=== PATIENT | male | born 1935 | race Caucasian/White ===

== ENCOUNTER 2017-08-22 17:05 | Observation (INO) ==
--- NOTE | 2017-08-22 17:58 | Emergency Department Note ---
General Adult HPI - General Chief complaint: Cold/Flu Symptoms Stated complaint: cough and rib pain Time Seen by Provider: 08/22/17 17:32 Source: patient Mode of arrival: ambulatory Limitations: no limitations - History of Present Illness HPI Narrative: 82-year-old male presents with cough worsening in the last 24 hours. He states on Saturday he started with some sinus drainage and in the last couple of days he has started to have more of a cough. He has pain in his ribs in the back from a cough. He denies shortness of breath more than normal. He does not have COPD. He states the pain in his ribs is in the back. He has not been coughing up anything. He does have a history of pneumonia. He is on blood thinners due to blood clots in his lungs. He is eating okay and drinking a little bit less. He has not had any nausea vomiting or diarrhea. - Related Data Home Medications Medication Instructions Recorded Confirmed Warfarin [Coumadin] 5 mg PO DAILY 06/14/15 08/22/17 levETIRAcetam [Levetiracetam] 500 mg PO BID 06/14/15 04/22/17 Docusate Sodium [Stool Softener] 250 mg PO DAILY 11/30/16 08/22/17 Carvedilol [Coreg] 3.125 mg PO ONCE 08/22/17 08/22/17 Previous Rx's Medication Instructions Recorded Furosemide [Lasix] 20 mg PO BIDCC #30 tablet 06/17/15 Potassium Chloride [Kdur] 10 meq PO QAMCC #30 tablet 06/17/15 Allergies Allergy/AdvReac Type Severity Reaction Status Date / Time atorvastatin Allergy Mild Joint Pain Verified 04/22/17 11:22 Review of Systems All systems ED: reviewed and negative except as stated. Past Medical History - Past Medical History Medical history: Reports: arthritis, CHF, seizures, other (hearing loss. Blood clot DVT. BiPAP CPAP dependent. Urinary retention. Prostate cancer. Factor V Leiden) Psychiatric history: Reports: no psych history Surgical history ED: Reports: appendectomy, cataract, cholecystectomy, pacemaker /AICD, other (prostatectomy. Surgery of back knee and shoulder.) Family history: Reports: non-contributory - Social History smoking status: Never smoker Alcohol use: Reports: Occasionally (2 plus drinks a day) Drug use: Reports: none Physical Exam Limitations: no limitations General appearance: alert, in no apparent distress Head: atraumatic Eye: Present: normal appearance. Absent: conjunctival injection Neck: Present: normal inspection, full ROM Chest: Present: normal inspection, symmetric chest wall rise, tenderness ( posterior lower ribs) Respiratory: Present: normal lung sounds bilaterally. Absent: wheezes Cardiovascular: Present: regular rate, normal heart sounds Abdominal: Present: soft, normal bowel sounds. Absent: tenderness Extremities: Present: normal inspection, full ROM Neurological: Present: alert, oriented X3 Psychiatric: Present: normal affect, normal mood Skin: Present: warm, dry, intact Course Course Narrative: I talked with the family about having him stay here at least for the night and they thought that that would be a good idea. He did need to have couple liters of oxygen because he had some desaturation in the low 90s. He was stable throughout his stay. Vital Signs Temperature 97.4 F 08/22/17 17:05 Pulse Rate 67 08/22/17 17:05 Respiratory Rate 16 08/22/17 17:05 Blood Pressure 133/83 08/22/17 17:05 Pulse Oximetry (%) 95 08/22/17 17:05 Temperature 97.4 F 08/22/17 17:05 Pulse Rate 67 08/22/17 17:05 Respiratory Rate 16 08/22/17 17:05 Blood Pressure 122/64 08/22/17 18:53 Pulse Oximetry (%) 94 08/22/17 18:53 Medical Decision Making - Lab Data Lab results reviewed: Yes I reviewed the patient's lab results. Result diagrams: 08/22/17 18:42 08/22/17 18:42 Lab Results 08/22/17 08/22/17 Range/Units 18:42 18:42 WBC 3.2 L (4.5-11.0) K/mcL RBC 4.11 L (4.50-5.90) M/mcL Hgb 12.5 L (13.5-16.5) g/dL Hct 36.5 L (41.0-55.0) % MCV 88.9 (80.0-100.0) fL MCH 30.4 (26.0-34.0) pg MCHC 34.2 (31.0-36.0) g/dL RDW 14.0 (11.5-14.5) % Plt Count 145 (140-440) K/mcL MPV 8.4 (7.4-10.4) fL Gran % 48.9 (38.0-78.0) % Lymph % (Auto) 36.9 (15.5-49.0) % [place] % (Auto) 13.5 H (1.0-12.0) % Eos % (Auto) 0.4 (0.0-7.0) % Baso % (Auto) 0.3 (0.0-2.0) % Gran # 1.6 L (1.8-8.0) K/mcL Lymph # (Auto) 1.2 L (1.5-4.8) K/mcL [place] # (Auto) 0.4 (0.1-0.9) K/mcL Eos # (Auto) 0 (0.0-0.7) K/mcL Baso # (Auto) 0 (0.0-0.3) K/mcL Sodium 134 (133-145) mmol/L Potassium 4.3 (3.3-5.1) mmol/L Chloride 97 (96-108) mmol/L Carbon Dioxide 25 (22-30) mmol/L Anion Gap 12.0 (8-16) BUN 8 (8-23) mg/dl Creatinine 0.8 (0.7-1.2) mg/dl GFR Calculation 83 Glucose 103 (70-105) mg/dL Calcium 8.3 L (8.6-10.4) mg/dl Total Bilirubin 0.3 (0.0-1.0) mg/dL AST 21 (0-37) U/l ALT 15 (0-40) U/l Alkaline Phosphatase 112 (39-117) U/L Total Protein 6.6 (5.9-8.4) gm/dL Albumin 4.2 (3.2-5.2) gm/dL Globulin 2.4 (2.2-3.7) gm/dL Albumin/Globulin Ratio 1.8 (1.0-2.3) - Radiology Data Radiology results reviewed: Yes I reviewed the patient's radiology results. 1. Bilateral lower lobe infiltrates consistent with pneumonia. 2. Cardiomegaly, unchanged Disposition Pt seen by AIR CONDITIONING INSTALLER/PA only: Yes Clinical Impression: Pneumonia and influenza Disposition: Xfer As Inpt ([facility]) Condition: Fair Referrals: Baldeck,Milton, [Primary Care Provider] -
--- NOTE | 2017-08-22 18:17 | XRay Report ---
INDICATION: Cough. Chest pain. TECHNIQUE: PA and lateral upright chest x-ray COMPARISON: Chest x-rays dated 11/30/2016, 05/03/2016, 06/16/2015 FINDINGS:No change in left transvenous pacemaker leads. Bilateral lower lobe infiltrates. Findings are consistent with pneumonia. An upper lungs are negative. There is cardiomegaly. This is unchanged. Vascularity is not significantly distended. No pleural fluid. IMPRESSION: 1. Bilateral lower lobe infiltrates consistent with pneumonia. 2. Cardiomegaly, unchanged Interpreted and Authenticated by: Willis Calderón 08/22/17
[2017-08-22] MEDS ORDERED: guaiFENesin/CODEINE 10 ML UDC PO ONE (19:02)
[2017-08-22 19:05] LABS: Basophils # (Auto) 0 K/mcL (0.0-0.3); Basophils % (Auto) 0.3 % (0.0-2.0); Eosinophils # (Auto) 0 K/mcL (0.0-0.7); Eosinophils % (Auto) 0.4 % (0.0-7.0); Granulocytes % (Auto) 48.9 % (38.0-78.0); Lymphocytes # (Auto) 1.2 K/mcL (1.5-4.8); Lymphocytes % (Auto) 36.9 % (15.5-49.0); Mean Cell Volume 88.9 fL (80.0-100.0); Mean Corpuscular HGB Conc 34.2 g/dL (31.0-36.0); Mean Corpuscular Hemoglobin 30.4 pg (26.0-34.0); Monocytes # (Auto) 0.4 K/mcL (0.1-0.9); Monocytes % (Auto) 13.5 % (1.0-12.0); Platelet Count 145 K/mcL (140-440); RBC 4.11 M/mcL (4.50-5.90)
[2017-08-22 19:23] LABS: ALT/SGPT 15 U/l (0-40); Albumin 4.2 gm/dL (3.2-5.2); Albumin/Globulin Ratio 1.8 (1.0-2.3); Alkaline Phosphatase 112 U/L (39-117); Blood Urea Nitrogen 8 mg/dl (8-23)
[2017-08-22] MEDS ORDERED: OSELTAMIVIR PHOSPHATE 75 MG CAPSULE PO ONE (19:27)
[2017-08-22] MEDS ORDERED: levETIRAcetam 500 MG TABLET PO ONE (20:52)
[2017-08-22] MEDS ORDERED: CARVEDILOL 3.125 MG TABLET PO SCH (22:40)
[2017-08-22] MEDS ORDERED: ACETAMINOPHEN 325 MG TABLET PO PRN (22:40)
[2017-08-22] MEDS ORDERED: cefTRIAXone 2 GM in DEXTROSE 5% IN WATER 50 ML IV SCH (22:40)
[2017-08-22] MEDS ORDERED: MAGNESIUM HYDROXIDE 30 ML ORAL.SUSP PO PRN (22:40)
[2017-08-22] MEDS ORDERED: cefTRIAXone 2 GM VIAL ONE (23:28)
--- NOTE | 2017-08-22 23:32 | Emergency Department Note ---
ED Note Addendum Note Addendum: I saw this patient with Yanira Lisa PA-C and agree with her evaluation management documentation. Is notable that he is 82 years old has influenza B bilateral pneumonia on x-ray. We started Tamiflu and contacted hospitalist Dr. Sewell, for admission as we were concerned about his stability especially as his saturations were dropping down into the low 90s. She agreed to accept the patient further inpatient care
--- NOTE | 2017-08-22 23:35 | Internal Med History&Physical ---
Medical - H&P: HPI Patient information: Note initiated : 08/22/17 at 11:35 pm Service Date, if different from initiated Date: [] Patient: Mike Diaz 82 y/o M admitted on 08/22/17 for pneumonia Chief complaint: cough and chest pain History of present illness: Mr. Diaz is a 82 year old M, with hx of recurrent CHF, s/p pacemaker placement , Factor V Leiden deficiency, DVT, seizure disorder, presented to the ED with 2- day-history of coughing and right sided pleuritic pain. Denies fever and chills. - Constitutional Constitutional: Present: as per HPI - Cardiovascular Cardiovascular: Present: leg edema, pedal edema. Absent: chest pain - Respiratory Respiratory: Present: cough, pain with cough - Gastrointestinal Gastrointestinal: Absent: abdominal pain, diarrhea - Genitourinary Genitourinary: Present: difficulty urinating. Absent: dysuria - Psychiatric Psychiatric: Absent: depression Medical - H&P: PMH Medical history: Medical History Pneumonia (Acute) ADHF (acute decompensated heart failure) (Acute) Tooth abscess (Acute) Rib pain on right side (Acute) Bronchitis (Acute) CHF NYHA class III (symptoms with mildly strenuous activities) (Acute) Postoperative bleeding from mouth (Acute) Constipation (Acute) Weakness generalized (Acute) Anticoagulant effect (Acute) Warfarin-induced coagulopathy (Acute) Pneumonia and influenza (Acute) Functional capacity: independent ambulation Smoking status: Never smoker Drug use: none Alcohol use: rarely Medical - H&P: Meds Home Medications Medication Instructions Recorded Confirmed Type Warfarin [Coumadin] 5 mg PO DAILY 06/14/15 08/22/17 History levETIRAcetam [Levetiracetam] 500 mg PO BID 06/14/15 04/22/17 History Furosemide [Lasix] 20 mg PO BIDCC #30 tablet 06/17/15 08/22/17 Rx Potassium Chloride [Kdur] 10 meq PO QAMCC #30 tablet 06/17/15 08/22/17 Rx Docusate Sodium [Stool Softener] 250 mg PO DAILY 11/30/16 08/22/17 History Carvedilol [Coreg] 3.125 mg PO ONCE 08/22/17 08/22/17 History Allergies Allergy/AdvReac Type Severity Reaction Status Date / Time atorvastatin Allergy Mild Joint Pain Verified 04/22/17 11:22 Medical - H&P: Exam - Constitutional Vitals: Temp Pulse Resp BP Pulse Ox 97.4 F 60 20 128/76 96 08/22/17 17:05 08/22/17 20:34 08/22/17 21:40 08/22/17 21:40 08/22/17 21:40 General appearance: mild distress, obese - Head Head exam: Present: normal inspection - Eye Eye exam: Present: EOMI, PERRL - Respiratory Respiratory exam: Present: chest wall tenderness, rhonchi - Cardiovascular Cardiovascular exam: Present: normal rate and rhythm - GI/Abdominal GI/Abdominal exam: Present: normal bowel sounds, soft - Extremities Exam Extremities exam: Present: pedal edema Medical - H&P: Reslt - Labs CBC & Chem 7: 08/22/17 18:42 08/22/17 18:42 Labs: Short CBC 08/22/17 Range/Units 18:42 WBC 3.2 L (4.5-11.0) K/mcL Hgb 12.5 L (13.5-16.5) g/dL Hct 36.5 L (41.0-55.0) % Plt Count 145 (140-440) K/mcL BMP 08/22/17 18:42 Sodium 134 Potassium 4.3 Chloride 97 Carbon Dioxide 25 BUN 8 Creatinine 0.8 Glucose 103 Calcium 8.3 L Liver Function 08/22/17 Range/Units 18:42 Total Bilirubin 0.3 (0.0-1.0) mg/dL AST 21 (0-37) U/l ALT 15 (0-40) U/l Alkaline Phosphatase 112 (39-117) U/L Albumin 4.2 (3.2-5.2) gm/dL - Impressions TECHNIQUE: PA and lateral upright chest x-ray COMPARISON: Chest x-rays dated 11/30/2016, 05/03/2016, 06/16/2015 FINDINGS:No change in left transvenous pacemaker leads. Bilateral lower lobe infiltrates. Findings are consistent with pneumonia. An upper lungs are negative. There is cardiomegaly. This is unchanged. Vascularity is not significantly distended. No pleural fluid. IMPRESSION: 1. Bilateral lower lobe infiltrates consistent with pneumonia. 2. Cardiomegaly, unchanged Medical - H&P: A/P (1) Pneumonia Current visit: No Status: Acute (2) Rib pain on right side Current visit: No Status: Acute - Narrative A/P Narrative: 82-YEAR-OLD MALE PRESENTED 08/22 WITH FOLLOWING PROBLEMS: ACUTE: - BILATERAL PNEUMONIA: VIRAL VS BACTERIAL - INFLUENZA POS CHRONIC MEDICAL PROBLEMS: - RECURRENT CHF - RECURRENT DVT - LEIDEN FACTOR V DEFICIENCY - SEIZURE DISORDER PLAN: Tamifu Rocephin empirically Cough suppressant and pain control continue home meds incl coumadin
[2017-08-22] MEDS: 0.9 % SODIUM CHLORIDE 10 ML SYRINGE IV SCH (23:37)
[2017-08-22] MEDS ORDERED: ACETAMINOPHEN 325 MG TABLET PO ONE (23:43)
[2017-08-22] MEDS: guaiFENesin/CODEINE 10 ML UDC PO PRN (23:58)
[2017-08-23] MEDS: 0.9 % SODIUM CHLORIDE 10 ML SYRINGE IV SCH ×4 (05:37→23:02)
[2017-08-23] MEDS: CARVEDILOL 3.125 MG TABLET PO SCH (07:51)
[2017-08-23] MEDS: FUROSEMIDE 20 MG TABLET PO SCH ×2 (07:52→17:48)
[2017-08-23] MEDS: POTASSIUM CHLORIDE 10 MEQ TABLET PO SCH (07:52)
[2017-08-23] MEDS: DOCUSATE SODIUM 100 MG CAPSULE PO SCH (08:44)
[2017-08-23] MEDS: OSELTAMIVIR PHOSPHATE 75 MG CAPSULE PO SCH ×2 (08:44→19:53)
[2017-08-23] MEDS: levETIRAcetam 500 MG TABLET PO SCH ×2 (10:27→19:53)
[2017-08-23] MEDS: oxyCODONE/APAP 5/325MG TABLET PO PRN ×2 (12:05→21:46)
[2017-08-23] MEDS ORDERED: WARFARIN 5 MG TABLET PO SCH (14:00)
[2017-08-23] MEDS: cefTRIAXone 2 GM VIAL IV SCH (14:41)
--- NOTE | 2017-08-23 21:44 | Internal Med Progress Note ---
Medical - PN: Subj Patient information: Note initiated : 08/23/17 at 9:36 pm Service Date, if different from initiated Date: [] Patient: Mike Diaz 82 y/o M admitted on 08/22/17 for Cough and Rib Pain/ Pneumonia. Mr. Diaz is a 82 year old M, with hx of recurrent CHF, s/p pacemaker placement , Factor V Leiden deficiency, DVT, seizure disorder, presented to the ED with 2- day-history of coughing and right sided pleuritic pain. Denies fever and chills. Interval history: 08/23: Continues to have harsh coughing and pleuritic pain. Feeling too weak and sick to go home. - Constitutional Vitals: Vital Signs Temp Pulse Resp BP Pulse Ox 97 F 60 18 118/62 93 08/23/17 19:57 08/23/17 19:57 08/23/17 19:57 08/23/17 19:57 08/23/17 19:57 Period Temp Pulse Resp BP Sys/Jamison Pulse Ox Last 24 Hr 96.5 F-99.7 F 60-61 16-20 114-132/54-76 91-96 Intake and Output 08/23/17 08/23/17 08/23/17 05:59 13:59 21:59 Intake Total 840 / 840 1400 / 1400 Output Total 200 / 200 975 / 975 400 / 400 Balance -200 / -200 -135 / -135 1000 / 1000 Weight 208 lb Intake & Output: Intake & Output 08/23/17 08/23/17 08/23/17 05:59 13:59 21:59 Intake Total 840 / 840 1400 / 1400 Output Total 200 / 200 975 / 975 400 / 400 Balance -200 / -200 -135 / -135 1000 / 1000 Weight 208 lb Intake: Oral 840 / 840 1400 / 1400 Output: Void Amount 200 / 200 975 / 975 400 / 400 # of times incontinent of urine 0 / 0 0 / 0 Other: Meal Breakfast Lunch Percent of Meal Consumed 75% 100% Feeding Ability Independent Independent # Voids 1 1 # Bowel Movements 1 # of times incontinent of 0 Bowels General appearance: no acute distress, obese - Respiratory Respiratory exam: Present: rhonchi - Cardiovascular Cardiovascular exam: Present: normal rate and rhythm - GI/Abdominal GI/Abdominal exam: Present: normal bowel sounds, soft - Extremities Exam Extremities exam: Present: pedal edema Medical - PN: Obj Da - Labs CBC & Chem 7: 08/22/17 18:42 08/22/17 18:42 Labs: Abnormal Lab Results 08/22/17 08/22/17 08/22/17 20:18 18:42 18:42 WBC 3.2 L RBC 4.11 L Hgb 12.5 L Hct 36.5 L [place] % (Auto) 13.5 H Gran # 1.6 L Lymph # (Auto) 1.2 L PT 23.2 H INR 2.0 H Calcium 8.3 L Meds: Medications Acetaminophen (Tylenol) 650 mg PO Q6HP PRN PRN Reason: PAIN/FEVER > 101 Carvedilol (Coreg) 3.125 mg PO [facility] Last Admin: 08/23/17 07:51 Dose: 3.125 mg Ceftriaxone Sodium (Rocephin) 2 gm IV Q24H [facility] Last Admin: 08/23/17 14:41 Dose: 2 gm Docusate Sodium (Colace) 200 mg PO DAILY [facility] Last Admin: 08/23/17 08:44 Dose: 200 mg [facility] Last Admin: 08/23/17 17:48 Dose: 20 mg Guaifenesin/Codeine Phosphate (Robitussin Ac) 10 ml PO Q4HP PRN PRN Reason: Cough Last Admin: 08/22/17 23:58 Dose: 10 ml Levetiracetam (Keppra) 500 mg PO BID [facility] Last Admin: 08/23/17 19:53 Dose: 500 mg Magnesium Hydroxide (Milk Of Magnesia) 30 ml PO DAILYP PRN PRN Reason: Constipation Last Admin: 08/23/17 14:27 Dose: 30 ml Oseltamivir Phosphate (Tamiflu) 75 mg PO BID [facility] Last Admin: 08/23/17 19:53 Dose: 75 mg Oxycodone/Acetaminophen (Percocet 5-325 Mg) 1 - 2 tab PO Q4HP PRN PRN Reason: PAIN LEVEL 3-6 Last Admin: 08/23/17 12:05 Dose: 1 tab Potassium Chloride (Kdur) 10 meq PO [facility] Last Admin: 08/23/17 07:52 Dose: 10 meq Sodium Chloride (Saline Flush) 10 ml IV Q8 [facility] Last Admin: 08/23/17 19:53 Dose: 10 ml Warfarin Sodium (Coumadin) 5 mg PO DAILY@1400 [facility] Last Admin: 08/23/17 14:19 Dose: 5 mg Medical - PN: A/P - Time Spent With Patient Total time spent is greater than 50% in coordination of care (as documented) at patient's floor/unit and/or counseling patient: (1) Pneumonia Status: Acute Current Visit: No (2) Rib pain on right side Status: Acute Current Visit: No - Narrative A/P Narrative: A/P Narrative: 82-YEAR-OLD MALE PRESENTED 08/22 WITH FOLLOWING PROBLEMS: ACUTE: - BILATERAL PNEUMONIA: VIRAL VS BACTERIAL - INFLUENZA POS CHRONIC MEDICAL PROBLEMS: - RECURRENT CHF - RECURRENT DVT - LEIDEN FACTOR V DEFICIENCY - SEIZURE DISORDER CONTNUE: Tamifu Rocephin empirically Cough suppressant and pain control continue home meds incl coumadin DISPO: tentative discharge home in am Medical - PN: Qual - Stroke Symptom Onset Unknown: No - VTE Deep Vein Thrombosis/Pulmonary Embolism Present on Admission: No
[2017-08-23] MEDS: guaiFENesin/CODEINE 10 ML UDC PO PRN (21:47)
[2017-08-24] MEDS: 0.9 % SODIUM CHLORIDE 10 ML SYRINGE IV SCH (06:00)
[2017-08-24] MEDS: FUROSEMIDE 20 MG TABLET PO SCH (08:22)
[2017-08-24] MEDS: CARVEDILOL 3.125 MG TABLET PO SCH (08:22)
[2017-08-24] MEDS: POTASSIUM CHLORIDE 10 MEQ TABLET PO SCH (08:22)
[2017-08-24] MEDS: cefTRIAXone 2 GM VIAL IV SCH (09:37)
[2017-08-24] MEDS: OSELTAMIVIR PHOSPHATE 75 MG CAPSULE PO SCH (09:38)
[2017-08-24] MEDS: DOCUSATE SODIUM 100 MG CAPSULE PO SCH (09:38)
[2017-08-24] MEDS: levETIRAcetam 500 MG TABLET PO SCH (09:39)
--- NOTE | 2017-08-24 09:53 | Discharge Summary ---
Medical - DS: Prov Patient information: Note initiated : 08/24/17 at 9:51 am Service Date, if different from initiated Date: [] Patient: Mike Diaz 82 y/o M admitted on 08/22/17 for Cough and Rib Pain/ Pneumonia. Chief Complaint: [] Date of admission: 08/22/17 22:25 Discharge date: 08/24/17 Primary care physician: Dallas Hancock Consults: 08/22/17 19:50 Consult to Physician [CONS] Stat Comment: Consulting Provider: Jorge Luis Sewell Reason For Exam: Physician to Consult Medical - DS: Meds - Discharge Medications Prescriptions: guaiFENesin/CODEINE [Robitussin AC] 10 ml PO Q4HP PRN #473 ml PRN Reason: Cough Oseltamivir Phosphate [Tamiflu] 75 mg PO BID #6 cap oxyCODONE/APAP [Percocet 5-325 mg] 1 - 2 tab PO Q6HP PRN #10 tablet PRN Reason: Pain Level 3-6 Active and Home Medications: Home Medications Warfarin [Coumadin] 5 mg PO DAILY 06/14/15 [History Confirmed 08/23/17 Last Taken 08/22/17 09:00] levETIRAcetam [Levetiracetam] 500 mg PO BID 06/14/15 [History Confirmed Last Taken 08/22/17] Furosemide [Lasix] 20 mg PO BIDCC #30 tablet 06/17/15 [Rx Confirmed 08/22/17 Last Taken 08/22/17] Potassium Chloride [Kdur] 10 meq PO QAMCC #30 tablet 06/17/15 [Rx Confirmed 06/29 Last Taken 08/22/17] Docusate Sodium [Stool Softener] 250 mg PO DAILY 11/30/16 [History Confirmed 06/29 Last Taken 08/22/17] Carvedilol [Coreg] 3.125 mg PO QAM 08/22/17 [History Confirmed 08/23/17 Last Taken 08/22/17] Medical - DS: Hosp Hospital course: Mr. Diaz is a 82 year old M A/P Narrative: 82-YEAR-OLD MALE PRESENTED 08/22 WITH FOLLOWING PROBLEMS: ACUTE: - BILATERAL PNEUMONIA: VIRAL VS BACTERIAL - INFLUENZA POS CHRONIC MEDICAL PROBLEMS: - RECURRENT CHF - RECURRENT DVT - LEIDEN FACTOR V DEFICIENCY - SEIZURE DISORDER Hospital Course: Patient was started on Tamiflu and Rocephin IV for influenza and bilateral pneumonia. Pain control was achieved with [place] 5/325. He has remained afebrile and hemodynamically stable. He was discharged in stable condition and ambulating well without assistance. Discharge diagnosis: Pneumonia, Influeza Secondary discharge diagnosis: Seizure disorder Reason for admission: Pneumonia Pertinent studies/significant findings: CXR: IMPRESSION: 1. Bilateral lower lobe infiltrates consistent with pneumonia. 2. Cardiomegaly, unchanged - Time Spent with Patient Total time spent providing and/or coordinating discharge services: Less than 30 minutes Medical - DS: Exam - Constitutional Vitals: Vital Signs Temp Pulse Resp BP Pulse Ox 08/24/17 08:00 96.4 F L 16 116/74 96 08/24/17 04:19 96.6 F L 60 18 106/60 94 08/24/17 00:00 98.7 F 60 18 114/56 93 08/23/17 19:57 97 F 60 18 118/62 93 08/23/17 16:00 96.5 F L 16 124/70 92 08/23/17 11:54 97.7 F 20 132/70 95 Intake and Output 08/23/17 08/24/17 08/24/17 21:59 05:59 13:59 Intake Total 1400 / 1400 600 / 600 300 / 300 Output Total 400 / 400 900 / 900 400 / 400 Balance 1000 / 1000 -300 / -300 -100 / -100 Intake: Oral 1400 / 1400 600 / 600 300 / 300 Output: Void Amount 400 / 400 900 / 900 400 / 400 # of times incontinent of urine 0 / 0 Other: Meal Lunch Breakfast Percent of Meal Consumed 100% 100% Feeding Ability Independent # Voids 1 # Bowel Movements 1 0 # of times incontinent of 0 Bowels Weight 209 lb Medical - DS: Data Labs on day of discharge: Labs from last 24 hours 08/24/17 08:04 PT 23.4 H INR 2.0 H Medical - DS: A/P - Patient/Caregiver Discharge Instructions Activity: increase activity as tolerated Diet: Cardiac - Problem Maintenance (1) Pneumonia Status: Acute Qualifiers: Pneumonia type: due to influenza A virus Laterality: bilateral Lung location: lower lobe of lung Qualified Code(s): J11.00 - Influenza due to unidentified influenza virus with unspecified type of pneumonia (2) Rib pain on right side Status: Acute - Follow up Plan Follow up with: Dallas Hancock DO [Primary Care Provider] - Disposition: Home, Self-Care Prognosis: Good Rehab Potential: Good Overall status at discharge: patient is progressing back to baseline Medical - DS: Qual - VTE Deep Vein Thrombosis/Pulmonary Embolism Present on Admission: No
== END 2017-08-24 13:00 | disposition home or self-care (01) ==
LOC: ED 17:05 → MEDSUR 17:05
PROVIDERS: ADMIT Specialist; ATTEND Specialist

== ENCOUNTER 2018-09-22 15:50 | Inpatient (IN) ==
--- NOTE | 2018-09-22 16:07 | Emergency Department Note ---
General Adult HPI - General Chief complaint: Cold/Flu Symptoms Stated complaint: cold/flu Time Seen by Provider: 09/22/18 16:06 Source: patient, family Mode of arrival: ambulatory Limitations: no limitations - History of Present Illness HPI Narrative: 83-year-old male presents with generally feeling poor. Has had a cold for at least a week and then the last 48 hours he became much worse. He has had a cough, runny nose, sneezing, and some intermittent diarrhea for the last week. states in the last 24-48 hours he is just gone drastically downhill. Is much more short of breath and generally weak. He is also complaining of left ear pain. Positive chills, unknown fever. No nausea or vomiting. Does have a productive cough with greenish sputum. No shortness of breath or difficulty breathing or chest pain. No abdominal pain. No rash Associated symptoms: Reports: cough, fever/chills, loss of appetite, malaise, weakness. Denies: chest pain, diaphoresis, headaches, nausea/vomiting, rash, shortness of breath, syncope - Related Data Home Medications Medication Instructions Recorded Confirmed Warfarin [Coumadin] 5 mg PO DAILY 06/14/15 01/13/18 levETIRAcetam [Levetiracetam] 500 mg PO BID 06/14/15 01/13/18 Docusate Sodium [Stool Softener] 250 mg PO DAILY 11/30/16 01/13/18 Carvedilol [Coreg] 3.125 mg PO QAM 08/22/17 01/13/18 Previous Rx's Medication Instructions Recorded Furosemide [Lasix] 20 mg PO BIDCC #30 tablet 06/17/15 Potassium Chloride [Kdur] 10 meq PO QAMCC #30 tablet 06/17/15 Oseltamivir Phosphate [Tamiflu] 75 mg PO BID #6 cap 08/24/17 guaiFENesin/CODEINE [Robitussin AC] 10 ml PO Q4HP PRN #473 ml 08/24/17 levETIRAcetam [Keppra] 500 mg PO BID tablet 08/24/17 oxyCODONE/APAP [Percocet 5-325 mg] 1 - 2 tab PO Q6HP PRN #10 tab 08/24/17 Amoxicillin/Potassium Clav 875 mg PO Q12H #20 tab 01/12/18 [Augmentin] Clindamycin HCl [Cleocin] 300 mg PO TID #30 cap 06/12/18 HYDROcodone/APAP 5/325MG [[place] 1 tab PO Q4HP PRN #20 tab 06/12/18 5-325Mg] Allergies Allergy/AdvReac Type Severity Reaction Status Date / Time atorvastatin AdvReac Intermediate Joint Pain Verified 09/22/18 15:54 Review of Systems All systems ED: reviewed and negative except as stated. Past Medical History - Past Medical History [facility] Narrative: Medical History (Last Reviewed 08/23/17 @ 01:22 by Jorge Luis Sewell MD) Pneumonia (Acute) ADHF (acute decompensated heart failure) (Acute) Tooth abscess (Acute) Rib pain on right side (Acute) Bronchitis (Acute) CHF NYHA class III (symptoms with mildly strenuous activities) (Acute) Medical history: Reports: arthritis, cancer (prostate - on androgen deprivation therapy (Lupron).), CHF, seizures, other (Hearing loss. DVT X 3. BiPAP CPAP dependent. Urinary retention. Factor V Leiden. DDD. Pacemaker. ). Denies: coronary artery disease, CVA, DM, myocardial infarction, thyroid disease, TIA Psychiatric history: Denies: anxiety, depression Surgical history ED: Reports: appendectomy, cataract, cholecystectomy, orthopedic, other (left shoulder repair. Knee. Shoulder. ), pacemaker/AICD, other (prostatectomy.) - Social History smoking status: Never smoker Alcohol use: Reports: Daily (4 oz wine daily.) Drug use: Reports: none Physical Exam Limitations: no limitations General appearance: alert, in no apparent distress Head: atraumatic, normocephalic, normal inspection Eye: Present: normal appearance. Absent: conjunctival injection ENT: normal oropharynx, mucous membranes moist, normal external ear exam, nasal congestion, other (Left TM with canal with mild injection and TM is red, dull and bulging. Right TM pearly sanchez with positive light reflex and canals clear) Neck: Present: normal inspection, trachea midline. Absent: tenderness, lymphadenopathy Chest: Present: symmetric chest wall rise Respiratory: Present: normal lung sounds bilaterally, other (Lung sounds diminished in the bases bilaterally otherwise clear throughout). Absent: respiratory distress, rales/crackles, accessory muscle use Cardiovascular: Present: regular rate, normal heart sounds Abdominal: Present: soft, normal bowel sounds. Absent: distention, tenderness, guarding, mass Extremities: Present: pedal edema (2+ bilat) Neurological: Present: alert, oriented X3 Psychiatric: Present: normal affect, normal mood Skin: Present: warm, dry, intact, normal color. Absent: rash, cyanosis, di aphoresis, erythema Course Course Narrative: 1800 I spoke with hospitalist, Dr. Landa who agrees to accept this patient. Vital Signs Temperature 98.6 F 09/22/18 15:51 Pulse Rate 66 09/22/18 15:51 Respiratory Rate 25 H 09/22/18 15:51 Blood Pressure 119/67 09/22/18 15:51 Pulse Oximetry (%) 94 09/22/18 15:51 Temperature 98.6 F 09/22/18 15:51 Pulse Rate 59 L 09/22/18 17:22 Respiratory Rate 25 H 09/22/18 15:51 Blood Pressure 115/93 09/22/18 17:31 Pulse Oximetry (%) 95 09/22/18 17:22 Medical Decision Making - Lab Data Lab results reviewed: Yes I reviewed the patient's lab results. Result diagrams: 09/22/18 16:41 09/22/18 16:41 Lab Results 09/22/18 09/22/18 Range/Units 16:41 16:41 WBC 4.8 (4.5-11.0) K/mcL RBC 3.40 L (4.50-5.90) M/mcL Hgb 10.7 L (13.5-16.5) g/dL Hct 30.9 L (41.0-55.0) % MCV 90.8 (80.0-100.0) fL MCH 31.4 (26.0-34.0) pg MCHC 34.5 (31.0-36.0) g/dL RDW 13.0 (11.5-14.5) % Plt Count 171 (140-440) K/mcL MPV 8.0 (7.4-10.4) fL Gran % 62.8 (38.0-78.0) % Lymph % (Auto) 21.4 (15.5-49.0) % [place] % (Auto) 14.6 H (1.0-12.0) % Eos % (Auto) 0.8 (0.0-7.0) % Baso % (Auto) 0.4 (0.0-2.0) % Gran # 3.0 (1.8-8.0) K/mcL Lymph # (Auto) 1.0 L (1.5-4.8) K/mcL [place] # (Auto) 0.7 (0.1-0.9) K/mcL Eos # (Auto) 0 (0.0-0.7) K/mcL Baso # (Auto) 0 (0.0-0.3) K/mcL Sodium 121 L (133-145) mmol/L Potassium 4.3 (3.3-5.1) mmol/L Chloride 86 L (96-108) mmol/L Carbon Dioxide 25 (22-30) mmol/L Anion Gap 10.0 (8-16) BUN 9 (8-23) mg/dl Creatinine 0.7 (0.7-1.2) mg/dl GFR Calculation 87 Glucose 111 H (70-105) mg/dL Calcium 8.3 L (8.6-10.4) mg/dl Total Bilirubin 1.0 (0.0-1.0) mg/dL AST 16 (0-37) U/l ALT 14 (0-40) U/l Alkaline Phosphatase 102 (39-117) U/L NT-Pro-B Natriuret Pep 1459.0 H (0-450) pg/ml Total Protein 6.1 (5.9-8.4) gm/dL Albumin 3.6 (3.2-5.2) gm/dL Globulin 2.5 (2.2-3.7) gm/dL Albumin/Globulin Ratio 1.4 (1.0-2.3) - Radiology Data Radiology results reviewed: Yes I reviewed the patient's radiology results. Disposition Pt seen by NANOTECHNOLOGIST/PA only: Yes Clinical Impression: Left otitis media, Generalized weakness, CHF (congestive heart failure) Disposition: Xfer As Inpt ([facility]) Condition: Fair Referrals: Dallas Hancock DO [Primary Care Provider] - Time of Disposition: 18:00
--- NOTE | 2018-09-22 16:23 | XRay Report ---
INDICATION: Dyspnea TECHNIQUE: AP chest x-ray,portable semiupright COMPARISON: Previous chest x-rays dated 07/15/2018 and 01/13/2018 FINDINGS:Left transvenous pacemaker leads are unchanged. There is cardiomegaly. Pulmonary vascularity is prominent consistent with pulmonary congestion. No focal parenchymal infiltrate. No definite pulmonary edema. No focal abnormality. Pulmonary vascularity is more prominent than on previous examination consistent with interval cardiac decompensation Superior subluxation of the right humeral head and Hill-Sachs deformity. Findings are chronic. There are 2 screws within the left glenoid. IMPRESSION: 1. Cardiomegaly and pulmonary congestion 2. Findings are worse than on previous examination 3. No focal pulmonary 4. 1 infiltrate Interpreted and Authenticated by: Willis Calderón 09/22/18
[2018-09-22 17:12] LABS: Basophils # (Auto) 0 K/mcL (0.0-0.3); Basophils % (Auto) 0.4 % (0.0-2.0); Eosinophils # (Auto) 0 K/mcL (0.0-0.7); Eosinophils % (Auto) 0.8 % (0.0-7.0); Granulocytes % (Auto) 62.8 % (38.0-78.0); Lymphocytes % (Auto) 21.4 % (15.5-49.0); Mean Cell Volume 90.8 fL (80.0-100.0); Mean Corpuscular HGB Conc 34.5 g/dL (31.0-36.0); Monocytes # (Auto) 0.7 K/mcL (0.1-0.9); Monocytes % (Auto) 14.6 % (1.0-12.0); Platelet Count 171 K/mcL (140-440)
[2018-09-22 17:31] LABS: ALT/SGPT 14 U/l (0-40); Albumin 3.6 gm/dL (3.2-5.2); Albumin/Globulin Ratio 1.4 (1.0-2.3); Alkaline Phosphatase 102 U/L (39-117); Blood Urea Nitrogen 9 mg/dl (8-23)
[2018-09-22] MEDS ORDERED: 0.9 % SODIUM CHLORIDE 1,000 ML IV ONE (17:34)
[2018-09-22] MEDS ORDERED: FUROSEMIDE 20 MG/2 ML VIAL IV ONE (17:57)
[2018-09-22] MEDS ORDERED: FUROSEMIDE 100 MG/10 ML VIAL IV ONE (17:58)
--- NOTE | 2018-09-22 18:08 | Internal Med History&Physical ---
Medical - H&P: [facility] Patient information: Note initiated : 09/22/18 at 6:06 pm Service Date, if different from initiated Date: [] Patient: Mike Diaz 83 y/o M admitted on for cold/flu. Chief Complaint: [] Chief complaint: SOB History of present illness: Mr. Diaz is a 83 year old with hx of recurrent CHF, s/p pacemaker placement, Factor V Leiden deficiency on Coumadin, DVT, seizure disorder, presented to the ED with worsening shortness of breath along with productive cough that has progressed over the last 48 hours. Patient has not been able to function and has been laying in bed. Patient symptom started roughly a week prior to presentation with onset of upper respiratory symptoms including sore throat runny nose red eyes and right ear pain. Patient endorses sick contact. He has not had his flu or pneumonia vaccine. Patient has not been able to sleep in the last couple of days. Substantial loss of appetite and increasing weight gain prompted patient and his to come to the ER. Initial workup was significant for profound hypoxia along with congestive heart failure on imaging. Sodium 121. Subsequently hospitalist service was consulted At the time of evaluation patient is lethargic but able to answer most of the questions. History is obtained from review of medical records/ER physicians and patient's . Patient is currently on BiPAP. He endorses some difficulty urination in light of history of prostate cancer. He also endorses over 6 pound weight gain in last 24 hours.. Denies NSAID intake Review of systems A 10 point review of system was performed and is negative except for one discussed above Medical - H&P: PMH Medical history: Medical History Pneumonia (Acute) ADHF (acute decompensated heart failure) (Acute) Tooth abscess (Acute) Rib pain on right side (Acute) Bronchitis (Acute) CHF NYHA class III (symptoms with mildly strenuous activities) (Acute) Postoperative bleeding from mouth (Acute) Constipation (Acute) Weakness generalized (Acute) Anticoagulant effect (Acute) Warfarin-induced coagulopathy (Acute) Pneumonia and influenza (Acute) Medical - H&P: Meds Home Medications Medication Instructions Recorded Confirmed Type Warfarin [Coumadin] 5 mg PO DAILY 06/14/15 01/13/18 History levETIRAcetam [Levetiracetam] 500 mg PO BID 06/14/15 01/13/18 History Furosemide [Lasix] 20 mg PO BIDCC #30 tablet 06/17/15 01/13/18 Rx Potassium Chloride [Kdur] 10 meq PO QAMCC #30 tablet 06/17/15 01/13/18 Rx Docusate Sodium [Stool Softener] 250 mg PO DAILY 11/30/16 01/13/18 History Carvedilol [Coreg] 3.125 mg PO QAM 08/22/17 01/13/18 History Oseltamivir Phosphate [Tamiflu] 75 mg PO BID #6 cap 08/24/17 01/13/18 Rx guaiFENesin/CODEINE [Robitussin AC] 10 ml PO Q4HP PRN #473 ml 08/24/17 01/13/18 Rx levETIRAcetam [Keppra] 500 mg PO BID tablet 08/24/17 01/13/18 Rx oxyCODONE/APAP [Percocet 5-325 mg] 1 - 2 tab PO Q6HP PRN #10 tab 08/24/17 01/13/18 Rx Amoxicillin/Potassium Clav 875 mg PO Q12H #20 tab 01/12/18 01/13/18 Rx [Augmentin] Clindamycin HCl [Cleocin] 300 mg PO TID #30 cap 06/12/18 Rx HYDROcodone/APAP 5/325MG [[place] 1 tab PO Q4HP PRN #20 tab 06/12/18 Rx 5-325Mg] Allergies Allergy/AdvReac Type Severity Reaction Status Date / Time atorvastatin AdvReac Intermediate Joint Pain Verified 09/22/18 15:54 Medical - H&P: Exam - Constitutional Vitals: Temp Pulse Resp BP Pulse Ox 98.6 F 59 L 25 H 115/93 95 09/22/18 15:51 09/22/18 17:22 09/22/18 15:51 09/22/18 17:31 09/22/18 17:22 General appearance: moderate distress (Shortness of breath) Exam: Head normocephalic Eye movement symmetric Oral cavity dry Slight conjunctival erythema No ear or nose discharge Throat minimal erythema S1-S2 regular rhythm, paced, pacemaker left anterior chest Diminished breath sounds bases related to bradycardia crackles bilateral lower and posterior chest Abdomen soft nontender Lower extremity significant lymphedema Skin otherwise no suspicious lesion Psych fatigue lethargic neuro nonfocal Medical - H&P: Reslt - Labs CBC & Chem 7: 02/11/19 16:41 09/22/18 16:41 Labs: Short CBC 09/22/18 Range/Units 16:41 WBC 4.8 (4.5-11.0) K/mcL Hgb 10.7 L (13.5-16.5) g/dL Hct 30.9 L (41.0-55.0) % Plt Count 171 (140-440) K/mcL BMP 09/22/18 16:41 Sodium 121 L Potassium 4.3 Chloride 86 L Carbon Dioxide 25 BUN 9 Creatinine 0.7 Glucose 111 H Calcium 8.3 L Liver Function 09/22/18 Range/Units 16:41 Total Bilirubin 1.0 (0.0-1.0) mg/dL AST 16 (0-37) U/l ALT 14 (0-40) U/l Alkaline Phosphatase 102 (39-117) U/L Albumin 3.6 (3.2-5.2) gm/dL Medical - H&P: A/P (1) ADHF (acute decompensated heart failure) Current visit: No Status: Acute * Acute decompensated heart failure -echocardiogram/diuresis/optimize treatment based on echo finding. Prior echo 11/2016 EF 45%. Rule out acute coronary event * acute hypoxic respiratory failure-secondary to pulmonary edema. Start noninvasive ventilation/supplemental oxygen. Aggressive diuresis to improve lung compliance * Symptomatic hypervolemic hyponatremia-secondary to underlying CHF. Every 4 sodium check. Aggressive diuresis. * History of DVT/factor V Leiden-continue anti-coagulation on Coumadin * Generalized weakness aggressive PT OT * Full code * Prophylaxis Coumadin Plan * Aggressive diuresis/CHF management per protocol * Repeat echocardiogram * Noninvasive ventilation in light of hypoxia history failure * Q. 4 hourly sodium checks * Anticoagulation on Coumadin * Prior medical condition management and home meds * Admit to ICU * Overall high risk mortality based on Mobile score over 15. Admit to ICU Critical care time spent over 35 minutes in management of hypoxic respiratory failure/acute heart failure/hyponatremia
[2018-09-22 18:42] LABS: Creatine Kinase 87 IU/L (24-195); Myoglobin 69 ng/ml (28-72)
[2018-09-22] MEDS ORDERED: POTASSIUM CHLORIDE 20 MEQ PACKET PO PRN (20:08)
[2018-09-22] MEDS ORDERED: ONDANSETRON 4 MG/2 ML VIAL IV PRN (20:08)
[2018-09-22] MEDS ORDERED: NITROGLYCERIN 0.4 MG TAB.SUBL SL PRN (20:08)
[2018-09-22] MEDS ORDERED: MAGNESIUM SULFATE 2 GM/50 ML BAG IV PRN (20:08)
[2018-09-22] MEDS ORDERED: LEVOFLOXACIN 750 MG/150 ML BAG IV SCH (20:08)
[2018-09-22] MEDS ORDERED: ACETAMINOPHEN 325 MG TABLET PO PRN (20:08)
[2018-09-22] MEDS ORDERED: ACETAMINOPHEN 1,000 MG/100 ML BOTTLE IV PRN (20:08)
[2018-09-22] MEDS: BUDESONIDE 0.5 MG/2 ML AMPUL.NEB NEB SCH (21:55)
[2018-09-22] MEDS: IPRATROPIUM/ALBUTEROL 3 ML AMPUL.NEB NEB PRN (21:55)
[2018-09-22] MEDS: levETIRAcetam 500 MG TABLET PO SCH (23:13)
[2018-09-22] MEDS: 0.9 % SODIUM CHLORIDE 10 ML SYRINGE IV SCH (23:13)
[2018-09-23] MEDS: FUROSEMIDE 40 MG/4 ML VIAL IV SCH ×4 (00:21→22:14)
[2018-09-23] MEDS: SENNOSIDES/DOCUSATE SODIUM 1 TAB TABLET PO SCH ×2 (00:23→20:49)
[2018-09-23] MEDS: DOCUSATE SODIUM 100 MG CAPSULE PO SCH ×3 (00:23→20:49)
[2018-09-23] MEDS: HEPARIN 5,000 UNIT/ML VIAL SQ SCH ×2 (00:23→23:08)
[2018-09-23 03:35] LABS: Appearance,Urine CLEAR; Bacteria,Urine 0 /hpf (0); Bilirubin,Urine NEG (NEG); Color,Urine COLORLESS; Glucose,Urine (UA) NEGATIVE (NEG); Leukocyte Esterase,Urine NEG /uL (NEG); Mucus,Urine FEW /hpf (0); Protein,Urine NEG (NEG); Specific Gravity,Urine 1.004 (1.000-1.035); Urine Blood 0.03 mg/dL (<0.03); Urine RBC < 1 /hpf (0-1); Urine Squamous Epithelial Cell 0 /hpf (0-4); Urine WBC 1 /hpf (0-4); Urobilinogen,Urine NEG (NEG)
[2018-09-23 06:20] LABS: Mean Cell Volume 91.6 fL (80.0-100.0); Mean Corpuscular HGB Conc 33.9 g/dL (31.0-36.0); Platelet Count 185 K/mcL (140-440); Red Cell Distribution Width 13.1 % (11.5-14.5)
[2018-09-23] MEDS: 0.9 % SODIUM CHLORIDE 10 ML SYRINGE IV SCH ×3 (06:49→22:14)
[2018-09-23 06:51] LABS: ALT/SGPT 14 U/l (0-40); Albumin 3.7 gm/dL (3.2-5.2); Albumin/Globulin Ratio 1.3 (1.0-2.3); Alkaline Phosphatase 109 U/L (39-117); Bilirubin,Direct < 0.2 mg/dL (0.0-0.3); Blood Urea Nitrogen 9 mg/dl (8-23); Gamma Glutamyl Transpeptidase 54 U/L (8-61); Uric Acid 4.7 mg/dL (2.5-8.0)
[2018-09-23 08:08] LABS: Basophils % (Manual) 1 % (0-2); Lymphocytes % 25 % (15-49); Monocytes % (Manual) 13 % (1-12); Platelet Estimate NORMAL (NORMAL); RBC Morphology NORMAL (NORMAL); Segmented Neutrophils % 61 % (38-78)
[2018-09-23] MEDS: levETIRAcetam 500 MG TABLET PO SCH ×2 (09:14→20:49)
[2018-09-23] MEDS: BUDESONIDE 0.5 MG/2 ML AMPUL.NEB NEB SCH ×2 (09:33→21:16)
[2018-09-23] MEDS: IPRATROPIUM/ALBUTEROL 3 ML AMPUL.NEB NEB PRN ×2 (09:33→21:16)
--- NOTE | 2018-09-23 11:17 | Internal Med Progress Note ---
Medical - PN: Subj Patient information: Note initiated : 09/23/18 at 11:12 am Service Date, if different from initiated Date: [] Patient: Mike Diaz 83 y/o M admitted on 09/22/18 for cold/flu. Chief Complaint: [] Interval history: Mr. 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 Patient has not been able to function and has been laying in bed. Patient symptom started roughly a week prior to presentation with onset of upper respiratory symptoms including sore throat runny nose red eyes and right ear pain. Patient endorses sick contact. He has not had his flu or pneumonia vaccine. Patient has not been able to sleep in the last couple of days. Substantial loss of appetite and increasing weight gain prompted patient and his to come to the ER. Initial workup was significant for profound hypoxia along with congestive heart failure on imaging. Sodium 121. Subsequently hospitalist service was consulted At the time of evaluation patient is lethargic but able to answer most of the questions. History is obtained from review of medical records/ER physicians and patient's . Patient is currently on BiPAP. He endorses some difficulty urination in light of history of prostate cancer. He also endorses over 6 pound weight gain in last 24 hours.. Denies NSAID intake 09/23-patient doing better since last night. Diuresing well. Malone was placed after post void schedule over 460 indicative of urinary outlet obstruction. Off BiPAP. On 1 L oxygen. Lymphedema improving. Persistent cough. No overnight fever or chills. No other concerns per staff. No telemetry events. Echocardiogram pending. T-max 101.7. Respiratory panel negative. DC antibiotic coverage. Restarted on home dose antihypertensives/antiseizure medications - Constitutional Vitals: Vital Signs Temp Pulse Resp BP Pulse Ox 98.4 F 60 17 91/44 94 09/23/18 06:01 09/23/18 09:43 09/23/18 09:43 09/23/18 08:01 09/23/18 09:34 Period Temp Pulse Resp BP Sys/Jamison Pulse Ox Last 24 Hr 98.4 F-101 F 58-99 14-25 90-130/44-93 87-100 Intake and Output 09/22/18 09/23/18 09/23/18 21:59 05:59 13:59 Intake Total 530 450 Output Total 651 3115 915 Balance -651 -2585 -465 Weight 199 lb 8 oz Intake & Output: Intake & Output 09/22/18 09/23/18 09/23/18 21:59 05:59 13:59 Intake Total 530 450 Output Total 651 3115 915 Balance -651 -2585 -465 Weight 199 lb 8 oz Intake: IV 150 Oral 380 450 Output: Urine Catheter Amount 720 840 Void Amount 650 2395 # of times incontinent of urine 1 Stool 75 Other: Meal Breakfast Percent of Meal Consumed 100% Urine Appearance Clear Uretheral (Malone) Clear Clear Urine Color Pale Uretheral (Malone) Light Carlita Pale Urine Odor Normal Uretheral (Malone) Normal Stool Color Brown Stool Consistency Liquid General appearance: cooperative, no acute distress Exam: Alert oriented Minimally labored breathing Malone is draining clear urine No anxiety Medical - PN: Obj Da - Labs CBC & Chem 7: 09/23/18 03:28 09/23/18 08:04 Labs: Abnormal Lab Results 09/23/18 09/23/18 09/23/18 08:04 03:28 03:28 WBC 4.1 L RBC 3.60 L Hgb 11.2 L Hct 33.0 L [place] % (Auto) Lymph # (Auto) Monocytes % (Manual) 13 H PT INR Sodium 130 L 130 L Chloride 90 L Glucose Calcium NT-Pro-B Natriuret Pep Urine Occult Blood 09/23/18 09/23/18 09/22/18 02:50 00:12 20:04 WBC RBC Hgb Hct [place] % (Auto) Lymph # (Auto) Monocytes % (Manual) PT 24.9 H INR 2.3 H Sodium 127 L Chloride Glucose Calcium NT-Pro-B Natriuret Pep Urine Occult Blood 0.03 A 09/22/18 09/22/18 16:41 16:41 WBC RBC 3.40 L Hgb 10.7 L Hct 30.9 L [place] % (Auto) 14.6 H Lymph # (Auto) 1.0 L Monocytes % (Manual) PT INR Sodium 121 L Chloride 86 L Glucose 111 H Calcium 8.3 L NT-Pro-B Natriuret Pep 1459.0 H Urine Occult Blood Meds: Medications Acetaminophen (Tylenol) 650 mg PO Q4-6HP PRN PRN Reason: PAIN/FEVER > 101 Albuterol/Ipratropium (Duoneb) 3 ml NEB Q4HP PRN PRN Reason: Shortness Of Breath Last Admin: 09/23/18 09:33 Dose: 3 ml Documented by: Budesonide (Pulmicort) 0.5 mg NEB Q12 [facility] Last Admin: 09/23/18 09:33 Dose: 0.5 mg Documented by: Carvedilol (Coreg) 3.125 mg PO QAM [facility] Docusate Sodium (Colace) 100 mg PO BID [facility] Last Admin: 09/23/18 09:14 Dose: Not Given Documented by: Furosemide (Lasix) 40 mg IV Q8 [facility] Last Admin: 09/23/18 06:03 Dose: 40 mg Documented by: Levofloxacin (Levaquin) 750 mg in 150 mls @ 100 mls/hr IV Q24H [facility] Last Infusion: 09/22/18 23:05 Dose: Infused Documented by: Magnesium Sulfate (Magnesium Sulfate) 2 gm in 50 mls @ 50 mls/hr IV UD PRN PRN Reason: MG = or < 1.7 Acetaminophen (Ofirmev) 1,000 mg in 100 mls @ 200 mls/hr IV Q6HP PRN PRN Reason: PAIN/FEVER > 101 Levetiracetam (Keppra) 500 mg PO BID [facility] Last Admin: 09/23/18 09:14 Dose: 500 mg Documented by: Levetiracetam (Keppra) 500 mg PO BID [facility] Nitroglycerin (Nitrostat) 0.4 mg SL Q5M PRN PRN Reason: Chest Pain Non-Formulary Medication (Mag-Oxide Magnesium) 400 mg PO DAILY [facility] Non-Formulary Medication (Magnesium Oxide [Mag-Oxide Magnesium]) 400 mg PO QDAY [facility] Ondansetron HCl (Zofran) 4 mg IV Q4-6HP PRN PRN Reason: Nausea And Vomiting Potassium Chloride (Klor-Con) 40 meq PO DAILYP PRN PRN Reason: K+ < 3.5 Potassium Chloride (Kdur) [facility] Senna/Docusate Sodium (Senna Plus Tablet) [address] [facility] Last Admin: 09/23/18 00:23 Dose: Not Given Documented by: Sodium Chloride (Saline Flush) 10 ml IV Q8 [facility] Last Admin: 09/23/18 06:49 Dose: 10 ml Documented by: Spironolactone (Aldactone) 25 mg PO QAM [facility] Warfarin Sodium (Coumadin Per Pharmacy) 1 order PO UD [facility] Warfarin Sodium (Coumadin) 7 mg PO Q3D [facility] Warfarin Sodium (Coumadin) 5 mg PO DAILY [facility] Medical - PN: A/P - Time Spent With Patient Total time spent is greater than 50% in coordination of care (as documented) at patient's floor/unit and/or counseling patient: 25 - 35 minutes (1) ADHF (acute decompensated heart failure) Status: Acute Assessment and plan: * Acute decompensated heart failure -clinically improving with aggressive diuresis. Echocardiogram pending/optimize treatment based on echo finding. Prior echo 11/2016 EF 45%. Rule out acute coronary event * acute hypoxic respiratory failure-secondary to pulmonary edema. Clinically improving. Now on 1 L oxygen. Off noninvasive ventilation, continue supplemental oxygen. * Symptomatic hypervolemic hyponatremia-clinically improving with aggressive diuresis. Sodium up to 130. Secondary to underlying CHF. * History of DVT/factor V Leiden-continue anti-coagulation on Coumadin. INR 2.3 * History of seizure disorder continue Keppra * Generalized weakness aggressive PT OT * Full code * Prophylaxis Coumadin Plan * Continue diuresis * Await echocardiogram * DC BiPAP * Monitor sodium * Stable condition management home meds * Aggressive PT OT * Coumadin dosing based on INR Current Visit: No Medical - PN: Qual - VTE Deep Vein Thrombosis/Pulmonary Embolism Present on Admission: No
[2018-09-23] MEDS ORDERED: CARVEDILOL 3.125 MG TABLET PO ONE (11:42)
[2018-09-23] MEDS ORDERED: POTASSIUM CHLORIDE 10 MEQ TABLET PO ONE (11:43)
[2018-09-23] MEDS ORDERED: SPIRONOLACTONE 25 MG TABLET PO ONE (11:44)
[2018-09-23] MEDS ORDERED: WARFARIN 5 MG TABLET PO ONE (14:00)
[2018-09-23] MEDS ORDERED: LEVOFLOXACIN 750 MG/150 ML BAG IV ONE (14:18)
--- NOTE | 2018-09-23 15:42 | XRay Report ---
CLINICAL INFORMATION: Left ankle pain TECHNIQUE: AP and crosstable lateral left ankle COMPARISON: None FINDINGS: Findings consistent with osteopenia or osteoporosis. No focal cortical destruction. No periosteal new bone formation. No plain film evidence for osteomyelitis. There is no left ankle fracture. Lateral view does not demonstrate significant tibiotalar joint effusion. No soft tissue gas or radiopaque foreign body. There is generalized periarticular soft tissue swelling IMPRESSION: 1. Soft tissue swelling 2. Findings consistent with osteopenia or acute process. No focal bone destruction. No evidence for osteomyelitis 3. No soft tissue gas or radiopaque foreign body Interpreted and Authenticated by: Willis Calderón 09/23/18
[2018-09-23] MEDS: HYDROcodone/APAP 5/325MG TABLET PO PRN ×2 (16:52→23:12)
[2018-09-23] MEDS ORDERED: levETIRAcetam 500 MG TABLET PO SCH (21:00)
[2018-09-24] MEDS: FUROSEMIDE 40 MG/4 ML VIAL IV SCH ×2 (05:44→20:38)
[2018-09-24] MEDS: 0.9 % SODIUM CHLORIDE 10 ML SYRINGE IV SCH ×3 (05:45→20:39)
[2018-09-24 06:37] LABS: Mean Cell Volume 91.7 fL (80.0-100.0); Mean Corpuscular HGB Conc 33.5 g/dL (31.0-36.0); Platelet Count 186 K/mcL (140-440); Red Cell Distribution Width 13.2 % (11.5-14.5)
[2018-09-24 07:12] LABS: ALT/SGPT 12 U/l (0-40); Albumin 3.5 gm/dL (3.2-5.2); Albumin/Globulin Ratio 1.3 (1.0-2.3); Alkaline Phosphatase 100 U/L (39-117); Bilirubin,Direct < 0.2 mg/dL (0.0-0.3); Blood Urea Nitrogen 12 mg/dl (8-23); Gamma Glutamyl Transpeptidase 51 U/L (8-61); Uric Acid 5.5 mg/dL (2.5-8.0)
[2018-09-24 07:45] LABS: Lymphocytes % 23 % (15-49); Monocytes % (Manual) 12 % (1-12); Platelet Estimate NORMAL (NORMAL); RBC Morphology NORMAL (NORMAL); Segmented Neutrophils % 65 % (38-78)
--- NOTE | 2018-09-24 07:56 | XRay Report ---
INDICATION: History of pulmonary congestion. Dyspnea. TECHNIQUE: AP chest x-ray,portable upright COMPARISON: Previous chest x-rays dated 09/22/2018, 07/15/2018, 01/13/2018, 08/22/2017 FINDINGS:No change in left transvenous pacemaker leads. Persistent cardiomegaly. Pulmonary vascularity remains prominent consistent with pulmonary congestion. No pulmonary parenchymal consolidation. There are persistent linear densities bilaterally as with atelectasis or scarring. No new abnormality. No significant interval change IMPRESSION: No significant interval change since 09/22/2018 Interpreted and Authenticated by: Willis Calderón 09/24/18
[2018-09-24] MEDS ORDERED: POTASSIUM CHLORIDE 10 MEQ TABLET PO SCH (08:00)
[2018-09-24] MEDS ORDERED: CARVEDILOL 3.125 MG TABLET PO SCH (08:00)
[2018-09-24] MEDS: DOCUSATE SODIUM 100 MG CAPSULE PO SCH ×2 (08:36→20:39)
[2018-09-24] MEDS: levETIRAcetam 500 MG TABLET PO SCH ×2 (08:37→20:39)
[2018-09-24] MEDS ORDERED: WARFARIN 5 MG TABLET PO SCH (09:00)
[2018-09-24] MEDS ORDERED: MAGNESIUM OXIDE 400 MG PO SCH (09:00)
[2018-09-24] MEDS ORDERED: MAGNESIUM OXIDE 400 MG TABLET PO SCH (09:00)
[2018-09-24] MEDS ORDERED: SPIRONOLACTONE 25 MG TABLET PO SCH (09:00)
[2018-09-24] MEDS: BUDESONIDE 0.5 MG/2 ML AMPUL.NEB NEB SCH (10:50)
--- NOTE | 2018-09-24 11:04 | Ultrasound Report ---
CLINICAL INFORMATION: Left leg pain and swelling TECHNIQUE: Grayscale and color flow Doppler spectral imaging COMPARISON: Previous examination dated 06/14/2015 FINDINGS: Left common femoral vein, proximal superficial femoral vein, mid superficial femoral vein, and popliteal vein are abnormal. These vessels are noncompressible. There is, however, antegrade flow. Appearance is consistent with chronic deep venous thrombosis and recanalization. Sonographic appearance is essentially unchanged since 06/14/2015. Calf veins are negative. Greater saphenous vein is negative. IMPRESSION: 1. Findings consistent with recanalized chronic deep venous thrombosis from the left common femoral vein to the popliteal vein 2. No evidence for acute deep venous thrombosis 3. No interval change since 2014 Interpreted and Authenticated by: Willis Calderón 09/24/18
--- NOTE | 2018-09-24 12:01 | Internal Med Progress Note ---
Medical - PN: Subj Patient information: Note initiated : 09/24/18 at 11:59 am Service Date, if different from initiated Date: [] Patient: Mike Diaz 83 y/o M admitted on 09/22/18 for cold/flu. Chief Complaint: [] Interval history: Mr. 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 Patient has not been able to function and has been laying in bed. Patient symptom started roughly a week prior to presentation with onset of upper respiratory symptoms including sore throat runny nose red eyes and right ear pain. Patient endorses sick contact. He has not had his flu or pneumonia vaccine. Patient has not been able to sleep in the last couple of days. Substantial loss of appetite and increasing weight gain prompted patient and his to come to the ER. Initial workup was significant for profound hypoxia along with congestive heart failure on imaging. Sodium 121. Subsequently hospitalist service was consulted At the time of evaluation patient is lethargic but able to answer most of the questions. History is obtained from review of medical records/ER physicians and patient's . Patient is currently on BiPAP. He endorses some difficulty urination in light of history of prostate cancer. He also endorses over 6 pound weight gain in last 24 hours.. Denies NSAID intake 09/23-patient doing better since last night. Diuresing well. Malone was placed after post void schedule over 460 indicative of urinary outlet obstruction. Off BiPAP. On 1 L oxygen. Lymphedema improving. Persistent cough. No overnight fever or chills. No other concerns per staff. No telemetry events. Echocardiogram pending. T-max 101.7. Respiratory panel negative. DC antibiotic coverage. Restarted on home dose antihypertensives/antiseizure medications 09/24-patient doing well. No overnight events. No concerns per staff. Diuresing well. DC Malone's catheter today. ~4600 cc net negative fluid balance. Off oxygen and now on room air. at bedside. Left ankle pain persistent. Negative ankle x-ray. Doppler ultrasound to rule out DVT today. However INR therapeutic at 2.6. Sodium at 128. Creatinine 1. - Constitutional Vitals: Vital Signs Temp Pulse Resp BP Pulse Ox 98.3 F 59 L 17 113/60 94 09/24/18 11:00 09/24/18 10:01 09/24/18 11:00 09/24/18 11:00 09/24/18 10:01 Period Temp Pulse Resp BP Sys/Jamison Pulse Ox Last 24 Hr 97.6 F-100.3 F 55-63 13-25 89-118/43-71 88-97 Intake and Output 09/23/18 09/24/18 09/24/18 21:59 05:59 13:59 Intake Total 480 340 300 Output Total 805 650 740 Balance -325 -310 -440 Weight 195 lb 4.8 oz Intake & Output: Intake & Output 09/23/18 09/24/18 09/24/18 21:59 05:59 13:59 Intake Total 480 340 300 Output Total 805 650 740 Balance -325 -310 -440 Weight 195 lb 4.8 oz Intake: Oral 480 340 300 Output: Urine Catheter Amount 805 550 740 Stool 100 Other: Meal Dinner Breakfast Percent of Meal Consumed 50% 75% Feeding Ability Independent Assist with Tray Set Up Urine Appearance Clear Clear Uretheral (Malone) Clear Clear Clear Urine Color Pale Dark Carlita Uretheral (Malone) Light Carlita Light Carlita Pale Urine Odor Normal Strong Stool Size Small Stool Consistency Watery General appearance: no acute distress Exam: Alert and oriented sitting on chair nonlabored breathing Malone draining clear urine No anxiety Lymphedema much improved left lower extremity Left ankle swollen and warm Medical - PN: Obj Da - Labs CBC & Chem 7: 09/24/18 03:38 09/24/18 03:38 Labs: Abnormal Lab Results 09/24/18 09/24/18 09/24/18 03:38 03:38 03:38 WBC RBC 3.60 L Hgb 11.1 L Hct 33.0 L [place] % (Auto) Lymph # (Auto) Monocytes % (Manual) PT 27.8 H INR 2.6 H Sodium 128 L Chloride 89 L Glucose 127 H Calcium NT-Pro-B Natriuret Pep Urine Occult Blood 09/23/18 09/23/18 09/23/18 20:00 17:35 14:00 WBC RBC Hgb Hct [place] % (Auto) Lymph # (Auto) Monocytes % (Manual) PT INR Sodium 129 L 128 L 128 L Chloride Glucose Calcium NT-Pro-B Natriuret Pep Urine Occult Blood 09/23/18 09/23/18 09/23/18 12:00 08:04 03:28 WBC RBC Hgb Hct [place] % (Auto) Lymph # (Auto) Monocytes % (Manual) PT 24.7 H INR 2.3 H Sodium 130 L 130 L Chloride 90 L Glucose Calcium NT-Pro-B Natriuret Pep Urine Occult Blood 09/23/18 09/23/18 09/23/18 03:28 02:50 00:12 WBC 4.1 L RBC 3.60 L Hgb 11.2 L Hct 33.0 L [place] % (Auto) Lymph # (Auto) Monocytes % (Manual) 13 H PT INR Sodium 127 L Chloride Glucose Calcium NT-Pro-B Natriuret Pep Urine Occult Blood 0.03 A 09/22/18 09/22/18 09/22/18 20:04 16:41 16:41 WBC RBC 3.40 L Hgb 10.7 L Hct 30.9 L [place] % (Auto) 14.6 H Lymph # (Auto) 1.0 L Monocytes % (Manual) PT 24.9 H INR 2.3 H Sodium 121 L Chloride 86 L Glucose 111 H Calcium 8.3 L NT-Pro-B Natriuret Pep 1459.0 H Urine Occult Blood Meds: Medications Acetaminophen (Tylenol) 650 mg PO Q4-6HP PRN PRN Reason: PAIN/FEVER > 101 Last Admin: 09/23/18 15:11 Dose: 650 mg Documented by: Hydrocodone Bitart/Acetaminophen ([place] 5/325mg) 1 tab PO Q6HP PRN PRN Reason: PAIN LEVEL 3-6 Last Admin: 09/23/18 23:12 Dose: 1 tab Documented by: Albuterol/Ipratropium (Duoneb) 3 ml NEB Q4HP PRN PRN Reason: Shortness Of Breath Last Admin: 09/23/18 21:16 Dose: 3 ml Documented by: Budesonide (Pulmicort) 0.5 mg NEB Q12 [facility] Last Admin: 09/24/18 10:50 Dose: Not Given Documented by: Carvedilol (Coreg) 3.125 mg PO [facility] Last Admin: 09/24/18 08:37 Dose: 3.125 mg Documented by: Docusate Sodium (Colace) 100 mg PO BID [facility] Last Admin: 09/24/18 08:36 Dose: 100 mg Documented by: Furosemide (Lasix) 40 mg IV Q8 [facility] Last Admin: 09/24/18 05:44 Dose: 40 mg Documented by: Magnesium Sulfate (Magnesium Sulfate) 2 gm in 50 mls @ 50 mls/hr IV UD PRN PRN Reason: MG = or < 1.7 Acetaminophen (Ofirmev) 1,000 mg in 100 mls @ 200 mls/hr IV Q6HP PRN PRN Reason: PAIN/FEVER > 101 Levetiracetam (Keppra) 500 mg PO BID [facility] Last Admin: 09/24/18 08:37 Dose: 500 mg Documented by: Magnesium Oxide (Magnesium Oxide) 400 mg PO DAILY [facility] Last Admin: 09/24/18 08:36 Dose: 400 mg Documented by: Nitroglycerin (Nitrostat) 0.4 mg SL Q5M PRN PRN Reason: Chest Pain Ondansetron HCl (Zofran) 4 mg IV Q4-6HP PRN PRN Reason: Nausea And Vomiting Potassium Chloride (Klor-Con) 40 meq PO DAILYP PRN PRN Reason: K+ < 3.5 Potassium [facility] ([facility]ur) [facility] Last Admin: 09/24/18 08:36 Dose: 10 meq Documented by: Senna/Docusate Sodium (Senna Plus Tablet) 1 tab PO HS [facility] Last Admin: 09/23/18 20:49 Dose: 1 tab Documented by: Sodium Chloride (Saline Flush) 10 ml IV Q8 [facility] Last Admin: 09/24/18 05:45 Dose: 10 ml Documented by: Spironolactone (Aldactone) 25 mg PO QAM [facility] Last Admin: 09/24/18 08:36 Dose: 25 mg Documented by: Warfarin Sodium (Coumadin Per Pharmacy) [address] [facility] [place] Sodium (Coumadin) 2.5 mg PO ONCE@1400 ONE Stop: 09/24/18 14:01 Medical - PN: A/P - Time Spent With Patient Total time spent is greater than 50% in coordination of care (as documented) at patient's floor/unit and/or counseling patient: 25 - 35 minutes (1) ADHF (acute decompensated heart failure) Status: Acute Assessment and plan: * Acute decompensated heart failure -clinically improving with aggressive diuresis. Echocardiogram reveals EF 55% with moderate pulmonary hypertension 50-70 pulmonary artery pressure. Prior echo 11/2016 EF 45%. No evidence of ACS. Continue Coreg/spironolactone/nitroglycerin/diuretic * acute hypoxic respiratory failure-secondary to pulmonary edema. Clinically improving. Now on 1 L oxygen. Off noninvasive ventilation, continue supplemental oxygen. * Left ankle swelling-rule out DVT. Negative ankle x-ray. Suspect acute gout flare given her prior history of gout. * Symptomatic hypervolemic hyponatremia-clinically improving with aggressive diuresis. Sodium up to 130. Secondary to underlying CHF. * History of DVT/factor V Leiden-continue anti-coagulation on Coumadin. INR 2.3 * History of seizure disorder continue Keppra * Generalized weakness clinically improving with aggressive PT OT * Full code * Prophylaxis Coumadin Plan * Lower diuretics * Start oral steroid for gout * Doppler US left lower extremity * DC BiPAP * Aggressive PT OT/nutrition support * Coumadin dosing based on INR Current Visit: No Medical - PN: Qual - VTE Deep Vein Thrombosis/Pulmonary Embolism Present on Admission: No
[2018-09-24] MEDS ORDERED: predniSONE 20 MG TABLET PO ONE (12:05)
[2018-09-24] MEDS ORDERED: COLCHICINE 0.6 MG TABLET PO ONE (12:08)
[2018-09-24] MEDS ORDERED: WARFARIN 2.5 MG TABLET PO ONE (14:00)
[2018-09-24] MEDS ORDERED: POTASSIUM CHLORIDE 20 MEQ PACKET PO PRN (15:19)
[2018-09-24] MEDS ORDERED: ACETAMINOPHEN 325 MG TABLET PO PRN (15:19)
[2018-09-24] MEDS ORDERED: MAGNESIUM SULFATE 2 GM/50 ML BAG IV PRN (15:19)
[2018-09-24] MEDS ORDERED: ACETAMINOPHEN 1,000 MG/100 ML BOTTLE IV PRN (15:19)
[2018-09-24] MEDS ORDERED: NITROGLYCERIN 0.4 MG TAB.SUBL SL PRN (15:19)
[2018-09-24] MEDS ORDERED: IPRATROPIUM/ALBUTEROL 3 ML AMPUL.NEB NEB PRN (15:19)
[2018-09-24] MEDS ORDERED: HYDROcodone/APAP 5/325MG TABLET PO PRN (15:19)
[2018-09-24] MEDS ORDERED: ONDANSETRON 4 MG/2 ML VIAL IV PRN (15:19)
[2018-09-24] MEDS: SENNOSIDES/DOCUSATE SODIUM 1 TAB TABLET PO SCH (20:39)
[2018-09-24] MEDS ORDERED: FUROSEMIDE 40 MG/4 ML VIAL IV SCH (21:00)
[2018-09-25 05:39] LABS: Mean Cell Volume 91.6 fL (80.0-100.0); Mean Corpuscular HGB Conc 34.3 g/dL (31.0-36.0); Platelet Count 232 K/mcL (140-440); RBC 3.64 M/mcL (4.50-5.90); Red Cell Distribution Width 13.4 % (11.5-14.5)
[2018-09-25] MEDS: 0.9 % SODIUM CHLORIDE 10 ML SYRINGE IV SCH ×3 (06:00→21:32)
[2018-09-25 06:31] LABS: ALT/SGPT 13 U/l (0-40); Albumin 3.4 gm/dL (3.2-5.2); Albumin/Globulin Ratio 1.1 (1.0-2.3); Alkaline Phosphatase 104 U/L (39-117); Bilirubin,Direct < 0.2 mg/dL (0.0-0.3); Blood Urea Nitrogen 16 mg/dl (8-23); Gamma Glutamyl Transpeptidase 57 U/L (8-61); Uric Acid 6.1 mg/dL (2.5-8.0)
[2018-09-25 06:52] LABS: Lymphocytes % 22 % (15-49); Monocytes % (Manual) 14 % (1-12); Platelet Estimate NORMAL (NORMAL); RBC Morphology NORMAL (NORMAL); Segmented Neutrophils % 64 % (38-78)
[2018-09-25] MEDS ORDERED: predniSONE 20 MG TABLET PO SCH (08:00)
[2018-09-25] MEDS: FUROSEMIDE 40 MG/4 ML VIAL IV SCH ×2 (08:40→21:31)
[2018-09-25] MEDS: DOCUSATE SODIUM 100 MG CAPSULE PO SCH ×2 (08:41→21:31)
[2018-09-25] MEDS: MAGNESIUM OXIDE 400 MG TABLET PO SCH (08:41)
[2018-09-25] MEDS: levETIRAcetam 500 MG TABLET PO SCH ×2 (08:41→21:31)
[2018-09-25] MEDS: POTASSIUM CHLORIDE 10 MEQ TABLET PO SCH (08:42)
[2018-09-25] MEDS: CARVEDILOL 3.125 MG TABLET PO SCH (08:42)
[2018-09-25] MEDS: SPIRONOLACTONE 25 MG TABLET PO SCH (08:42)
--- NOTE | 2018-09-25 10:10 | Internal Med Progress Note ---
Medical - PN: Subj Patient information: Note initiated : 09/25/18 at 10:07 am Service Date, if different from initiated Date: [] Patient: Mike Diaz 83 y/o M admitted on 09/22/18 for cold/flu. Chief Complaint: [] Interval history: Mr. 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 Patient has not been able to function and has been laying in bed. Patient symptom started roughly a week prior to presentation with onset of upper respiratory symptoms including sore throat runny nose red eyes and right ear pain. Patient endorses sick contact. He has not had his flu or pneumonia vaccine. Patient has not been able to sleep in the last couple of days. Substantial loss of appetite and increasing weight gain prompted patient and his to come to the ER. Initial workup was significant for profound hypoxia along with congestive heart failure on imaging. Sodium 121. Subsequently hospitalist service was consulted At the time of evaluation patient is lethargic but able to answer most of the questions. History is obtained from review of medical records/ER physicians and patient's . Patient is currently on BiPAP. He endorses some difficulty urination in light of history of prostate cancer. He also endorses over 6 pound weight gain in last 24 hours.. Denies NSAID intake 09/23-patient doing better since last night. Diuresing well. Malone was placed after post void schedule over 460 indicative of urinary outlet obstruction. Off BiPAP. On 1 L oxygen. Lymphedema improving. Persistent cough. No overnight fever or chills. No other concerns per staff. No telemetry events. Echocardiogram pending. T-max 101.7. Respiratory panel negative. DC antibiotic coverage. Restarted on home dose antihypertensives/antiseizure medications 09/24-patient doing well. No overnight events. No concerns per staff. Diuresing well. DC Malone's catheter today. ~4600 cc net negative fluid balance. Off oxygen and now on room air. at bedside. Left ankle pain persistent. Negative ankle x-ray. Doppler ultrasound to rule out DVT today. However INR therapeutic at 2.6. Sodium at 128. Creatinine 1. 09/25-patient doing well. Better than previous day. On room air oxygen. Diuresing well. Ultrasound shows chronic left lower extremity DVTs. Redness and swelling improving. On colchicine for suspected gout. No overnight fever chills nausea vomiting. No concerns per nursing staff.Currently on room air - Constitutional Vitals: Vital Signs Temp Pulse Resp BP Pulse Ox 97.1 F 60 16 123/72 92 09/25/18 06:47 09/25/18 06:47 09/25/18 06:47 09/25/18 06:47 09/25/18 06:47 Period Temp Pulse Resp BP Sys/Jamison Pulse Ox Last 24 Hr 97.1 F-99.1 F 59-62 14-20 103-123/48-72 90-94 Intake and Output 09/24/18 09/25/18 09/25/18 21:59 05:59 13:59 Intake Total 360 240 Output Total 361 276 200 Balance -1 -36 -200 Weight 193 lb Intake & Output: Intake & Output 09/24/18 09/25/18 09/25/18 21:59 05:59 13:59 Intake Total 360 240 Output Total 361 276 200 Balance -1 -36 -200 Weight 193 lb Intake: Oral 360 240 Output: Urine Catheter Amount 210 Void Amount 150 275 200 # of times incontinent of urine 1 1 Other: Meal Dinner Percent of Meal Consumed 100% Feeding Ability Independent Urine Appearance Clear Clear Urine Color Dark Yellow Bright Yellow # Voids 1 1 General appearance: no acute distress Exam: Alert oriented nonlabored breathing Minimal anxiety nondistended abdomen Medical - PN: Obj Da - Labs CBC & Chem 7: 09/25/18 04:13 09/25/18 04:13 Labs: Abnormal Lab Results 09/25/18 09/25/18 09/25/18 04:13 04:13 04:13 WBC RBC 3.64 L Hgb 11.4 L Hct 33.3 L [place] % (Auto) Lymph # (Auto) Monocytes % (Manual) 14 H PT 24.5 H INR 2.2 H Sodium 129 L Chloride 88 L Glucose 157 H Calcium NT-Pro-B Natriuret Pep Urine Occult Blood 09/24/18 09/24/18 09/24/18 03:38 03:38 03:38 WBC RBC 3.60 L Hgb 11.1 L Hct 33.0 L [place] % (Auto) Lymph # (Auto) Monocytes % (Manual) PT 27.8 H INR 2.6 H Sodium 128 L Chloride 89 L Glucose 127 H Calcium NT-Pro-B Natriuret Pep Urine Occult Blood 09/23/18 09/23/18 09/23/18 20:00 17:35 14:00 WBC RBC Hgb Hct [place] % (Auto) Lymph # (Auto) Monocytes % (Manual) PT INR Sodium 129 L 128 L 128 L Chloride Glucose Calcium NT-Pro-B Natriuret Pep Urine Occult Blood 09/23/18 09/23/18 09/23/18 12:00 08:04 03:28 WBC RBC Hgb Hct [place] % (Auto) Lymph # (Auto) Monocytes % (Manual) PT 24.7 H INR 2.3 H Sodium 130 L 130 L Chloride 90 L Glucose Calcium NT-Pro-B Natriuret Pep Urine Occult Blood 09/23/18 09/23/18 09/23/18 03:28 02:50 00:12 WBC 4.1 L RBC 3.60 L Hgb 11.2 L Hct 33.0 L [place] % (Auto) Lymph # (Auto) Monocytes % (Manual) 13 H PT INR Sodium 127 L Chloride Glucose Calcium NT-Pro-B Natriuret Pep Urine Occult Blood 0.03 A 09/22/18 09/22/18 09/22/18 20:04 16:41 16:41 WBC RBC 3.40 L Hgb 10.7 L Hct 30.9 L [place] % (Auto) 14.6 H Lymph # (Auto) 1.0 L Monocytes % (Manual) PT 24.9 H INR 2.3 H Sodium 121 L Chloride 86 L Glucose 111 H Calcium 8.3 L NT-Pro-B Natriuret Pep 1459.0 H Urine Occult Blood Meds: Medications Acetaminophen (Tylenol) 650 mg PO Q4-6HP PRN PRN Reason: PAIN/FEVER > 101 Hydrocodone Bitart/Acetaminophen ([place] 5/325mg) 1 tab PO Q6HP PRN PRN Reason: PAIN LEVEL 3-6 Albuterol/Ipratropium (Duoneb) 3 ml NEB Q4HP PRN PRN Reason: Shortness Of Breath Budesonide (Pulmicort) 0.5 mg NEB Q12 [facility] Car[facility] ([facility]g) [facility] Last Admin: 09/25/18 08:42 Dose: 3.125 mg Documented by: Colchicine (Colcrys) 0.3 mg PO Q48H [facility] Docusate Sodium (Colace) 100 mg PO BID [facility] Last Admin: 09/25/18 08:41 Dose: 100 mg Documented by: Furosemide (Lasix) 40 mg IV BID [facility] Last Admin: 09/25/18 08:40 Dose: 40 mg Documented by: Magnesium Sulfate (Magnesium Sulfate) 2 gm in 50 mls @ 50 mls/hr IV UD PRN PRN Reason: MG = or < 1.7 Acetaminophen (Ofirmev) 1,000 mg in 100 mls @ 200 mls/hr IV Q6HP PRN PRN Reason: PAIN/FEVER > 101 Levetiracetam (Keppra) 500 mg PO BID [facility] Last Admin: 09/25/18 08:41 Dose: 500 mg Documented by: Magnesium Oxide (Magnesium Oxide) 400 mg PO DAILY [facility] Last Admin: 09/25/18 08:41 Dose: 400 mg Documented by: Nitroglycerin (Nitrostat) 0.4 mg SL Q5M PRN PRN Reason: Chest Pain Ondansetron HCl (Zofran) 4 mg IV Q4-6HP PRN PRN Reason: Nausea And Vomiting Potassium Chloride (Klor-Con) 40 meq PO DAILYP PRN PRN Reason: K+ < 3.5 Potassium Chloride (Kdur) 10 meq PO [facility] Last Admin: 09/25/18 08:42 Dose: 10 meq Documented by: Senna/Docusate Sodium (Senna Plus Tablet) 1 tab PO HS [facility] Last Admin: 09/24/18 20:39 Dose: 1 tab Documented by: Sodium Chloride (Saline Flush) 10 ml IV Q8 [facility] Last Admin: 09/24/18 20:39 Dose: 10 ml Documented by: Spironolactone (Aldactone) 25 mg PO M [facility] Last Admin: 09/25/18 08:42 Dose: 25 mg Documented by: Warfarin S[place] (Coumadin Per Pharmacy) 1 [place] [facility] [place] - PN: A/P - Time Spent With Patient Total time spent is greater than 50% in coordination of care (as documented) at patient's floor/unit and/or counseling patient: 25 - 35 minutes (1) ADHF (acute decompensated heart failure) Status: Acute Assessment and plan: * Acute decompensated heart failure -clinically improving with aggressive diuresis. Echocardiogram reveals EF 55% with moderate pulmonary hypertension 50-70 pulmonary artery pressure. Prior echo 11/2016 EF 45%. No evidence of ACS. Continue Coreg/spironolactone/nitroglycerin/diuretic * acute hypoxic respiratory failure-secondary to pulmonary edema. Clinically resolved. Off noninvasive ventilation. Now on room air * Acute gout flare left ankle - Negative ankle x-ray. Clinically improved on colchicine. * Symptomatic hypervolemic hyponatremia-clinically improving with aggressive diuresis. Sodium up to 130. Secondary to underlying CHF. * History of left lower extremity DVT/factor V Leiden-repeat Doppler ultrasound reveals persistent chronic DVT. On anticoagulation, INR therapeutic * History of seizure disorder continue Keppra * Generalized weakness clinically improving with aggressive PT OT * Full code * Prophylaxis Coumadin Plan * Continue diuretics * Continue colchicine * Aggressive PT OT/nutrition support * Coumadin dosing based on INR * Discharge planning for case management likely to SNF Current Visit: No Medical - PN: Qual - VTE Deep Vein Thrombosis/Pulmonary Embolism Present on Admission: No
[2018-09-25] MEDS: BUDESONIDE 0.5 MG/2 ML AMPUL.NEB NEB SCH ×3 (13:51→21:32)
[2018-09-25] MEDS ORDERED: WARFARIN 5 MG TABLET PO ONE (14:00)
[2018-09-25] MEDS ORDERED: BISACODYL 10 MG SUPP.RECT PR ONE ×2 (14:29→14:31)
[2018-09-25] MEDS: SENNOSIDES/DOCUSATE SODIUM 1 TAB TABLET PO SCH (21:32)
[2018-09-26 07:00] LABS: Mean Cell Volume 92.7 fL (80.0-100.0); Mean Corpuscular HGB Conc 33.6 g/dL (31.0-36.0); Platelet Count 242 K/mcL (140-440); Red Cell Distribution Width 13.3 % (11.5-14.5)
[2018-09-26 07:14] LABS: ALT/SGPT 16 U/l (0-40); Albumin 3.4 gm/dL (3.2-5.2); Albumin/Globulin Ratio 1.3 (1.0-2.3); Alkaline Phosphatase 100 U/L (39-117); Bilirubin,Direct < 0.2 mg/dL (0.0-0.3); Blood Urea Nitrogen 18 mg/dl (8-23); Gamma Glutamyl Transpeptidase 53 U/L (8-61); Uric Acid 6.8 mg/dL (2.5-8.0)
[2018-09-26 08:04] LABS: Band Neutrophils % 1 % (0-10); Eosinophils % (Manual) 5 % (0-7); Lymphocytes % 41 % (15-49); Monocytes % (Manual) 8 % (1-12); Platelet Estimate NORMAL (NORMAL); RBC Morphology NORMAL (NORMAL); Segmented Neutrophils % 45 % (38-78)
[2018-09-26] MEDS: DOCUSATE SODIUM 100 MG CAPSULE PO SCH (08:21)
[2018-09-26] MEDS: FUROSEMIDE 40 MG/4 ML VIAL IV SCH (08:21)
[2018-09-26] MEDS: MAGNESIUM OXIDE 400 MG TABLET PO SCH (08:21)
[2018-09-26] MEDS: CARVEDILOL 3.125 MG TABLET PO SCH (08:21)
[2018-09-26] MEDS: levETIRAcetam 500 MG TABLET PO SCH (08:21)
[2018-09-26] MEDS: SPIRONOLACTONE 25 MG TABLET PO SCH (08:21)
[2018-09-26] MEDS: POTASSIUM CHLORIDE 10 MEQ TABLET PO SCH (08:21)
[2018-09-26] MEDS: 0.9 % SODIUM CHLORIDE 10 ML SYRINGE IV SCH (08:23)
[2018-09-26] MEDS ORDERED: COLCHICINE 0.6 MG TABLET PO SCH ×2 (09:00)
--- NOTE | 2018-09-26 09:56 | Discharge Summary ---
Medical - DS: Prov Patient information: Note initiated : 09/26/18 at 9:52 am Service Date, if different from initiated Date: [] Patient: Mike Diaz 83 y/o M admitted on 09/22/18 for cold/flu. Chief Complaint: [] Date of admission: 09/22/18 19:45 Discharge date: 09/26/18 Primary care physician: Dallas Hancock Consults: 09/22/18 Consult to Physician [CONS] Stat Comment: Consulting Provider: Rafael Pittman Reason For Exam: Physician to Consult Medical - DS: Meds - Discharge Medications Prescriptions: Bisacodyl [Dulcolax] 10 mg NE DAILYP PRN #14 supp.rect PRN Reason: Constipation Colchicine [Colcrys] 0.3 mg PO Q48H #10 tablet Docusate Sodium [Colace] 100 mg PO BID #30 capsule Furosemide [Lasix] 40 mg PO BID #60 tablet Sennosides/Docusate Sodium [Senna Plus Tablet] 1 tab PO HS #30 tablet Active and Home Medications: Home Medications Warfarin [Coumadin] 5 mg PO DAILY 06/14/15 [History Confirmed 09/23/18 Last Taken 09/21/18 09:00] Potassium Chloride [Kdur] 10 meq PO QAMCC #30 tablet 06/17/15 [Rx Confirmed 09/22/18 Last Taken 09/22/18 09:00] Carvedilol [Coreg] 3.125 mg PO QAM 08/22/17 [History Confirmed 09/22/18 Last Taken 09/22/18 09:00] levETIRAcetam [Keppra] 500 mg PO BID tablet 08/24/17 [Rx Confirmed 09/22/18 Last Taken 09/22/18 09:00] Magnesium Oxide [Mag-Oxide Magnesium] 400 mg PO QDAY 09/22/18 [History Confirmed 09/22/18 Last Taken 09/22/18 09:00] Spironolactone [Aldactone] 12.5 mg PO QAM 09/22/18 [History Confirmed 09/24/18 Last Taken 09/22/18 09:00] Warfarin [Coumadin] 2 mg PO Q3D 09/23/18 [History Confirmed 09/24/18 Last Taken 09/22/18 09:00] Bisacodyl [Dulcolax] 10 mg NE DAILYP PRN #14 supp.rect 09/26/18 [Rx Last Taken Unknown] Colchicine [Colcrys] 0.3 mg PO Q48H #10 tablet 09/26/18 [Rx Last Taken Unknown] Docusate Sodium [Colace] 100 mg PO BID #30 capsule 09/26/18 [Rx Last Taken Unknown] Furosemide [Lasix] 40 mg PO BID #60 tablet 09/26/18 [Rx Last Taken Unknown] Sennosides/Docusate Sodium [Senna Plus Tablet] 1 tab PO HS #30 tablet 09/26/18 [Rx Last Taken Unknown] Medical - DS: Hosp Hospital course: Discharge diagnosis * Acute decompensated heart failure -clinically improving with aggressive diuresis. Echocardiogram reveals EF 55% with moderate pulmonary hypertension 50-70 pulmonary artery pressure. Prior echo 11/2016 EF 45%. No evidence of ACS. Continue Coreg/spironolactone/nitroglycerin/diuretic as outpatient. Clinically much better. [facility] continued post hospitalization rehab * acute hypoxic respiratory failure-secondary to pulmonary edema. Clinically resolved. Off noninvasive ventilation. Now on room air * Acute gout flare left ankle - Negative ankle x-ray. Clinically improved on colchicine. Continue for additional 3 days followed by as needed colchicine * Symptomatic hypervolemic hyponatremia-clinically improving with aggressive diuresis. Sodium up to 130. Secondary to underlying CHF. * History of left lower extremity DVT/factor V Leiden-repeat Doppler ultrasound reveals persistent chronic DVT. On anticoagulation, INR therapeutic * History of seizure disorder continue Keppra * Generalized weakness clinically improving with aggressive PT OT at [facility] Brief hospital course Mr. Diaz is a 83 year old with hx of recurrent CHF, s/p pacemaker placement, Factor V Leiden deficiency on Coumadin, DVT, seizure disorder, presented to the ED with worsening shortness of breath along with productive cough that has progressed over the last 48 hours. Patient has not been able to function and has been laying in bed. Patient symptom started roughly a week prior to presentation with onset of upper respiratory symptoms including sore throat runny nose red eyes and right ear pain. Patient endorses sick contact. He has not had his flu or pneumonia vaccine. Patient has not been able to sleep in the last couple of days. Substantial loss of appetite and increasing weight gain prompted patient and his to come to the ER. Initial workup was significant for profound hypoxia along with congestive heart failure on imaging. Sodium 121. Subsequently hospitalist service was consulted At the time of evaluation patient is lethargic but able to answer most of the questions. History is obtained from review of medical records/ER physicians and patient's . Patient is currently on BiPAP. He endorses some difficulty urination in light of history of prostate cancer. He also endorses over 6 pound weight gain in last 24 hours.. Denies NSAID intake 09/23-patient doing better since last night. Diuresing well. Malone was placed after post void schedule over 460 indicative of urinary outlet obstruction. Off BiPAP. On 1 L oxygen. Lymphedema improving. Persistent cough. No overnight fever or chills. No other concerns per staff. No telemetry events. Echocardiogram pending. T-max 101.7. Respiratory panel negative. DC antibiotic coverage. Restarted on home dose antihypertensives/antiseizure medications 09/24-patient doing well. No overnight events. No concerns per staff. Diuresing well. DC Malone's catheter today. ~4600 cc net negative fluid balance . Off oxygen and now on room air. at bedside. Left ankle pain persistent. Negative ankle x-ray. Doppler ultrasound to rule out DVT today. However INR therapeutic at 2.6. Sodium at 128. Creatinine 1. 09/25-patient doing well. Better than previous day. On room air oxygen. Diuresing well. Ultrasound shows chronic left lower extremity DVTs. Redness and swelling improving. On colchicine for suspected gout. No overnight fever chills nausea vomiting. No concerns per nursing staff.Currently on room air 09/26-patient doing well. Left ankle swelling and pain resolved. Now on room air. Ambulating. Complains of constipation but improved after suppository. Continue Lasix twice a day along with aggressive rehab. Daily weights. Detailed discharge instructions below Discharge diagnosis: . - Time Spent with Patient Total time spent providing and/or coordinating discharge services: Greater than 30 minutes Medical - DS: Exam - Constitutional Vitals: Vital Signs Temp Pulse Resp BP BP Pulse Ox 09/26/18 06:30 97.7 F 20 104/58 92 09/26/18 04:02 16 130/65 95 09/26/18 00:59 98.3 F 18 120/78 92 09/25/18 21:34 98.1 F 18 121/60 93 09/25/18 15:57 97.4 F 64 18 112/67 92 09/25/18 12:12 97.4 F 60 18 107/63 Intake and Output 09/25/18 09/26/18 09/26/18 21:59 05:59 13:59 Intake Total 1120 700 Output Total 100 825 Balance 1020 -125 Intake: Oral 1120 GI Tube Flush 700 Output: Void Amount 100 825 Other: Meal Dinner Egg salad sandwich Percent of Meal Consumed 100% 50% Feeding Ability Independent Urine Appearance Clear Clear Urine Color Pale Urine Odor Normal Stool Size Large Small Stool Color Brown Yellow Yellow Stool Consistency Soft Formed # Voids 1 1 1 # Bowel Movements 1 1 Weight 192 lb 12.8 oz Medical - DS: Data Labs on day of discharge: Labs from last 24 hours 09/26/18 09/26/18 09/26/18 04:53 04:53 04:53 WBC 4.3 L RBC 3.60 L Hgb 11.2 L Hct 33.4 L MCV 92.7 MCH 31.2 MCHC 33.6 RDW 13.3 Plt Count 242 MPV 7.6 Total Counted 100 Seg Neutrophils % 45 Band Neutrophils % 1 Lymphocytes % 41 Monocytes % (Manual) 8 Eosinophils % (Manual) 5 Platelet Estimate Normal RBC Morphology Normal PT 24.6 H INR 2.2 H Sodium 133 Potassium 3.6 Chloride 92 L Carbon Dioxide 30 Anion Gap 11.0 BUN 18 Creatinine 0.9 GFR Calculation 79 Glucose 98 Uric Acid 6.8 Calcium 8.7 Phosphorus 3.8 Magnesium 1.9 Total Bilirubin 0.3 Direct Bilirubin < 0.2 GGT 53 AST 17 ALT 16 Alkaline Phosphatase 100 Lactate Dehydrogenase 150 Total Protein 6.0 Albumin 3.4 Globulin 2.6 Albumin/Globulin Ratio 1.3 Triglycerides 52 Preliminary micro results at discharge 09/22/18 17:15 Blood Culture - Preliminary Blood 09/22/18 17:04 Blood Culture - Preliminary Blood Medical - DS: A/P - Patient/Caregiver Discharge Instructions Activity: as per physical therapy Diet: Low Sodium (2gm) Additional Instructions: Follow-up PCP in 5 days Continue Coumadin dosing based on INR Continue colchicine for additional 3 days followed by as needed for acute gout flares Increase Lasix to 40 twice daily Continue aggressive bowel regimen to prevent constipation Continue fall precautions daily weights measurements and take additional 40 mg Lasix for 3 days if weight gain over 4 pounds over baseline or worsening shortness of breath and call primary care physician if inadequate response to Lasix Continue aggressive PT OT evaluation and treatment at SNF. ST eval and treatment if indicated All meals on chair sitting upright at 90 degrees to prevent aspiration Return to ER if worsening fever chills shortness of breath, diarrhea, bleeding Continue diet and activity as advised Discussed importance of medication adherence Please review medication list with patient prior to discharge Please schedule follow-up with PCP/Providers prior to discharge and provide printouts Prescriptions: Bisacodyl [Dulcolax] 10 mg NE DAILYP PRN #14 supp.rect PRN Reason: Constipation Colchicine [Colcrys] 0.3 mg PO Q48H #10 tablet Docusate Sodium [Colace] 100 mg PO BID #30 capsule Furosemide [Lasix] 40 mg PO BID #60 tablet Sennosides/Docusate Sodium [Senna Plus Tablet] 1 tab PO HS #30 tablet - Follow up Plan Follow up with: Dallas Hancock DO [Primary Care Provider] - Disposition: Home, Self-Care Prognosis: Fair Rehab Potential: Fair I certify that the patient requires SNF services: Yes Overall status at discharge: patient is progressing back to baseline Medical - DS: Qual - VTE Deep Vein Thrombosis/Pulmonary Embolism Present on Admission: No
[2018-09-26] MEDS ORDERED: WARFARIN 7.5 MG TABLET PO ONE (10:00)
[2018-09-26] MEDS ORDERED: WARFARIN 2 MG TABLET PO SCH (10:00)
== END 2018-09-26 11:05 | disposition home or self-care (01) | DRG 291 ==
LOC: ED 15:50 → ICU 19:45 → MEDSUR 09-24 19:58
PROVIDERS: ADMIT Internal Medicine; ATTEND Internal Medicine

== ENCOUNTER 2022-02-04 14:08 | Inpatient (IN) ==
[2022-02-04] MEDS ORDERED: IOPAMIDOL 100 ML BOTTLE IV ONE (14:09)
--- NOTE | 2022-02-04 14:27 | Emergency Department Note ---
HPI General Chief complaint: Trauma Stated complaint: right hip pain, fall, on blood thinners Time Seen by Provider: 02/04/22 14:14 Source: patient and EMS Mode of arrival: EMS Limitations: altered mental status (not oriented to year.) History of Present Illness HPI Narrative: Narrative: 86 yo M w/ h/o CHF, Factor V Leiden on coumadin, epilepsy, CHF, p/w R hip pain s/p fall. Pt reports that he slipped on something and fell onto his R hip. He does not think that he hit his head or neck, and reports that his only pain is over the R hip. It is nonradiating, worse w/ movement. He denies any numbness, tingling, weakness. Related Data Home Medications Medication Instructions Recorded Confirmed warfarin 5 mg tablet (Coumadin) 5 mg PO DAILY 06/14/15 08/01/20 carvedilol 3.125 mg tablet (Coreg) 3.125 mg PO QAC 08/22/17 08/01/20 magnesium oxide 400 mg PO QDAY 09/22/18 08/01/20 spironolactone 25 mg tablet 12.5 mg PO QAM 09/22/18 08/01/20 warfarin 2 mg tablet 2 mg PO Q3D 09/23/18 08/01/20 Previous Rx's Medication Instructions Recorded potassium chloride 10 [facility]Eq 10 [facility] [place] [place] 06/17/15 tablet,extended release levetiracetam 500 mg tablet 500 mg PO BID tab 08/24/17 bisacodyl 10 mg rectal suppository 10 mg WV DAILYP PRN #14 supp.rect 09/26/18 colchicine 0.6 mg capsule 0.3 mg PO Q48H #10 tab 09/26/18 docusate sodium 100 mg capsule 100 mg PO BID #30 cap 09/26/18 furosemide 40 mg tablet 40 mg PO BID #60 tab 09/26/18 sennosides 8.6 mg-docusate sodium 1 tab PO HS #30 tab 09/26/18 50 mg tablet hydrocodone 7.5 mg-acetaminophen 1 tab PO Q4H PRN #30 tab 07/28/20 325 mg tablet Allergies Allergy/AdvReac Type Severity Reaction Status Date / Time atorvastatin AdvReac Intermediate Joint Pain Verified 02/04/22 14:17 Review of Systems ROS ROS Narrative: Narrative: All systems ED: reviewed and negative except as stated. PFS Narrative Patient History Narrative: Narrative: Medical/Surgical/Family History All Active Problems CHF (congestive heart failure) (Acute) Closed fracture of right hip (Acute) Anemia (Acute) Low back pain (Acute) History of seizures (Chronic) History of pulmonary embolus (PE) (Chronic) Factor V Leiden (Chronic) Prostate cancer (Chronic) Chest wall pain (Acute) Back pain (Acute) Compression fracture (Acute) CHF NYHA class III (symptoms with mildly strenuous activities) (Chronic) History of DVT (deep vein thrombosis) (Chronic) Chronic anticoagulation (Chronic) Pneumonia (Acute) ADHF (acute decompensated heart failure) (Acute) Weakness generalized (Acute) Androgen deprivation therapy (Chronic) History of prostate cancer (Chronic) Left bundle branch block (LBBB) (Chronic) Artificial pacemaker (Acute) Congestive heart failure (CHF) (Chronic) Left otitis media (Acute) Medical History ADHF (acute decompensated heart failure) Androgen deprivation therapy Artificial pacemaker CHF NYHA class III (symptoms with mildly strenuous activities) Chronic anticoagulation Congestive heart failure (CHF) Factor V Leiden History of DVT (deep vein thrombosis) History of prostate cancer History of pulmonary embolus (PE) History of seizures Left bundle branch block (LBBB) Low back pain Pneumonia Pneumonia and influenza Prostate cancer Tooth abscess Weakness generalized Surgical History History of appendectomy History of cholecystectomy History of shoulder surgery Family History Mother Heart disease Father Heart disease Social History Smoking Status: Never smoker Alcohol Intake Frequency: holiday/special occasion only Exam Narrative Narrative: Narrative: General Limitations: altered mental status (not oriented to year.) General appearance: Present alert and in no apparent distress Head Head: Present atraumatic and normocephalic Eye Eye: Present normal appearance, PERRL and EOMI ENT ENT: Present normal oropharynx and mucous membranes moist Neck Neck: Present normal inspection; Absent tenderness Chest Chest: Present normal inspection and symmetric chest wall rise Respiratory Respiratory: Present normal lung sounds bilaterally; Absent respiratory distress Cardiovascular Cardiovascular: Present regular rate, normal rhythm, +S1, +S2 and other (2+ B/L radial and DP pulses); Absent systolic murmur or diastolic murmur Adbominal Abdominal: Present soft and normal bowel sounds; Absent distention or tenderness Extremities Extremities: Present other (R hip TTP, pain w/ passive flexion but not w/ external rotation, questionable shortening RLE. LLE unremarkable. R elbow w/ 4x3cm skin tear but intact ROM. Extremities o/w unremarkable.) Neurological Neurological: Present alert and other (oriented to person, place, month but not year (2019 instead of 2021).) Psychiatric Psychiatric: Present normal affect Skin Skin: Present warm (WNL) and dry Course Vital Signs Vital signs: Vital Signs Temperature 97.3 F 02/04/22 14:14 Pulse Rate 64 02/04/22 14:14 Respiratory Rate 18 02/04/22 14:14 Blood Pressure 110/63 02/04/22 14:14 Pulse Oximetry (%) 93 02/04/22 14:14 Temperature 97.3 F 02/04/22 14:14 Pulse Rate 57 L 02/04/22 19:16 Respiratory Rate 21 02/04/22 19:16 Blood Pressure 114/52 02/04/22 19:16 Pulse Oximetry (%) 96 02/04/22 19:16 MDM MDM Narrative Medical decision making narrative: Narrative: 86 yo M w/ h/o CHF, Factor V Leiden on coumadin, epilepsy, CHF, p/w R hip pain s/p fall. DDX - closed head injury, spinal injury, injury to the trunk, extremity injury Pt presented clinically stable, in NAD. Given that he was not clear on the year and was anticoagulated I checked CT head and C spine, both of which were negative. His spine was o/w clinically cleared. He had evidence of a R hip Fx, which was confirmed w/ XR. There was no evidence of thoracic or intra-abd injury or other extremity injury. His labs showed a significant anemia, w/ Hgb 6.7, down from his baseline of 10-11. In speaking w/ his family I learned that during prostate surgery he apparently required 2U PRBC indicating a significant bl eeding propensity. Given that he had a soft BP (but negative shock index), a hip Fx and anemia, I proceeded to order 2U PRBC w/ familys consent. INR was 3.1, thus I ordered PCC and vitamin K. I d/w Dr Ruano w/ ortho who plans to take pt to the OR tomorrow and w/ Dr Hoover. He accepted the pt for admission if we get a CT abd/pelvis w/ contrast to r/o other sources of bleeding. This is pending and will be signed out to the overnight physician. Lab Data Lab results reviewed: Yes I reviewed the patient's lab results. Result diagrams: 02/04/22 15:05 02/04/22 15:05 Labs: Lab Results 02/04/22 02/04/22 02/04/22 Range/Units 15:05 15:05 16:48 WBC 3.2 L (4.5-11.0) K/mcL RBC 2.95 L (4.63-6.08) M/mcL Hgb 6.7 L* (13.7-17.5) g/dL Hct 22.9 L (40.1-51.0) % MCV 77.6 L (80.0-100.0) fL MCH 22.7 L (26.0-34.0) pg MCHC 29.3 L (31.0-36.0) g/dL RDW 15.7 H (11.5-14.5) % Plt Count 266 (140-440) K/mcL MPV 9.3 (7.4-10.4) fL Neut % (Auto) 60.9 (38.0-78.0) % Lymph % (Auto) 25.9 (15.5-49.0) % Hickman % (Auto) 12.3 H (1.0-12.0) % Eos % (Auto) 0.3 (0.0-7.0) % Baso % (Auto) 0.6 (0.0-2.0) % Lymph # (Auto) 0.84 L (1.50-4.80) K/mcL Hickman # (Auto) 0.40 (0.10-0.90) K/mcL Eos # (Auto) 0.01 (0.00-0.70) K/mcL Baso # (Auto) 0.02 (0.00-0.30) K/mcL Absolute Neutrophils 1.97 (1.80-8.00) K/mcL POC PT 35.2 H (11.9-14.5) POC INR 3.1 H (0.8-1.2) Sodium 134 (133-145) mmol/L Potassium 4.3 (3.3-5.1) mmol/L Chloride 98 (96-108) mmol/L Carbon Dioxide 27 (22-30) mmol/L Anion Gap 9.0 (8.0-16.0) BUN 14 (8-23) mg/dL Creatinine 1.0 (0.7-1.2) mg/dL GFR Calculation 67 Glucose 126 H (70-105) mg/dL Calcium 8.6 (8.6-10.4) mg/dL Total Bilirubin 0.5 (0.1-1.0) mg/dL AST 15 (<40) U/L ALT 12 (<40) U/L Alkaline Phosphatase 89 (39-117) U/L Total Protein 5.9 (5.9-8.4) gm/dL Albumin 3.8 (3.2-5.2) gm/dL Globulin 2.1 L (2.2-3.7) gm/dL Albumin/Globulin Ratio 1.8 (1.0-2.3) ED POC Tests ED POC Tests: KALIA - SARS Antigen Negative EKG Data EKG #1: EKG attestation: Yes I reviewed and interpreted this EKG. and Yes There are no EKG findings of acute coronary syndrome EKG results narrative: Paced rate of 60 WV 485, QRS 161, QT 484, QTc 484 No STEMI, negative Sgarbossa Similar to previous EKG Discharge Plan Patient/Caregiver Discharge Instructions Pt seen by TANK WELDER/PA only: No Clinical Impression: Closed fracture of right hip, Congestive heart failure (CHF), Factor V Leiden, Chronic anticoagulation, Anemia Patient Disposition: Xfer As Inpt ([facility]) Condition: Fair Follow up with: Dallas Hancock DO [Primary Care Provider] - Prescriptions: No Action hydrocodone-acetaminophen 7.5-325 mg tablet 1 tab PO Q4H PRN (Reason: pain) Qty: 30 0RF warfarin [Coumadin] 5 MG tablet 5 mg PO DAILY 0RF Label Comments: potassium chloride 10 MEQ tablet 10 meq [facility] [place] Qty: 30 0RF Rx Instructions: to be taken only with Lasix carvedilol [Coreg] 3.125 MG tablet 3.125 mg PO QAMCC 0RF levetiracetam 500 MG tablet 500 mg PO BID 0RF spironolactone 25 MG tablet 12.5 mg PO QAM 0RF magnesium oxide 200 MG tablet 400 mg PO QDAY 0RF warfarin 2 MG tablet 2 mg PO Q3D 0RF Rx Instructions: for a total of 7 mg Q 3 days colchicine 0.6 MG tablet 0.3 mg PO Q48H Qty: 10 0RF Rx Instructions: use fopr 3 days followed by PRN furosemide 40 MG tablet 40 mg PO BID Qty: 60 0RF sennosides-docusate sodium 1 TAB tablet 1 tab PO HS Qty: 30 0RF docusate sodium 100 MG capsule 100 mg PO BID Qty: 30 0RF bisacodyl 10 MG suppository 10 mg WV DAILYP PRN (Reason: Constipation) Qty: 14 0RF Plan of Treatment: On exam patient is seated in bed in no acute distress lungs are equal and clear bilat, heart is normal rate and rhythm. pupils are PEDRO PABLO, mucous membranes are moist. Head, Neck, chest, and left side pelvis are nontender to palpation. At the right upper extremity there is a large skin slip with mild bleeding, both upper extremities are warm, well perfused and neuro intact. Abdomen is protuberant and mildly tender to palpation. At the right side pelvis and hip area there is tenderness to palpation and with any ROM. Both lower extremities are moderately edematous, family in the room endorse that he developed lower extremity edema after blood clots which developed s/p prostatectomy surgery in 2020. He has palpable, bounding dorsalis pedis pulses bilaterally. There is obvious deformity and shortening of the right lower extremity with external rotation. Options were presented to the patient and family (consisting of his and daughter) also in the room, including non-surgical and surgical options. non- surgical consisting of bracing and pain control, carries risks of non-union, increased pain and loss of mobility. Surgical option consisting of right hip open reduction internal fixation via right hip hemiarthroplasty. At this time, ignacio small and his family are interested in surgery pending hospitalist clearance. Plan is for right hip hemiarthroplasty to take place semi-emergently to be performed by Dr. Ruano orthopedic surgeon and Abhi FINE. Surgical risks were explained to the patient and family including but not limi kerry to: pain, bleeding, infection, injury to adjacent structures, need for further surgery, implant failure, stroke risk, cardiac complications, pulmonary complications, DVT, anesthesia reactions and . Patient and his family understand these risks and wish to proceed with surgery.
--- NOTE | 2022-02-04 14:54 | Cat Scan Report ---
CLINICAL INFORMATION: Fall-on Coumadin COMPARISON: 07/28/2014 TECHNIQUE: 2.5 mm helical slices were obtained in the skull base to vertex. Following reconstruction, axial reformatted images were reviewed at bone and parenchymal windows. The exam was performed using radiation dose optimization techniques including, but not limited to, automated exposure control, adjustment of the mA and/or kV according to patient size and use of iterative reconstruction technique. FINDINGS: The ventricles, sulci, fissures, and cisterns are symmetrically enlarged compatible with mild age-related atrophy. No extra-axial fluid collections are identified. Mild patchy chronic ischemic changes, in the deep cerebral white matter, are expected for age. There is no hemorrhage, mass effect, or edema. Bone windows show no osseous abnormality. IMPRESSION: Mild atrophy and chronic ischemic changes in the deep cerebral white matter-expected for age. No acute findings Subtotal opacification left maxillary sinus compatible with severe sinusitis appreciated. Other paranasal sinuses are clear. Interpreted and Authenticated by: Willis Rayo 02/04/22
--- NOTE | 2022-02-04 15:00 | Cat Scan Report ---
CLINICAL INFORMATION: Trauma-fall on Coumadin COMPARISON: 04/03/[address] chest CT 02/08/2021 TECHNIQUE: 0.625 mm helical slices were obtained from the skull base through the superior T2 end plate, and following reconstruction, 2.5 mm sagittal, coronal and axial reformations were then processed. The exam was reviewed at bone and soft tissue windows. The exam was performed using radiation dose optimization techniques including, but not limited to, automated exposure control, adjustment of the mA and/or kV according to patient size and use of iterative reconstruction technique. FINDINGS: The sagittal coronal reformatted images show the cervical spine is anatomically aligned. Minimal T1 mild T2 and moderate T3 compression fractures are unchanged from the prior chest CT. No acute fracture resulting from recent trauma appreciated. Cervical cord is normal in contour and caliber without hemorrhage or other abnormality. No soft tissue abnormality. The C2-3 disc level is normal. At C3-4, moderate broad left-sided disc spur complex and facet arthropathy result in mild central canal and severe left IV foraminal narrowing. At C4-5, moderate broad disc spur complex left-sided asymmetry facet arthropathy results in moderate central canal and severe left IV foraminal narrowing C5-6, a large right paracentral calcified disc protrusion mildly impinges the right cervical cord and there is a smaller left calcified disc protrusion which also mildly impinges the cervical cord. At C6-7, large right-sided calcified disc spur complex results in severe right IV foraminal narrowing and moderate central canal narrowing. C7-T1 disc level shows moderate broad protrusion resulting in moderate central canal and mild IV foraminal narrowing. IMPRESSION: No acute fracture. Mild T1, mild T2 moderate T3 chronic compression fractures.. Significant multilevel degeneration as described. Please correlate with chronic or intermittent upper extremity radiculopathy. Interpreted and Authenticated by: Willis Rayo 02/04/22
[2022-02-04] MEDS ORDERED: KETOROLAC 30 MG/ML VIAL IV ONE (15:20)
[2022-02-04 15:56] LABS: Basophils # (Auto) 0.02 K/mcL (0.00-0.30); Basophils % (Auto) 0.6 % (0.0-2.0); Eosinophils # (Auto) 0.01 K/mcL (0.00-0.70); Eosinophils % (Auto) 0.3 % (0.0-7.0); Hematocrit 22.9 % (40.1-51.0); Hemoglobin 6.7 g/dL (13.7-17.5); Lymphocytes # (Auto) 0.84 K/mcL (1.50-4.80); Lymphocytes % (Auto) 25.9 % (15.5-49.0); Mean Cell Volume 77.6 fL (80.0-100.0); Mean Corpuscular HGB Conc 29.3 g/dL (31.0-36.0); Mean Platelet Volume 9.3 fL (7.4-10.4); Monocytes % (Auto) 12.3 % (1.0-12.0); Neutrophils % (Auto) 60.9 % (38.0-78.0); Platelet Count 266 K/mcL (140-440); RBC 2.95 M/mcL (4.63-6.08); Red Cell Distribution Width 15.7 % (11.5-14.5); WBC 3.2 K/mcL (4.5-11.0)
[2022-02-04 16:07] LABS: ALT/SGPT 12 U/L (<40); AST/SGOT 15 U/L (<40); Albumin 3.8 gm/dL (3.2-5.2); Albumin/Globulin Ratio 1.8 (1.0-2.3); Alkaline Phosphatase 89 U/L (39-117); Bilirubin,Total 0.5 mg/dL (0.1-1.0); Blood Urea Nitrogen 14 mg/dL (8-23); Calcium 8.6 mg/dL (8.6-10.4); Carbon Dioxide 27 mmol/L (22-30); Chloride 98 mmol/L (96-108); Globulin 2.1 gm/dL (2.2-3.7); Glomerular Filtration Rate 67; Glucose 126 mg/dL (70-105)
[2022-02-04] MEDS ORDERED: fentaNYL 100 MCG/2 ML VIAL IV ONE (16:50)
[2022-02-04] MEDS ORDERED: ONDANSETRON 4 MG/2 ML VIAL IV ONE (16:51)
[2022-02-04 16:52] LABS: POC INR 3.1 (0.8-1.2); POC Pro Time 35.2 (11.9-14.5)
[2022-02-04] MEDS ORDERED: PHYTONADIONE 10 MG in 0.9 % SODIUM CHLORIDE 50 ML IV ONE (16:56)
[2022-02-04] MEDS ORDERED: HUM PROTHROMBIN CPLX IV ONE (16:59)
[2022-02-04] MEDS ORDERED: [UNRECOGNIZED DRUG - OTHER] IV ONE (16:59)
[2022-02-04] MEDS ORDERED: 0.9 % SODIUM CHLORIDE 250 ML IV SCH ×2 (17:00→20:15)
[2022-02-04] MEDS ORDERED: PHYTONADIONE 10 MG/ML AMPUL ONE (17:31)
--- NOTE | 2022-02-04 18:30 | Cat Scan Report ---
CLINICAL INFORMATION: Abdomen right hip pain history of fall on anticoagulation COMPARISON: Abdomen and pelvic CT three years prior: 02/27/2019 TECHNIQUE: Following enteric contrast, 80 cc of [id number]-[id number] were injected intravenously, and 60 seconds later, 0.625 mm helical slices were obtained from the mid heart through the subtrochanteric regions. Following reconstruction, 2.5 mm sagittal, coronal and axial reformatted images were processed and reviewed at bone, lung and soft tissue windows. Five minutes later, 0.625 mm helical slices were obtained from the mid heart through the kidneys and viewed at soft tissue windows.The exam was performed using radiation dose optimization techniques including, but not limited to, automated exposure control, adjustment of the mA and/or kV according to patient size and use of iterative reconstruction technique. FINDINGS: The heart is markedly enlarged with asymmetric enlargement of the right ventricle and atrium. Pacemaker and leads in stable satisfactory position. Heart has increased in size in the previous exam. Moderate subsegmental atelectasis seen in both posterior lower lobes. No effusion. Abdominal images show mild fatty change within the liver, but no focal hepatic lesions. There is marked congestion of the intrahepatic IVC and hepatic veins which are also increased in caliber. The gallbladder is surgically absent. Common bile duct is mildly dilated-8 mm compatible post cholecystectomy state. Pancreas shows mild atrophy-particularly in the distal body and tail. 2.4 cm cystic lesion in the pancreatic tail has increased from 1.6 cm on the previous study. There is a 10 mm cyst in the distal pancreatic body which is unchanged. The spleen, both adrenal glands, kidneys and aorta are normal in size configuration and attenuation without focal lesion. There is no free air, free fluid or adenopathy Pelvic images show prostatectomy changes. Urinary bladder is moderately distended. Stomach, small and large bowel show symmetric dilatation compatible with mild ileus. Region of the appendix is normal. Bone windows show an acute transcervical fracture of the right femoral neck with moderate coxa vara angulation and minimal displacement. There is also healing fracture of the right inferior pubic ramus. Moderate degeneration of both SI and hip joints noted. Mild T11, moderate T12 moderate L1 compression fracture new from the CT three years prior. Mild L2-L3 moderate L4 and mild L5 compression fractures are old. IMPRESSION: 1. Acute transcervical fracture of the right femoral neck with mild coxa valga angulation and minimal displacement. 2. Healing fracture right inferior pubic ramus. 3. Marked cardiomegaly with asymmetric enlargement of the right atrium and ventricle typically typically indicative of pulmonary hypertension. This has increased from the previous study. Elevated right heart pressures and resulted in marked enlargement of the intrahepatic IVC and hepatic veins. 4. 2.4 cm cystic lesion in the pancreatic tail increasing from 1.[address] two years prior. 10 mm cystic lesion in the distal pancreatic body is unchanged. These are almost certainly benign cysts. Low-grade IPMN is possible but unlikely given the very slow increase in size over three years. Mild pancreatic atrophy noted 5. Moderate ileus 6. Prostatectomy changes 7. Multiple osteoporotic compression fractures of the lumbar spine as described Interpreted and Authenticated by: Willis Rayo 02/04/22
--- NOTE | 2022-02-04 18:32 | XRay Report ---
CLINICAL INFORMATION: Trauma COMPARISON: 02/20/2013 FINDINGS: Transcervical fracture of the right femoral neck with coxa vera angulation and mild displacement appreciated. Moderate left and mild right hip degeneration and mild bilateral SI degeneration seen as before. Multiple surgical clips present within the pelvis from prostatectomy. Nondisplaced healing fracture right inferior pubic ramus noted. Soft tissues are normal. IMPRESSION: Transcervical fracture right hip with mild coxa vera angulation and minimal displacement Nondisplaced healing fracture right inferior pubic ramus Interpreted and Authenticated by: Willis Rayo 02/04/22
--- NOTE | 2022-02-04 18:35 | Orthopedic Consult Note ---
HPI Data of Consult Consult date: 02/04/22 Primary Care Provider: Dallas Hancock Consult Narrative Patient Information: Note initiated : 02/04/22 at 6:34 pm Service Date, if different from initiated Date: [] Patient: Mike Diaz 86 y/o M admitted on for right hip pain, fall, on blood thinners. Chief Complaint: right hip pain s/p fall [] Chief complaint: right hip pain s/p fall Reason for consult: right hip pain s/p fall cc:: CC: Review of Systems All systems: reviewed and no additional remarkable complaints except as stated PFSH PFSH All Active Problems CHF (congestive heart failure) (Acute) Closed fracture of right hip (Acute) Anemia (Acute) Low back pain (Acute) History of seizures (Chronic) History of pulmonary embolus (PE) (Chronic) Factor V Leiden (Chronic) Prostate cancer (Chronic) Chest wall pain (Acute) Back pain (Acute) Compression fracture (Acute) CHF NYHA class III (symptoms with mildly strenuous activities) (Chronic) History of DVT (deep vein thrombosis) (Chronic) Chronic anticoagulation (Chronic) Pneumonia (Acute) ADHF (acute decompensated heart failure) (Acute) Weakness generalized (Acute) Androgen deprivation therapy (Chronic) History of prostate cancer (Chronic) Left bundle branch block (LBBB) (Chronic) Artificial pacemaker (Acute) Congestive heart failure (CHF) (Chronic) Left otitis media (Acute) Medical History ADHF (acute decompensated heart failure) Androgen deprivation therapy Artificial pacemaker CHF NYHA class III (symptoms with mildly strenuous activities) Chronic anticoagulation Congestive heart failure (CHF) Factor V Leiden History of DVT (deep vein thrombosis) History of prostate cancer History of pulmonary embolus (PE) History of seizures Left bundle branch block (LBBB) Low back pain Pneumonia Pneumonia and influenza Prostate cancer Tooth abscess Weakness generalized Surgical History History of appendectomy History of cholecystectomy History of shoulder surgery Family History Mother Heart disease Father Heart disease Social History marital status: education level: college alcohol intake frequency: holiday/special occasion only MEDS/ALLERGIES Home Medications and Allergies Home Medications Medication Instructions Recorded Confirmed Type warfarin 5 mg tablet (Coumadin) 5 mg PO DAILY 06/14/15 08/01/20 History potassium chloride 10 mEq 10 meq PO [facility] #30 tab 06/17/15 08/01/20 Rx tablet,extended release carvedilol 3.125 mg tablet (Coreg) 3.125 mg PO [facility] 08/22/17 08/01/20 History levetiracetam 500 mg tablet 500 mg PO BID tab 08/24/17 08/01/20 Rx magnesium oxide 400 mg PO QDAY 09/22/18 08/01/20 History spironolactone 25 mg tablet 12.5 mg PO QAM 09/22/18 08/01/20 History warfarin 2 mg tablet 2 mg PO Q3D 09/23/18 08/01/20 History bisacodyl 10 mg rectal suppository 10 mg UT DAILYP PRN #14 supp.rect 09/26/18 08/01/20 Rx colchicine 0.6 mg capsule 0.3 mg PO Q48H #10 tab 09/26/18 08/01/20 Rx docusate sodium 100 mg capsule 100 mg PO BID #30 cap 09/26/18 08/01/20 Rx furosemide 40 mg tablet 40 mg PO BID #60 tab 09/26/18 08/01/20 Rx sennosides 8.6 mg-docusate sodium 1 tab PO HS #30 tab 09/26/18 08/01/20 Rx 50 mg tablet hydrocodone 7.5 mg-acetaminophen 1 tab PO Q4H PRN #30 tab 07/28/20 08/01/20 Rx 325 mg tablet Allergies Allergy/AdvReac Type Severity Reaction Status Date / Time atorvastatin AdvReac Intermediate Joint Pain Verified 02/04/22 14:17 Physical Examination Narrative Narrative: Narrative: A/P Narrative A/P Narrative: Patient is a 86 yo M w/ h/o CHF, Factor V Leiden on coumadin, epilepsy, CHF, p/w R hip pain s/p fall. Pt and family report that he slipped on something and fell onto his R hip. He does not think that he hit his head or neck, and reports that his only pain is over the R hip. It is nonradiating, worse w/ movement. He denies any numbness, tingling, weakness. Imaging obtained at the ED revealed a femoral neck fracture of the right hip. Lab work also revealed severe anemia. Patient was subsequently admitted to hospitalist service for medical treatment and surgical clearance. Dr. Ruano orthopedic surgeon was consulted for treatment options. Plan of Treatment: On exam patient is seated in bed in no acute distress lungs are equal and clear bilat, heart is normal rate and rhythm. pupils are PEDRO PABLO, mucous membranes are moist. Head, Neck, chest, and left side pelvis are nontender to palpation. At the right upper extremity there is a large skin slip with mild bleeding, both upper extremities are warm, well perfused and neuro intact. Abdomen is protuberant and mildly tender to palpation. At the right side pelvis and hip area there is tenderness to palpation and with any ROM. Both lower extremities are moderately edematous, family in the room endorse that he developed lower extremity edema after blood clots which developed s/p prostatectomy surgery in 2020. He has palpable, bounding dorsalis pedis pulses bilaterally. There is obvious deformity and shortening of the right lower extremity with external rotation. Options were presented to the patient and family (consisting of his and daughter) also in the room, including non-surgical and surgical options. non- surgical consisting of bracing and pain control, carries risks of non-union, increased pain and loss of mobility. Surgical option consisting of right hip open reduction internal fixation via right hip hemiarthroplasty. At this time, patient and his family are interested in surgery pending hospitalist clearance. Plan is for right hip hemiarthroplasty to take place semi-emergently to be performed by Dr. Ruano orthopedic surgeon and [facility]. Surgical risks were explained to the patient and family including but not limited to: pain, bleeding, infection, injury to adjacent structures, need for further surgery, implant failure, stroke risk, cardiac complications, pulmonary complications, DVT, anesthesia reactions and . Patient and his family understand these risks and wish to proceed with surgery. Time Spent With Patient Time: Total time spent is greater than 50% in coordination of care (as documented) at patient's floor/unit and/or counseling patient:
--- NOTE | 2022-02-04 18:39 | XRay Report ---
CLINICAL INFORMATION: Trauma COMPARISON: None FINDINGS: Transcervical fracture of the right hip results in coxa angulation and minimal displacement. There is a probable curvilinear fracture over the lateral tibial plateau. This is not well-visualized. Diffuse osteoporosis noted. Moderate patellofemoral and tibiofemoral degeneration noted. Right hip degeneration noted. Diffuse soft tissue swelling noted. IMPRESSION: Transcervical fracture right hip with mild coxa valga angulation and displacement Probable curvilinear fracture of the lateral tibial plateau. If there is point tenderness in this region, consider CT for more specific evaluation. Diffuse osteoporosis Moderate patellofemoral and tibiofemoral degeneration. Mild right hip degeneration Interpreted and Authenticated by: Willis Rayo 02/04/22
--- NOTE | 2022-02-04 18:47 | XRay Report ---
CLINICAL INFORMATION: Trauma COMPARISON: 09/20/2021 TECHNIQUE: Portable FINDINGS: Moderate cardiomegaly is unchanged. Pacemaker and leads are in stable satisfactory position. Mediastinum is normal. Pulmonary vessels are mildly distended, but unchanged. There is no edema. Mild scattered scarring in both mid and lower lungs similar previous study. No infiltrates and no effusions. IMPRESSION: Mild CHF Interpreted and Authenticated by: Willis Rayo 02/04/22
--- NOTE | 2022-02-04 19:44 | Emergency Department Note ---
ED Note Addendum Note Addendum: Updated admitting physician CT results available, will proceed with admission as previously planned
[2022-02-04] MEDS ORDERED: DILTIAZEM 25 MG/5 ML VIAL IV PRN (20:04)
[2022-02-04] MEDS ORDERED: MELATONIN 3 MG TABLET PO PRN (20:04)
[2022-02-04] MEDS ORDERED: hydrALAZINE 20 MG/ML VIAL IV PRN (20:04)
[2022-02-04] MEDS ORDERED: ONDANSETRON 4 MG/2 ML VIAL IV PRN ×2 (20:04)
[2022-02-04] MEDS ORDERED: ALBUTEROL SULFATE 2.5 MG/3 ML NEBULIZER NEB PRN (20:04)
[2022-02-04] MEDS ORDERED: PROMETHAZINE 25 MG/ML VIAL IV PRN (20:04)
[2022-02-04] MEDS ORDERED: QUEtiapine 25 MG TABLET PO PRN (20:04)
[2022-02-04] MEDS ORDERED: BISACODYL 10 MG SUPP.RECT PR PRN (20:04)
[2022-02-04] MEDS ORDERED: traMADol 50 MG TABLET PO PRN (20:04)
[2022-02-04] MEDS ORDERED: SENNOSIDES 1 TABLET PO SCH (21:00)
[2022-02-04 21:48] LABS: Basophils # (Auto) 0.01 K/mcL (0.00-0.30); Basophils % (Auto) 0.2 % (0.0-2.0); Eosinophils # (Auto) 0 K/mcL (0.00-0.70); Eosinophils % (Auto) 0 % (0.0-7.0); Hematocrit 26.2 % (40.1-51.0); Hemoglobin 7.8 g/dL (13.7-17.5); Lymphocytes # (Auto) 0.52 K/mcL (1.50-4.80); Mean Cell Volume 80.6 fL (80.0-100.0); Mean Corpuscular HGB Conc 29.8 g/dL (31.0-36.0); Mean Platelet Volume 9.3 fL (7.4-10.4); Monocytes # (Auto) 0.81 K/mcL (0.10-0.90); Neutrophils % (Auto) 76.8 % (38.0-78.0); Platelet Count 228 K/mcL (140-440); RBC 3.25 M/mcL (4.63-6.08); Red Cell Distribution Width 16.5 % (11.5-14.5); WBC 5.8 K/mcL (4.5-11.0)
[2022-02-04] MEDS ORDERED: CYCLOBENZAPRINE 10 MG TABLET PO PRN (22:52)
--- NOTE | 2022-02-04 22:52 | Internal Med History&Physical ---
HPI History of Present Illness Patient information: Note initiated : 02/04/22 at 10:50 pm Service Date, if different from initiated Date: [] Patient: Mike Diaz 86 y/o M admitted on 02/04/22 for right hip pain, fall, on blood thinners. Chief Complaint: [] History of present illness: Mr. Diaz is a 86 year old M 80-year-old gentleman with a history of CHF, factor V Leyden mutation on Coumadin, epilepsy, gout was brought to the ER following a fall and hit on his right hip. According to the patient has been very tired for the last 5 to 6 days and he slipped and fell onto his right hip this afternoon. Patient and denied hitting the head or hitting the spine area. Patient has externally rotated right leg with significant pain and cramping. He denied any numbness or tingling. Patient was evaluated and found to have a right femur fracture communicated with the orthopedic surgeon and planning for surgery. 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 Updated orthopedic surgeon and planning to proceed with the surgery. He also found to have a hemoglobin of 6.7 from 11 earlier this year. denied any melena or hematochezia. No previous history of GI bleed. Patient underwent CT scan of the abdomen and pelvis with contrast to look for any retroperitoneal bleed or intra-abdominal bleed which was negative. Review of systems Patient was slow to respond unable to give us a detailed review of system Generally he denied any chest pain abdominal pain but reported abdominal distention Slow to respond as per family Complaining of leg cramps and pain Physical exam Head: No bruises, normal-appearing nontraumatic Eyes: normal appearance, no scleral icterus. Neck: full ROM Respiratory: Crackles more on the right side occasional wheezing Cardiovascular systolic [id number] heard GI/Abdominal: Abdomen distended nontender possible ventral hernia Extremities: full range of motion, nontender. Neurological: Oriented x2 slow to respond intermittent pleasant confusion Psychiatric: No hallucinations or delusion Skin: warm, multiple bruises in bilateral upper extremities and lower extremity PFSH PFSH All Active Problems CHF (congestive heart failure) (Acute) Closed fracture of right hip (Acute) Anemia (Acute) Low back pain (Acute) History of seizures (Chronic) History of pulmonary embolus (PE) (Chronic) Factor V Leiden (Chronic) Prostate cancer (Chronic) Chest wall pain (Acute) Back pain (Acute) Compression fracture (Acute) CHF NYHA class III (symptoms with mildly strenuous activities) (Chronic) History of DVT (deep vein thrombosis) (Chronic) Chronic anticoagulation (Chronic) Pneumonia (Acute) ADHF (acute decompensated heart failure) (Acute) Weakness generalized (Acute) Androgen deprivation therapy (Chronic) History of prostate cancer (Chronic) Left bundle branch block (LBBB) (Chronic) Artificial pacemaker (Acute) Congestive heart failure (CHF) (Chronic) Left otitis media (Acute) Medical History ADHF (acute decompensated heart failure) Androgen deprivation therapy Artificial pacemaker CHF NYHA class III (symptoms with mildly strenuous activities) Chronic anticoagulation Congestive heart failure (CHF) Factor V Leiden History of DVT (deep vein thrombosis) History of prostate cancer History of pulmonary embolus (PE) History of seizures Left bundle branch block (LBBB) Low back pain Pneumonia Pneumonia and influenza Prostate cancer Tooth abscess Weakness generalized Surgical History History of appendectomy History of cholecystectomy History of shoulder surgery Family History Mother Heart disease Father Heart disease Social History marital status: education level: college alcohol intake frequency: holiday/special occasion only MEDS/ALLERGIES Home Medications and Allergies Home Medications Medication Instructions Recorded Confirmed Type potassium chloride 10 mEq 10 meq PO [facility] #30 tab 06/17/15 02/04/22 Rx tablet,extended release carvedilol 3.125 mg tablet (Coreg) 3.125 mg PO [facility] 08/22/17 02/04/22 History levetiracetam 500 mg tablet 500 mg PO BID tab 08/24/17 02/04/22 Rx magnesium oxide 400 mg PO QDAY 09/22/18 02/04/22 History docusate sodium 100 mg capsule 240 mg PO DAILY 02/04/22 02/04/22 History spironolactone 25 mg tablet 0.5 tab PO QDAY 02/04/22 02/04/22 History warfarin 5 mg tablet 5 tab PO DAILY 02/04/22 02/04/22 History Allergies Allergy/AdvReac Type Severity Reaction Status Date / Time atorvastatin AdvReac Intermediate Joint Pain Verified 02/04/22 14:17 EXAM Constitutional Vitals: Temp Pulse Resp BP Pulse Ox 97.3 F 64 17 133/63 97 02/04/22 14:14 02/04/22 20:01 02/04/22 20:53 02/04/22 20:46 02/04/22 20:53 DATA Data Completed and Pending Labs: Labs from last 24 hours 02/04/22 02/04/22 02/04/22 21:07 21:06 20:18 WBC 5.8 RBC 3.25 L Hgb 7.8 L Hct 26.2 L MCV 80.6 MCH 24.0 L MCHC 29.8 L RDW 16.5 H Plt Count 228 MPV 9.3 Neut % (Auto) 76.8 Lymph % (Auto) 9.0 L [place] % (Auto) 14.0 H Eos % (Auto) 0 Baso % (Auto) 0.2 Lymph # (Auto) 0.52 L [place] # (Auto) 0.81 Eos # (Auto) 0 Baso # (Auto) 0.01 Absolute Neutrophils 4.46 POC PT POC INR APTT 39.1 H Sodium Potassium Chloride Carbon Dioxide Anion Gap BUN Creatinine GFR Calculation Glucose Calcium Total Bilirubin AST ALT Alkaline Phosphatase Troponin T 0.02 Total Protein Albumin Globulin Albumin/Globulin Ratio 02/04/22 02/04/22 02/04/22 16:48 15:05 15:05 WBC 3.2 L RBC 2.95 L Hgb 6.7 L* Hct 22.9 L MCV 77.6 L MCH 22.7 L MCHC 29.3 L RDW 15.7 H Plt Count 266 MPV 9.3 Neut % (Auto) 60.9 Lymph % (Auto) 25.9 [place] % (Auto) 12.3 H Eos % (Auto) 0.3 Baso % (Auto) 0.6 Lymph # (Auto) 0.84 L [place] # (Auto) 0.40 Eos # (Auto) 0.01 Baso # (Auto) 0.02 Absolute Neutrophils 1.97 POC PT 35.2 H POC INR 3.1 H APTT Sodium 134 Potassium 4.3 Chloride 98 Carbon Dioxide 27 Anion Gap 9.0 BUN 14 Creatinine 1.0 GFR Calculation 67 Glucose 126 H Calcium 8.6 Total Bilirubin 0.5 AST 15 ALT 12 Alkaline Phosphatase 89 Troponin T Total Protein 5.9 Albumin 3.8 Globulin 2.1 L Albumin/Globulin Ratio 1.8 A/P Narrative Plan of Treatment: Right femur fracture Pain control-with IV Dilaudid 0.25 every 2 hours as needed We will use Flexeril for muscle spasm Will avoid fentanyl due to delirium Dr. Combs orthopedic surgeon aware and planning for right hip arthroplasty Patient is a high risk person for moderate risk surgery Patient's INR was 3.1 in the ER and given PCC and vitamin K and will recheck INR in the morning Patient is a very high risk person needs to have his hemoglobin more than 9 and INR less than 1.4 for the surgery Surgical risk assessment -high risk person for moderate risk surgery Risk factors-factor V Leyden mutation, possible active bleeding, history of seizure, history of CHF, underlying dementia, anticoagulated, Patient has a 15 to 20% chance of perioperative cardiac event based on revised cardiac risk index He is also high risk for bleeding and thromboembolic phenomenon based on previous history of bleeding and clotting Plan Needs 3 units of blood transfusion hemoglobin needs to be more than 9 before proceeding with surgery INR needs to be less than 1.4 before surgery He has 50% chance of postoperative delirium-avoid insomnia, pain control, avoid urinary retention risk for aspiration-aspiration precautions Probable blood loss anemia Patient presented with a hemoglobin of 6.7 and in September 2021 his hemoglobin was around 11 Patient is anticoagulated for factor V Leyden mutation and history of thromboembolism His INR was 3.1 and given PCC and vitamin K in the ER No history of melena no history suggestive of GI bleed CT abdomen pelvis did not show any retroperitoneal bleed Stool guaiac test ordered We will hold anticoagulation because of active GI bleed needs to consider bridging heparin postoperatively if his bleeding stable Anticoagulated Factor V Leyden mutation Patient is a high risk person for thromboembolic phenomenon postoperatively and intraoperatively Orthopedic surgeon aware and discussed with the ED physician We need to consider bridging therapy postoperatively once his hemoglobin is stable Possible aspiration Family reported witnessed episode of aspiration No obvious evidence of pneumonia We will monitor and consider starting antibiotics Acute delirium Probably due to narcotics Patient was confused and slow to respond during my encounter According to the family this is new Patient received IV fentanyl in the ER Plan About insomnia Avoid renal retention Avoid constipation Will minimize the use of narcotics Chronic CHF Recent echocardiogram showing ejection fraction of 55% moderate pulmonary hypertension Will resume his home medications History of seizure Resume his Keppra History of gout next DVT prophylaxis-SCDs and holding anticoagulation due to active bleeding and potentially surgery tomorrow CODE STATUS-DNR/DNI verified with the patient, daughter and Time Spent With Patient Time: Total time spent is greater than 50% in coordination of care (as documented) at patient's floor/unit and/or counseling patient: Total time spent with greater than 50% in coordination of care (as documented) at patient's floor/unit and/or counseling patient:: Greater than 70 minutes Critical Care Time: No
[2022-02-04] MEDS ORDERED: HYDROcodone/APAP 5/325MG TABLET PO PRN (22:53)
[2022-02-04] MEDS: levETIRAcetam 500 MG TABLET PO SCH (23:43)
[2022-02-04] MEDS: DOCUSATE SODIUM 100 MG CAPSULE PO SCH (23:44)
[2022-02-04] MEDS: HYDROmorphone 0.5 MG/0.5 ML SYRINGE IV PRN (23:48)
[2022-02-04] MEDS: 0.9 % SODIUM CHLORIDE 10 ML SYRINGE IV SCH ×2 (23:48)
[2022-02-04] MEDS ORDERED: HYDROmorphone 0.5 MG/0.5 ML SYRINGE ONE (23:50)
[2022-02-04] MEDS: FAMOTIDINE/PF 20 MG/2 ML VIAL IV SCH (23:53)
[2022-02-05] MEDS: ACETAMINOPHEN 325 MG TABLET PO PRN ×2 (01:07→07:07)
[2022-02-05] MEDS: HYDROmorphone 0.5 MG/0.5 ML SYRINGE IV PRN ×3 (03:30→16:45)
[2022-02-05] MEDS ORDERED: HYDROmorphone 0.5 MG/0.5 ML SYRINGE ONE (03:38)
[2022-02-05] MEDS: 0.9 % SODIUM CHLORIDE 10 ML SYRINGE IV SCH ×6 (05:45→21:37)
[2022-02-05 06:39] LABS: Basophils # (Auto) 0.03 K/mcL (0.00-0.30); Basophils % (Auto) 0.6 % (0.0-2.0); Eosinophils # (Auto) 0.03 K/mcL (0.00-0.70); Eosinophils % (Auto) 0.6 % (0.0-7.0); Hematocrit 31.7 % (40.1-51.0); Hemoglobin 9.8 g/dL (13.7-17.5); Lymphocytes % (Auto) 11.4 % (15.5-49.0); Mean Cell Volume 80.1 fL (80.0-100.0); Mean Corpuscular HGB Conc 30.9 g/dL (31.0-36.0); Mean Platelet Volume 9.3 fL (7.4-10.4); Monocytes # (Auto) 0.92 K/mcL (0.10-0.90); Monocytes % (Auto) 17.4 % (1.0-12.0); Platelet Count 201 K/mcL (140-440); RBC 3.96 M/mcL (4.63-6.08); Red Cell Distribution Width 15.9 % (11.5-14.5); WBC 5.3 K/mcL (4.5-11.0)
[2022-02-05 06:52] LABS: INR 1.2 (0.9-1.1); Prothrombin Time 15.7 sec (11.9-14.5)
[2022-02-05 07:04] LABS: ALT/SGPT 13 U/L (<40); AST/SGOT 17 U/L (<40); Albumin 3.5 gm/dL (3.2-5.2); Albumin/Globulin Ratio 1.6 (1.0-2.3); Alkaline Phosphatase 87 U/L (39-117); Bilirubin,Total 1.5 mg/dL (0.1-1.0); Blood Urea Nitrogen 18 mg/dL (8-23); Calcium 8.6 mg/dL (8.6-10.4); Carbon Dioxide 25 mmol/L (22-30); Chloride 98 mmol/L (96-108); Globulin 2.2 gm/dL (2.2-3.7); Glomerular Filtration Rate 67; Glucose 126 mg/dL (70-105)
[2022-02-05] MEDS: CARVEDILOL 3.125 MG TABLET PO SCH (07:07)
[2022-02-05] MEDS: DOCUSATE SODIUM 100 MG CAPSULE PO SCH ×2 (07:07→21:33)
[2022-02-05] MEDS: FAMOTIDINE/PF 20 MG/2 ML VIAL IV SCH ×2 (07:07→21:27)
[2022-02-05] MEDS: levETIRAcetam 500 MG TABLET PO SCH ×2 (07:11→21:32)
--- NOTE | 2022-02-05 10:39 | Internal Med Progress Note ---
SUBJECTIVE Subjective Patient information: Note initiated : 02/05/22 at 10:37 am Service Date, if different from initiated Date: [] Patient: Mike Diaz 86 y/o M admitted on 02/04/22 for right hip pain, fall, on blood thinners. 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 According to the patient has been very tired for the last 5 to 6 days and he slipped and fell onto his right hip this afternoon. Patient and denied hitting the head or hitting the spine area. Patient has externally rotated right leg with significant pain and cramping. He denied any numbness or tingling. Patient was evaluated and found to have a right femur fracture communicated with the orthopedic surgeon and planning for surgery. 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 Updated orthopedic surgeon and planning to proceed with the surgery. He also found to have a hemoglobin of 6.7 from 11 earlier this year. denied any melena or hematochezia. No previous history of GI bleed. Patient underwent CT scan of the abdomen and pelvis with contrast to look for any retroperitoneal bleed or intra-abdominal bleed which was negative. 02/05 Patient is slightly drowsy this morning His blood pressure is around 100 Hemoglobin 9.6 No hypoxia His crackles improved His INR is 1.2 Orthopedic team planning for surgery and eval pending We will continue monitoring his Review of systems Patient is more drowsy than yesterday No respiratory distress Abdomen distended soft Physical exam Head: No bruises, normal-appearing nontraumatic Eyes: normal appearance, no scleral icterus. Neck: full ROM Respiratory: Crackles improved occasional wheezing Ahlgwxh-H2-Q0 systolic murmur GI/Abdominal: Abdomen distended nontender possible ventral hernia Extremities: full range of motion, nontender. Neurological: Oriented x2 slow to respond intermittent pleasant confusion Psychiatric: No hallucinations or delusion Skin: warm, multiple bruises in bilateral upper extremities and lower extremity Constitutional Vitals: Vital Signs Temp Pulse Resp BP Pulse Ox 99.3 F H 59 L 18 100/59 95 02/05/22 10:24 02/05/22 10:24 02/05/22 10:24 02/05/22 10:01 02/05/22 10:24 Period Temp Pulse Resp BP Sys/Jamison Pulse Ox Last 24 Hr 97.3 F-100.1 F 43-113 13-26 96-133/45-71 89-100 Intake and Output 02/04/22 02/05/22 02/05/22 21:59 05:59 13:59 Intake Total 670 1325 Output Total 451 175 Balance 670 874 -175 Weight 80.286 kg Intake & Output: Intake & Output 02/04/22 02/05/22 02/05/22 21:59 05:59 13:59 Intake Total 670 1325 Output Total 451 175 Balance 670 874 -175 Weight 80.286 kg Intake: IV 95 250 Sodium Chloride 0.9% 250 ml @ 44 250 20 mls/hr IV .[id number] [facility] Rx#: [id number] Aquamephy[place] 10 mg In Sodium 51 Chloride 0.9% 50 ml @ 50 mls/hr IV ONCE ONE Rx#:[id number] Oral 500 Blood Product 575 575 Output: Urine Catheter Amount 450 175 # of times incontinent of urine 1 Other: Urine Appearance Clear Clear Uretheral (Malone) Clear Clear Urine Color Dark Yellow Bright Yellow Uretheral (Malone) Pale Bright Yellow Urine Odor Normal # Voids 1 OBJ DATA Labs CBC & Chem 7: 02/05/22 05:48 02/05/22 05:49 Labs: Abnormal Lab Results 02/05/22 02/05/22 02/05/22 05:49 05:49 05:48 WBC RBC 3.96 L Hgb 9.8 L Hct 31.7 L MCV MCH 24.7 L MCHC 30.9 L RDW 15.9 H Lymph % (Auto) 11.4 L [place] % (Auto) 17.4 H Lymph # (Auto) 0.60 L [place] # (Auto) 0.92 H POC PT PT 15.7 H POC INR INR 1.2 H APTT Sodium 132 L Glucose 126 H Magnesium 2.8 H Total Bilirubin 1.5 H Total Protein 5.7 L Globulin 02/05/22 02/04/22 02/04/22 03:16 21:07 20:18 WBC RBC 3.25 L Hgb 9.6 L 7.8 L Hct 26.2 L MCV MCH 24.0 L MCHC 29.8 L RDW 16.5 H Lymph % (Auto) 9.0 L [place] % (Auto) 14.0 H Lymph # (Auto) 0.52 L [place] # (Auto) POC PT PT POC INR INR APTT 39.1 H Sodium Glucose Magnesium Total Bilirubin Total Protein Globulin 02/04/22 02/04/22 02/04/22 16:48 15:05 15:05 WBC 3.2 L RBC 2.95 L Hgb 6.7 L* Hct 22.9 L MCV 77.6 L MCH 22.7 L MCHC 29.3 L RDW 15.7 H Lymph % (Auto) [place] % (Auto) 12.3 H Lymph # (Auto) 0.84 L [place] # (Auto) POC PT 35.2 H PT POC INR 3.1 H INR APTT Sodium Glucose 126 H Magnesium Total Bilirubin Total Protein Globulin 2.1 L Meds: Medications Acetaminophen (Acetaminophen 325 Mg Tablet) 650 mg PO Q4-6HP PRN; Protocol PRN Reason: Per Pain Protocol/Fever > 101 Last Admin: 02/05/22 07:07 Dose: 650 mg Documented by: Hydrocodone Bitart/Acetaminophen (Hydrocodone/Apap 5/325mg Tablet) 1 tab PO Q4HP PRN; Protocol PRN Reason: Per Pain Protocol Albuterol Sulfate (Albuterol Sulfate 2.5 Mg/3 Ml Nebulizer) 2.5 mg NEB Q4HRT PRN PRN Reason: wheezing Bisacodyl (Bisacodyl 10 Mg Supp.Rect) 10 mg [place] Q2-3DAYS PRN PRN Reason: Constipation Carvedilol (Carvedilol 3.125 Mg Tablet) 3.125 mg PO [facility] Last Admin: 02/05/22 07:07 Dose: 3.125 mg Documented by: Cyclobenzaprine HCl (Cyclobenzaprine 10 Mg Tablet) 5 mg PO TIDP PRN PRN Reason: Muscle Spasm Diltiazem HCl (Diltiazem 25 Mg/5 Ml Vial) 10 mg IV Q4HP PRN PRN Reason: Tachyarrhythmias Docusate Sodium (Docusate Sodium 100 Mg Capsule) 100 mg PO BID [facility] Last Admin: 02/05/22 07:07 Dose: 100 mg Documented by: Famotidine (Famotidine/Pf 20 Mg/2 Ml Vial) 20 mg IV Q12 [facility] Last Admin: 02/05/22 07:07 Dose: 20 mg Documented by: Hydralazine HCl (Hydralazine 20 Mg/Ml Vial) 10 mg IV Q4-6HP PRN PRN Reason: Hypertension Hydromorphone HCl (Hydromorphone 0.5 Mg/0.5 Ml Syringe) 0.25 mg IV Q2HP PRN; Protocol PRN Reason: Per Pain Protocol Last Admin: 02/05/22 03:30 Dose: 0.25 mg Documented by: Levetiracetam (Levetiracetam 500 Mg Tablet) 500 mg PO BID [facility] Last Admin: 02/05/22 07:11 Dose: 500 mg Documented by: Melatonin (Melatonin 3 Mg Tablet) 3 mg PO HSP PRN PRN Reason: Insomnia Ondansetron HCl (Ondansetron 4 Mg/2 Ml Vial) 4 mg IV Q6HP PRN PRN Reason: Nausea And Vomiting Promethazine HCl (Promethazine 25 Mg/Ml Vial) 12.5 mg IV Q4-6HP PRN; Protocol PRN Reason: Nausea And Vomiting Quetiapine Fumarate (Quetiapine 25 Mg Tablet) 12.5 mg PO HSP PRN PRN Reason: iNSOMNIA-2nd option Senna (Sennosides 1 Tablet) 2 tab PO HS [facility] Last Admin: 02/04/22 23:47 Dose: Not Given Documented by: Sodium Chloride (0.9 % Sodium Chloride 10 Ml Syringe) 10 ml IV Q8 [facility] Last Admin: 02/05/22 05:45 Dose: 10 ml Documented by: Sodium Chloride (0.9 % Sodium Chloride 10 Ml Syringe) 10 ml IV Q8 [facility] Last Admin: 02/05/22 05:45 Dose: Not Given Documented by: Tramadol HCl (Tramadol 50 Mg Tablet) 50 mg PO Q4-6HP PRN; Protocol PRN Reason: Pain A/P Narrative Plan of Treatment: Right femur fracture Pain control-with IV Dilaudid 0.25 every 2 hours as needed We will use Flexeril for muscle spasm Will avoid fentanyl due to delirium Dr. Combs orthopedic surgeon aware and planning for right hip arthroplasty Patient is a high risk person for moderate risk surgery Patient's INR was 3.1 in the ER and given PCC and vitamin K and will recheck INR this morning is one-point Surgical risk assessment -high risk person for moderate risk surgery Risk factors-factor V Leyden mutation, possible active bleeding, history of seizure, history of CHF, underlying dementia, anticoagulated, Patient has a 15 to 20% chance of perioperative cardiac event based on revised cardiac risk index He is also high risk for bleeding and thromboembolic phenomenon based on previous history of bleeding and clotting Plan Needs 3 units of blood transfusion hemoglobin needs to be more than 9 before proceeding with surgery INR needs to be less than 1.4 before surgery He has 50% chance of postoperative delirium-avoid insomnia, pain control, avoid urinary retention risk for aspiration-aspiration precautions Educated the family about the potential 20% risk of cardiac complications, risk of aspiration, risk of delirium, risk of ileus Probable blood loss anemia Patient presented with a hemoglobin of 6.7 and in September 2021 his hemoglobin was around 11 Patient received 3 unit of blood transfusion hemoglobin 9.6 now Patient is anticoagulated for factor V Leyden mutation and history of thromboembolism His INR was 3.1 and given PCC and vitamin K in the ER and INR 1.2 No history of melena no history suggestive of GI bleed CT abdomen pelvis did not show any retroperitoneal bleed Stool guaiac test ordered We will hold anticoagulation because of active GI bleed needs to consider bridging heparin postoperatively if his bleeding stable Anticoagulated Factor V Leyden mutation Patient is a high risk person for thromboembolic phenomenon postoperatively and intraoperatively Orthopedic surgeon aware and discussed with the ED physician We need to consider bridging therapy postoperatively once his hemoglobin is stable Possible aspiration No hypoxia Witnessed episode of aspiration at home No pneumonia on imaging His crackles improved on examination Acute delirium Probably due to narcotics Patient was confused and slow to respond during my encounter According to the family this is new Patient received IV fentanyl in the ER Plan About insomnia Avoid renal retention Avoid constipation Will minimize the use of narcotics Chronic CHF Recent echocardiogram showing ejection fraction of 55% moderate pulmonary hypertension Will resume his home medications History of seizure Resume his Keppra History of gout next DVT prophylaxis-SCDs and holding anticoagulation due to active bleeding and potentially surgery tomorrow CODE STATUS-DNR/DNI verified with the patient, daughter and Time Spent With Patient Time: Total time spent is greater than 50% in coordination of care (as documented) at patient's floor/unit and/or counseling patient: QUALITY VTE Deep Vein Thrombosis/Pulmonary Embolism Present on Admission: No
[2022-02-05 12:44] LABS: Appearance,Urine CLEAR (Clear); Bilirubin,Urine Negative (Negative); Color,Urine YELLOW; Culture Indicated,Urine No; Glucose,Urine (UA) Negative (Negative); Ketones,Urine 5 mg/dL (Negative); Leukocyte Esterase,Urine 25 /uL (Negative); Nitrate,Urine Negative (Negative); Protein,Urine 30 mg/dL (Negative); Specific Gravity,Urine 1.043 (1.000-1.035); Urine RBC 36 /hpf (0-3); Urine Squamous Epithelial Cell 0 /hpf (0-4); Urine WBC 1 /hpf (0-4); Urobilinogen,Urine Negative
[2022-02-05] MEDS ORDERED: MAGNESIUM HYDROXIDE 30 ML ORAL.SUSP PO PRN ×2 (15:09→18:31)
[2022-02-05] MEDS ORDERED: POLYETHYLENE GLYCOL 3350 17 GM PACKET PO PRN ×2 (15:09→18:31)
[2022-02-05] MEDS ORDERED: ceFAZolin 2 GM in DEXTROSE 5% IN WATER 50 ML IV SCH ×2 (17:00→18:45)
[2022-02-05] MEDS ORDERED: DEXAMETHASONE 10 MG/ML VIAL ONE (17:05)
[2022-02-05] MEDS ORDERED: GLYCOPYRROLATE 0.2 MG/ML VIAL IV ONE (17:05)
[2022-02-05] MEDS ORDERED: fentaNYL 100 MCG/2 ML VIAL IV ONE (17:05)
[2022-02-05] MEDS ORDERED: PHENYLephrine 1 MG/10 ML SYRINGE (ANEST) ONE (17:05)
[2022-02-05] MEDS ORDERED: ONDANSETRON 4 MG/2 ML VIAL ONE (17:05)
[2022-02-05] MEDS ORDERED: KETAMINE 50 MG/ML Syringe (ANEST) IV ONE (17:05)
[2022-02-05] MEDS ORDERED: EPINEPHrine 1 MG/ML AMPUL ONE (17:05)
[2022-02-05] MEDS ORDERED: PROPOFOL 200 MG/20 ML VIAL IV ONE (17:05)
[2022-02-05] MEDS ORDERED: ePHEDrine 50 MG/5 ML SYRINGE (ANEST) IV ONE (17:05)
[2022-02-05] MEDS ORDERED: TRANEXAMIC ACID 1,000 MG/10 ML VIAL ONE (17:05)
[2022-02-05] MEDS ORDERED: LIDOCAINE HCL/PF 100 MG/5 ML SYRINGE IV ONE (17:05)
[2022-02-05] MEDS ORDERED: MAGNESIUM SULFATE 2 GM/50 ML BAG IV ONE (17:05)
[2022-02-05] MEDS ORDERED: FLUMAZENIL 0.1 MG/ML ML IV PRN (18:17)
[2022-02-05] MEDS ORDERED: fentaNYL 100 MCG/2 ML VIAL IV PRN (18:17)
[2022-02-05] MEDS ORDERED: METHOCARBAMOL 1,000 MG/10 ML VIAL IV PRN (18:17)
[2022-02-05] MEDS ORDERED: METOPROLOL TARTRATE 5 MG/5 ML VIAL IV PRN (18:17)
[2022-02-05] MEDS ORDERED: ACETAMINOPHEN 1,000 MG/100 ML BAG IV ONE (18:17)
[2022-02-05] MEDS ORDERED: ONDANSETRON 4 MG/2 ML VIAL IV PRN (18:17)
[2022-02-05] MEDS ORDERED: IPRATROPIUM/ALBUTEROL 3 ML AMPUL.NEB NEB PRN (18:17)
[2022-02-05] MEDS ORDERED: LACTATED RINGERS 250 ML IV PRN (18:17)
[2022-02-05] MEDS ORDERED: LABETALOL 5 MG/ML ML IV PRN (18:17)
[2022-02-05] MEDS ORDERED: NALOXONE HCL 0.4 MG/ML VIAL IV PRN (18:17)
--- NOTE | 2022-02-05 18:27 | Discharge Plan ---
DC Instructions-General Patient Instructions Dressing Care: May shower in 2 days Discharge Plan Patient/Caregiver Discharge Instructions Activity: ambulate only with your walker Diet: Regular Diet Prescriptions: No Action potassium chloride 10 MEQ tablet 10 meq PO QAMCC Qty: 30 0RF Label Comments: Pt takes one extended released 10 mg tablet daily Rx Instructions: to be taken only with Lasix carvedilol [Coreg] 3.125 MG tablet 3.125 mg PO QAMCC 0RF Label Comments: Pt takes in the morning. levetiracetam 500 MG tablet 500 mg PO BID 0RF Label Comments: Pt takes 500 mg tablet, 1 tab 2 times daily magnesium oxide 200 MG tablet 400 mg PO QDAY 0RF spironolactone 25 mg tablet 0.5 tab PO QDAY 0RF Label Comments: Pt takes 1/2 tab of a Spironolactone 25 mg tablet daily every am warfarin 5 mg tablet 5 tab PO DAILY 0RF Label Comments: Pt takes Warfarin sodium 5 mg tablet on a 5,5,7.5 dosage cycle which repeats on the fourth day according to the spouse. Rx Instructions: 5,5,7.5 docusate sodium 100 MG capsule 240 mg PO DAILY 0RF Label Comments: Pt takes daily otc colace torsemide 20 mg Tablet 20 mg PO BID 0RF Label Comments: Pt takes,"Torsemide a 20 mg tab 2 times daily" according to the pt's spouse. polyethylene glycol 3350 [Miralax] 17 gram Powder In Packet 17 g PO QDAY PRN (Reason: Constipation) 0RF magnesium hydroxide [Milk of Magnesia] 400 mg/5 mL Suspension 400 mg PO QDAY PRN (Reason: Constipation) 0RF Label Comments: Pt takes, "Milk of Magnesia 400 mg/5 ml as needed in place of Miralax." diphenhydramine-acetaminophen [Tylenol PM Extra Strength] 25-500 mg Tablet 1 tab PO DAILY PRN (Reason: Insomnia) 0RF Label Comments: Pt takes, "Tylenol PM extra strength 500 mg, 1 tablet at 9 pm daily," at home. Follow Up Plan Follow up with: Dallas Hancock DO [Primary Care Provider] - Willis Ruano MD [Physician] - Patient Disposition: Xfer SNF Plan of Treatment: Right femur fracture Pain control-with IV Dilaudid 0.25 every 2 hours as needed We will use Flexeril for muscle spasm Will avoid fentanyl due to delirium Dr. Combs orthopedic surgeon aware and planning for right hip arthroplasty Patient is a high risk person for moderate risk surgery Patient's INR was 3.1 in the ER and given PCC and vitamin K and will recheck INR this morning is one-point Surgical risk assessment -high risk person for moderate risk surgery Risk factors-factor V Leyden mutation, possible active bleeding, history of seizure, history of CHF, underlying dementia, anticoagulated, Patient has a 15 to 20% chance of perioperative cardiac event based on revised cardiac risk index He is also high risk for bleeding and thromboembolic phenomenon based on previous history of bleeding and clotting Plan Needs 3 units of blood transfusion hemoglobin needs to be more than 9 before proceeding with surgery INR needs to be less than 1.4 before surgery He has 50% chance of postoperative delirium-avoid insomnia, pain control, avoid urinary retention risk for aspiration-aspiration precautions Educated the family about the potential 20% risk of cardiac complications, risk of aspiration, risk of delirium, risk of ileus Probable blood loss anemia Patient presented with a hemoglobin of 6.7 and in September 2021 his hemoglobin was around 11 Patient received 3 unit of blood transfusion hemoglobin 9.6 now Patient is anticoagulated for factor V Leyden mutation and history of thromboembolism His INR was 3.1 and given PCC and vitamin K in the ER and INR 1.2 No history of melena no history suggestive of GI bleed CT abdomen pelvis did not show any retroperitoneal bleed Stool guaiac test ordered We will hold anticoagulation because of active GI bleed needs to consider bridging heparin postoperatively if his bleeding stable Anticoagulated Factor V Leyden mutation Patient is a high risk person for thromboembolic phenomenon postoperatively and intraoperatively Orthopedic surgeon aware and discussed with the ED physician We need to consider bridging therapy postoperatively once his hemoglobin is stable Possible aspiration No hypoxia Witnessed episode of aspiration at home No pneumonia on imaging His crackles improved on examination Acute delirium Probably due to narcotics Patient was confused and slow to respond during my encounter According to the family this is new Patient received IV fentanyl in the ER Plan About insomnia Avoid renal retention Avoid constipation Will minimize the use of narcotics Chronic CHF Recent echocardiogram showing ejection fraction of 55% moderate pulmonary hypertension Will resume his home medications History of seizure Resume his Keppra History of gout next DVT prophylaxis-SCDs and holding anticoagulation due to active bleeding and potentially surgery tomorrow CODE STATUS-DNR/DNI verified with the patient, daughter and Prognosis: Fair Rehab Potential: Fair I certify that the patient requires SNF services: Yes Overall status at discharge: patient is progressing back to baseline Discharge Orders: Discharge Order (Routine); Ordered 02/07/22 Ordered By: Willis Ruano Discharge Comment: cc: right hip femoral neck fx s/p hemiarthroplasty
--- NOTE | 2022-02-05 18:27 | General Surgery Procedure Note ---
Date of procedure: Note initiated : 02/05/22 at 6:26 pm Service Date, if different from initiated Date: [] Pre-op diagnosis: right hip femoral neck fracture Post-op diagnosis: same Procedure: right hip hemiarthroplasty Anesthesia: RAKEL Surgeon: Willis Ruano Service Rig Operator: Dudley Davison Estimated blood loss: 150 Pathology: none sent Condition: stable Disposition: PACU
[2022-02-05] MEDS ORDERED: LACTATED RINGERS 1,000 ML IV SCH (18:30)
[2022-02-05] MEDS ORDERED: ONDANSETRON 4 MG ODT TABLET SL PRN (18:31)
[2022-02-05] MEDS ORDERED: FLEETS ADULT ENEMA PR PRN (18:31)
[2022-02-05] MEDS ORDERED: BISACODYL 10 MG SUPP.RECT PR PRN (18:31)
[2022-02-05 18:45] LABS: Basophils # (Auto) 0.03 K/mcL (0.00-0.30); Basophils % (Auto) 0.5 % (0.0-2.0); Eosinophils # (Auto) 0.03 K/mcL (0.00-0.70); Eosinophils % (Auto) 0.5 % (0.0-7.0); Hematocrit 31.9 % (40.1-51.0); Hemoglobin 9.8 g/dL (13.7-17.5); Lymphocytes # (Auto) 0.67 K/mcL (1.50-4.80); Mean Corpuscular HGB Conc 30.7 g/dL (31.0-36.0); Mean Platelet Volume 9.6 fL (7.4-10.4); Monocytes # (Auto) 0.95 K/mcL (0.10-0.90); Monocytes % (Auto) 15.6 % (1.0-12.0); Neutrophils % (Auto) 72.1 % (38.0-78.0); Platelet Count 192 K/mcL (140-440); RBC 3.94 M/mcL (4.63-6.08); Red Cell Distribution Width 15.9 % (11.5-14.5); WBC 6.1 K/mcL (4.5-11.0)
[2022-02-05] MEDS ORDERED: WARFARIN 5 MG TABLET PO SCH (21:00)
[2022-02-05] MEDS ORDERED: diphenhydrAMINE 25 MG CAPSULE PO PRN (21:00)
[2022-02-05 21:02] LABS: Basophils # (Auto) 0.03 K/mcL (0.00-0.30); Basophils % (Auto) 0.4 % (0.0-2.0); Eosinophils # (Auto) 0.01 K/mcL (0.00-0.70); Eosinophils % (Auto) 0.1 % (0.0-7.0); Hematocrit 34.7 % (40.1-51.0); Hemoglobin 10.3 g/dL (13.7-17.5); Lymphocytes # (Auto) 0.49 K/mcL (1.50-4.80); Lymphocytes % (Auto) 6.1 % (15.5-49.0); Mean Cell Volume 82.4 fL (80.0-100.0); Mean Corpuscular HGB Conc 29.7 g/dL (31.0-36.0); Mean Platelet Volume 9.8 fL (7.4-10.4); Monocytes # (Auto) 0.52 K/mcL (0.10-0.90); Monocytes % (Auto) 6.5 % (1.0-12.0); Neutrophils % (Auto) 86.5 % (38.0-78.0); Platelet Count 179 K/mcL (140-440); RBC 4.21 M/mcL (4.63-6.08); Red Cell Distribution Width 16.1 % (11.5-14.5)
[2022-02-05] MEDS: SENNOSIDES 1 TABLET PO SCH (21:33)
[2022-02-06] MEDS: ceFAZolin 1 GM VIAL IV SCH ×2 (00:08→08:40)
[2022-02-06] MEDS: ACETAMINOPHEN 325 MG TABLET PO PRN (01:06)
[2022-02-06] MEDS: HYDROmorphone 0.5 MG/0.5 ML SYRINGE IV PRN ×2 (03:22→21:09)
[2022-02-06 03:46] LABS: Basophils # (Auto) 0 K/mcL (0.00-0.30); Basophils % (Auto) 0 % (0.0-2.0); Eosinophils # (Auto) 0 K/mcL (0.00-0.70); Eosinophils % (Auto) 0 % (0.0-7.0); Hematocrit 32.5 % (40.1-51.0); Hemoglobin 9.7 g/dL (13.7-17.5); Lymphocytes # (Auto) 0.35 K/mcL (1.50-4.80); Lymphocytes % (Auto) 6.1 % (15.5-49.0); Mean Cell Volume 82.5 fL (80.0-100.0); Mean Corpuscular HGB Conc 29.8 g/dL (31.0-36.0); Mean Platelet Volume 9.5 fL (7.4-10.4); Monocytes # (Auto) 0.36 K/mcL (0.10-0.90); Monocytes % (Auto) 6.3 % (1.0-12.0); Neutrophils % (Auto) 86.9 % (38.0-78.0); Platelet Count 170 K/mcL (140-440); RBC 3.94 M/mcL (4.63-6.08); Red Cell Distribution Width 16.2 % (11.5-14.5); WBC 5.7 K/mcL (4.5-11.0)
[2022-02-06] MEDS: 0.9 % SODIUM CHLORIDE 10 ML SYRINGE IV SCH ×3 (05:56→21:23)
[2022-02-06 06:30] LABS: Basophils # (Auto) 0.01 K/mcL (0.00-0.30); Basophils % (Auto) 0.2 % (0.0-2.0); Eosinophils # (Auto) 0 K/mcL (0.00-0.70); Eosinophils % (Auto) 0 % (0.0-7.0); Hematocrit 32.3 % (40.1-51.0); Hemoglobin 9.5 g/dL (13.7-17.5); Lymphocytes # (Auto) 0.41 K/mcL (1.50-4.80); Lymphocytes % (Auto) 6.6 % (15.5-49.0); Mean Cell Volume 82.8 fL (80.0-100.0); Mean Corpuscular HGB Conc 29.4 g/dL (31.0-36.0); Monocytes # (Auto) 0.62 K/mcL (0.10-0.90); Neutrophils % (Auto) 82.7 % (38.0-78.0); Platelet Count 163 K/mcL (140-440); Red Cell Distribution Width 16.3 % (11.5-14.5); WBC 6.2 K/mcL (4.5-11.0)
[2022-02-06 06:38] LABS: INR 1.2 (0.9-1.1); Prothrombin Time 15.5 sec (11.9-14.5)
[2022-02-06 06:54] LABS: ALT/SGPT 15 U/L (<40); AST/SGOT 22 U/L (<40); Albumin 3.5 gm/dL (3.2-5.2); Albumin/Globulin Ratio 1.5 (1.0-2.3); Alkaline Phosphatase 87 U/L (39-117); Bilirubin,Total 0.6 mg/dL (0.1-1.0); Blood Urea Nitrogen 26 mg/dL (8-23); Calcium 8.7 mg/dL (8.6-10.4); Carbon Dioxide 24 mmol/L (22-30); Chloride 97 mmol/L (96-108); Globulin 2.3 gm/dL (2.2-3.7); Glomerular Filtration Rate 54; Glucose 172 mg/dL (70-105)
--- NOTE | 2022-02-06 06:55 | Orthopedic Progress Note ---
SUBJECTIVE Subjective Patient information: Note initiated : 02/06/22 at 6:47 am Service Date, if different from initiated Date: [] Patient: Mike Diaz 86 y/o M admitted on 02/04/22 for right hip pain, fall, on blood thinners. Chief Complaint: [s/p right hip hemiarthroplasty] Pertinent ROS: 10 points reviewed and are negative except where mentioned Constitutional Vitals: Vital Signs Temp Pulse Resp BP Pulse Ox 98.7 F 59 L 16 94/56 97 02/06/22 06:01 02/06/22 06:01 02/06/22 06:01 02/06/22 06:01 02/06/22 06:01 Period Temp Pulse Resp BP Sys/Jamison Pulse Ox Last 24 Hr 97.0 F-99.8 F 54-85 10-24 73-135/53-87 84-100 Intake and Output 02/05/22 02/06/22 02/06/22 21:59 05:59 13:59 Intake Total 1650 100 Output Total 210 180 Balance 1440 -80 Weight 184 lb 1.6 oz Intake & Output: Intake & Output 02/05/22 02/06/22 02/06/22 21:59 05:59 13:59 Intake Total 1650 100 Output Total 210 180 Balance 1440 -80 Weight 184 lb 1.6 oz Intake: IV 50 100 Ancef 2 gm In Dextrose 5% in 50 Water 50 ml @ 100 mls/hr IV [facility] Rx#:[id number] IV - Manual Only 1600 Output: Urine Catheter Amount 110 180 Estimated Blood Loss 100 Other: Urine Appearance Clear Clear Uretheral (Malone) Clear Urine Color Dark Yellow Dark Yellow Uretheral ([place]) Dark Yellow Urine Odor Normal OBJ DATA Labs CBC & Chem 7: 02/06/22 05:36 02/05/22 05:49 Labs: Abnormal Lab Results 02/06/22 02/06/22 02/06/22 05:37 05:36 02:16 WBC RBC 3.90 L 3.94 L Hgb 9.5 L 9.7 L Hct 32.3 L 32.5 L MCV MCH 24.4 L 24.6 L MCHC 29.4 L 29.8 L RDW 16.3 H 16.2 H Immature Gran % (Auto) 0.7 H Neut % (Auto) 82.7 H 86.9 H Lymph % (Auto) 6.6 L 6.1 L [place] % (Auto) Lymph # (Auto) 0.41 L 0.35 L [place] # (Auto) POC PT PT 15.5 H POC INR INR 1.2 H APTT Sodium Glucose Magnesium Total Bilirubin Total Protein Globulin Urine Protein Urine Ketones Ur Leukocyte Esterase Urine RBC 02/05/22 02/05/22 02/05/22 20:11 14:17 11:56 WBC RBC 4.21 L 3.94 L Hgb 10.3 L 9.8 L Hct 34.7 L 31.9 L MCV MCH 24.5 L 24.9 L MCHC 29.7 L 30.7 L RDW 16.1 H 15.9 H Immature Gran % (Auto) Neut % (Auto) 86.5 H Lymph % (Auto) 6.1 L 11.0 L [place] % (Auto) 15.6 H Lymph # (Auto) 0.49 L 0.67 L [place] # (Auto) 0.95 H POC PT PT POC INR INR APTT Sodium Glucose Magnesium Total Bilirubin Total Protein Globulin Urine Protein 30 A Urine Ketones 5 A Ur Leukocyte Esterase 25 A Urine RBC 36 H 02/05/22 02/05/22 02/05/22 05:49 05:49 05:48 WBC RBC 3.96 L Hgb 9.8 L Hct 31.7 L MCV MCH 24.7 L MCHC 30.9 L RDW 15.9 H Immature Gran % (Auto) Neut % (Auto) Lymph % (Auto) 11.4 L [place] % (Auto) 17.4 H Lymph # (Auto) 0.60 L [place] # (Auto) 0.92 H POC PT PT 15.7 H POC INR INR 1.2 H APTT Sodium 132 L Glucose 126 H Magnesium 2.8 H Total Bilirubin 1.5 H Total Protein 5.7 L Globulin Urine Protein Urine Ketones Ur Leukocyte Esterase Urine RBC 02/05/22 02/04/22 02/04/22 03:16 21:07 20:18 WBC RBC 3.25 L Hgb 9.6 L 7.8 L Hct 26.2 L MCV MCH 24.0 L MCHC 29.8 L RDW 16.5 H Immature Gran % (Auto) Neut % (Auto) Lymph % (Auto) 9.0 L [place] % (Auto) 14.0 H Lymph # (Auto) 0.52 L [place] # (Auto) POC PT PT POC INR INR APTT 39.1 H Sodium Glucose Magnesium Total Bilirubin Total Protein Globulin Urine Protein Urine Ketones Ur Leukocyte Esterase Urine RBC 02/04/22 02/04/22 02/04/22 16:48 15:05 15:05 WBC 3.2 L RBC 2.95 L Hgb 6.7 L* Hct 22.9 L MCV 77.6 L MCH 22.7 L MCHC 29.3 L RDW 15.7 H Immature Gran % (Auto) Neut % (Auto) Lymph % (Auto) [place] % (Auto) 12.3 H Lymph # (Auto) 0.84 L [place] # (Auto) POC PT 35.2 H PT POC INR 3.1 H INR APTT Sodium Glucose 126 H Magnesium Total Bilirubin Total Protein Globulin 2.1 L Urine Protein Urine Ketones Ur Leukocyte Esterase Urine RBC Meds: Medications Acetaminophen (Acetaminophen 325 Mg Tablet) 650 mg PO Q4-6HP PRN; Protocol PRN Reason: Per Pain Protocol/Fever > 101 Last Admin: 02/06/22 01:06 Dose: 650 mg Documented by: Hydrocodone Bitart/Acetaminophen (Hydrocodone/Apap 5/325mg Tablet) 0 tab PO Q4HP PRN; Protocol PRN Reason: Per Pain Protocol Albuterol Sulfate (Albuterol Sulfate 2.5 Mg/3 Ml Nebulizer) 2.5 mg NEB Q4HRT PRN PRN Reason: wheezing Bisacodyl (Bisacodyl 10 Mg Supp.Rect) 10 mg [place] Q2-3DAYS PRN PRN Reason: Constipation Carvedilol (Carvedilol 3.125 Mg Tablet) 3.125 mg PO [facility] Last Admin: 02/05/22 07:07 Dose: 3.125 mg Documented by: Cefazolin Sodium (Cefazolin 1 Gm Vial) 2 gm IV Q8H [facility] Stop: 02/06/22 08:01 Last Admin: 02/06/22 00:08 Dose: 2 gm Documented by: Cyclobenzaprine HCl (Cyclobenzaprine 10 Mg Tablet) 5 mg PO TIDP PRN PRN Reason: Muscle Spasm Diltiazem HCl (Diltiazem 25 Mg/5 Ml Vial) 10 mg IV Q4HP PRN PRN Reason: Tachyarrhythmias Diphenhydramine HCl (Diphenhydramine 25 Mg Capsule) 25 mg PO HSP PRN PRN Reason: Insomnia Last Admin: 02/06/22 00:16 Dose: 25 mg Documented by: Docusate Sodium (Docusate Sodium 100 Mg Capsule) 100 mg PO BID [facility] Last Admin: 02/05/22 21:33 Dose: 100 mg Documented by: Famotidine (Famotidine/Pf 20 Mg/2 Ml Vial) 20 mg IV Q12 [facility] Last Admin: 02/05/22 21:27 Dose: 20 mg Documented by: Hydralazine HCl (Hydralazine 20 Mg/Ml Vial) 10 mg IV Q4-6HP PRN PRN Reason: Hypertension Hydromorphone HCl (Hydromorphone 0.5 Mg/0.5 Ml Syringe) 0.25 mg IV Q2HP PRN; Protocol PRN Reason: Per Pain Protocol Last Admin: 02/06/22 03:22 Dose: 0.25 mg Documented by: Levetiracetam (Levetiracetam 500 Mg Tablet) 500 mg PO BID [facility] Last Admin: 02/05/22 21:32 Dose: 500 mg Documented by: Magnesium Hydroxide (Magnesium Hydroxide 30 Ml Oral.Susp) 30 ml PO BIDP PRN PRN Reason: Constipation Melatonin (Melatonin 3 Mg Tablet) 3 mg PO HSP PRN PRN Reason: Insomnia Morphine Sulfate (Morphine 4 Mg/Ml Vial) 0 mg IV Q1HP PRN; Protocol PRN Reason: Per Pain Protocol Ondansetron HCl (Ondansetron 4 Mg Odt Tablet) 4 mg SL Q4HP PRN; Protocol PRN Reason: Nausea And Vomiting Polyethylene Glycol (Polyethylene Glycol 3350 17 Gm Packet) 17 gm PO DAILYP PRN PRN Reason: Constipation Promethazine HCl (Promethazine 25 Mg/Ml Vial) 12.5 mg IV Q4-6HP PRN; Protocol PRN Reason: Nausea And Vomiting Quetiapine Fumarate (Quetiapine 25 Mg Tablet) 12.5 mg PO HSP PRN PRN Reason: iNSOMNIA-2nd option Senna (Sennosides 1 Tablet) [address] [facility] Last Admin: 02/05/22 21:33 Dose: 2 tab Documented by: Sodium Biphosphate/Sodium Phosphate (Fleets Adult Enema) 1 dose ND Q3-4DAYS PRN PRN Reason: Constipation Sodium Chloride (0.9 % Sodium Chloride 10 Ml Syringe) 10 ml IV Q8 [facility] Last Admin: 02/06/22 05:56 Dose: 10 ml Documented by: Tramadol HCl (Tramadol 50 Mg Tablet) 50 mg PO Q4-6HP PRN; Protocol PRN Reason: Pain Last Admin: 02/06/22 00:09 Dose: 50 mg Documented by: Warfarin Sodium (Warfarin Per Pharmacy) 1 order PO DAILY@1400 [facility] Last Admin: 02/05/22 21:33 Dose: Not Given Documented by: A/P Narrative Plan of Treatment: patient seen and examined this am. awake alert conversant endorses some expected post op pain but feels it is well managed dressing CDI, both lower extremities are warm, well perfused, neuro intact Has not yet mobilized with PT. WBAT w/ walker / PT for assistance PT/ OT pain control Plan is for expected discharge in 3-5 days likely to rehab w/ follow up @ [facility] in 10-14 days Time Spent With Patient Time: Total time spent is greater than 50% in coordination of care (as documented) at patient's floor/unit and/or counseling patient:
--- NOTE | 2022-02-06 07:39 | XRay Report ---
HISTORY: Postop right hip replacement FINDINGS: There is a well-positioned right hip prosthesis. There is no fracture or abnormal soft tissue calcification around the joint. Severe atherosclerotic disease is present in the left side of the pelvis and left thigh. There are numerous surgical clips in the lower pelvis bilaterally. IMPRESSION: Well-positioned right hip prosthesis Interpreted and Authenticated by: Nomi Caballero 02/06/22
[2022-02-06] MEDS: HYDROcodone/APAP 5/325MG TABLET PO PRN ×3 (07:55→12:41)
--- NOTE | 2022-02-06 07:55 | Operative Note ---
DATE OF OPERATION: 02/05/2022 DATE OF PROCEDURE: 02/05/2022 PREOPERATIVE DIAGNOSIS: Femoral neck fracture, right hip. POSTOPERATIVE DIAGNOSIS: Femoral neck fracture, right hip. PROCEDURE: Right hip hemiarthroplasty. SURGEON: Мария Ruano MD HVAC MAINTENANCE TECHNICIAN SURGEON: Abhi Davison PA-C. This provider's expertise and technical skill were required throughout the case. The RODY assisted with preoperative coordination, intraoperative retraction, wound closure, and dressing and splint application, as well as postoperative documentation and care coordination. ANESTHESIA: Spinal with LMA assist. ESTIMATED BLOOD LOSS: 150 mL COMPLICATIONS: None noted. SPECIMENS REMOVED: None DRAINS: None IMPLANTS: A [place] antibiotic Simplex bone cement, tobramycin x2; DePuy [place] femoral stem size 6, basic cemented; DePuy modular Alexi fractured head hip ball 58 mm; DePuy modular [place] tapered spacer +0; DePuy [place] femoral stem taper basic cemented size 6. INDICATIONS: The patient fell and was unable to ambulate. Radiographs have confirmed a displaced femoral neck fracture. The patient was admitted to the hospital and underwent medical clearance. After a long discussion about treatment options, the patient elected to proceed with a hip hemiarthroplasty. The risks and benefits were discussed with the patient in detail including, but not limited to, the risks of anesthesia, problems with the heart or lungs related to anesthesia, infection, compromise or injury to the nerves and blood vessels, deep venous thrombosis, pulmonary embolism, pneumonia, continued pain after surgery, worsening pain or symptoms after surgery, swelling, loss of motion, instability, leg length discrepancy, and need for repeat surgery. DESCRIPTION OF PROCEDURE: The patient was seen in preanesthesia waiting room where all questions were answered and the correct side and site were identified and marked. The patient was then brought to the operating room and administered the anesthetic, tranexamic acid, and given preoperative antibiotics. A timeout was then called. The patient was placed in the lateral decubitus position with all prominences well padded using the [place] frame and the extremity was prepped and draped in the usual sterile fashion. A standard posterior approach was made. We dissected through the skin and subcutaneous tissue to the deep fascia. The deep fascia was split in line with the incision and a [place] retractor was placed. We exposed, tagged, and incised the short external rotators and piriformis tendon and retracted them posteriorly to help protect the sciatic nerve which was palpated throughout the case. We then performed a T-capsulotomy and tagged the capsule edges. The hip was then dislocated and a femoral neck osteotomy was performed to the pre-surgical templated level off the lesser trochanter. The head was removed and sized. The acetabulum was inspected and did not have a significant degree of osteoarthritis. All bone and fracture debris was removed. Our attention was now turned to the femur. We placed retractors for visualization, internally rotated the femur, and established intramedullary access. We incrementally broached our stem to a stable platform medial, lateral, and rotationally with the appropriate version. We then performed a calcar reaming off the broach. Trials were then placed and optimized for leg length, soft tissue tension, and stability. Best stability, length, and offset characteristics were obtained with these sizes. We removed all trials and impacted the femoral stem to its broached location using a fourth-generation cementing technique insert only if cemented implant described in implants section and placed the head. Final reduction was performed. Again, good stability, leg length, and offset characteristics were noted. We irrigated with three liters of antibiotic saline. We closed the capsule with #2 FiberWire. We closed the fascia with a combination of #1 Strata-fix and #0 Vicryl. We closed the subcutaneous tissue and skin in layers out to susan on the skin. A sterile pressure dressing and abduction wedge was applied. All needle and sponge counts were correct. The patient was transferred to the recovery room in stable condition. MIS:[email or web address] Job ID: [id number] Doc ID: [id number] Мария Ruano MD
[2022-02-06] MEDS: DOCUSATE SODIUM 100 MG CAPSULE PO SCH ×3 (08:38→21:00)
[2022-02-06] MEDS: levETIRAcetam 500 MG TABLET PO SCH ×2 (08:38→20:15)
[2022-02-06] MEDS: CARVEDILOL 3.125 MG TABLET PO SCH (08:38)
[2022-02-06] MEDS: FAMOTIDINE/PF 20 MG/2 ML VIAL IV SCH ×2 (08:38→20:16)
[2022-02-06] MEDS ORDERED: WARFARIN 5 MG TABLET PO SCH ×2 (09:00→14:00)
--- NOTE | 2022-02-06 10:37 | Internal Med Progress Note ---
SUBJECTIVE Subjective Patient information: Note initiated : 02/06/22 at 10:27 am Service Date, if different from initiated Date: [] Patient: Mike Diaz 86 y/o M admitted on 02/04/22 for right hip pain, fall, on blood thinners. 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 According to the patient has been very tired for the last 5 to 6 days and he slipped and fell onto his right hip this afternoon. Patient and denied hitting the head or hitting the spine area. Patient has externally rotated right leg with significant pain and cramping. He denied any numbness or tingling. Patient was evaluated and found to have a right femur fracture communicated with the orthopedic surgeon and planning for surgery. 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 Updated orthopedic surgeon and planning to proceed with the surgery. He also found to have a hemoglobin of 6.7 from 11 earlier this year. denied any melena or hematochezia. No previous history of GI bleed. Patient underwent CT scan of the abdomen and pelvis with contrast to look for any retroperitoneal bleed or intra-abdominal bleed which was negative. 02/05 Patient is slightly drowsy this morning His blood pressure is around 100 Hemoglobin 9.6 No hypoxia His crackles improved His INR is 1.2 Orthopedic team planning for surgery and eval pending We will continue monitoring his 02/06: Status post right hip Danny arthroplasty by orthopedic surgeons Dr. Ruano, with a blood loss about 150 cc, no major complications, and patient tolerated the surgery well. No bowel movement overnight since the surgery. Patient is currently complaining of 7 out of 10 right hip sharp constant pain. He denies any constipations or abdominal distention's. He is currently on 1 L of oxygen's. Restart Coumadin as lonnie-surgical prophylaxis. Tramadol, [place], morphine, Dilaudid, or available for pain control given severity. CBC daily to trend H&H. Continue Pepcid. Colace, senna, MiraLAX, milk of magnesia available for constipation. Pending physical therapy evaluations for placement pending. Constitutional Vitals: Vital Signs Temp Pulse Resp BP Pulse Ox 37.1 C 60 19 108/74 94 02/06/22 08:01 02/06/22 10:08 02/06/22 10:08 02/06/22 10:01 02/06/22 10:08 Period Temp Pulse Resp BP Sys/Jamison Pulse Ox Last 24 Hr 36.1 C-37.7 C 54-85 10-29 73-135/53-87 84-100 Intake and Output 02/05/22 02/06/22 02/06/22 21:59 05:59 13:59 Intake Total 1650 100 Output Total 210 180 15 Balance 1440 -80 -15 Weight 83.506 kg Intake & Output: Intake & Output 02/05/22 02/06/22 02/06/22 21:59 05:59 13:59 Intake Total 1650 100 Output Total 210 180 15 Balance 1440 -80 -15 Weight 83.506 kg Intake: IV 50 100 Ancef 2 gm In Dextrose 5% in 50 Water 50 ml @ 100 mls/hr IV PREOP [facility] Rx#:[id number] IV - Manual Only 1600 Output: Urine Catheter Amount 110 180 15 Estimated Blood Loss 100 Other: Urine Appearance Clear Clear Clear Uretheral ([place]) Clear Clear Urine Color Dark Yellow Dark Yellow Bright Yellow Uretheral ([place]) Dark Yellow Pale Urine Odor Normal Head Head exam: Present atraumatic and normal inspection Eye Eye exam: Present normal appearance ENT ENT exam: Present mucous membranes moist, normal exam and normal external ear exam Additional comments: Nasal cannula in place Neck Neck exam: Present normal inspection Respiratory Respiratory exam: Present normal respiratory exam Cardiovascular Cardiovascular exam: Present normal rate and rhythm Additional comments: pacemaker in place GI/Abdominal GI/Abdominal exam: Present hypoactive bowel sounds Additional comments: [place] catheter in place Extremities Exam Extremities exam: Present tenderness; Absent full ROM or normal inspection Additional comments: Right lateral hip covered by surgical dressing Back Exam Back exam: Present normal inspection Neurological Exam Neurological exam: Present alert and oriented X3 Skin Skin exam: Present intact and warm OBJ DATA Labs CBC & Chem 7: 02/06/22 05:36 02/06/22 05:37 Labs: Abnormal Lab Results 02/06/22 02/06/22 02/06/22 05:37 05:37 05:36 WBC RBC 3.90 L Hgb 9.5 L Hct 32.3 L MCV MCH 24.4 L MCHC 29.4 L RDW 16.3 H Immature Gran % (Auto) Neut % (Auto) 82.7 H Lymph % (Auto) 6.6 L [place] % (Auto) Lymph # (Auto) 0.41 L [place] # (Auto) POC PT PT 15.5 H POC INR INR 1.2 H APTT Sodium BUN 26 H Glucose 172 H Magnesium 3.1 H Total Bilirubin Total Protein 5.8 L Globulin Urine Protein Urine Ketones Ur Leukocyte Esterase Urine RBC 02/06/22 02/05/22 02/05/22 02:16 20:11 14:17 WBC RBC 3.94 L 4.21 L 3.94 L Hgb 9.7 L 10.3 L 9.8 L Hct 32.5 L 34.7 L 31.9 L MCV MCH 24.6 L 24.5 L 24.9 L MCHC 29.8 L 29.7 L 30.7 L RDW 16.2 H 16.1 H 15.9 H Immature Gran % (Auto) 0.7 H Neut % (Auto) 86.9 H 86.5 H Lymph % (Auto) 6.1 L 6.1 L 11.0 L [place] % (Auto) 15.6 H Lymph # (Auto) 0.35 L 0.49 L 0.67 L [place] # (Auto) 0.95 H POC PT PT POC INR INR APTT Sodium BUN Glucose Magnesium Total Bilirubin Total Protein Globulin Urine Protein Urine Ketones Ur Leukocyte Esterase Urine RBC 02/05/22 02/05/22 02/05/22 11:56 05:49 05:49 WBC RBC Hgb Hct MCV MCH MCHC RDW Immature Gran % (Auto) Neut % (Auto) Lymph % (Auto) [place] % (Auto) Lymph # (Auto) [place] # (Auto) POC PT PT 15.7 H POC INR INR 1.2 H APTT Sodium 132 L BUN Glucose 126 H Magnesium 2.8 H Total Bilirubin 1.5 H Total Protein 5.7 L Globulin Urine Protein 30 A Urine Ketones 5 A Ur Leukocyte Esterase 25 A Urine RBC 36 H 02/05/22 02/05/22 02/04/22 05:48 03:16 21:07 WBC RBC 3.96 L 3.25 L Hgb 9.8 L 9.6 L 7.8 L Hct 31.7 L 26.2 L MCV MCH 24.7 L 24.0 L MCHC 30.9 L 29.8 L RDW 15.9 H 16.5 H Immature Gran % (Auto) Neut % (Auto) Lymph % (Auto) 11.4 L 9.0 L [place] % (Auto) 17.4 H 14.0 H Lymph # (Auto) 0.60 L 0.52 L [place] # (Auto) 0.92 H POC PT PT POC INR INR APTT Sodium BUN Glucose Magnesium Total Bilirubin Total Protein Globulin Urine Protein Urine Ketones Ur Leukocyte Esterase Urine RBC 02/04/22 02/04/22 02/04/22 20:18 16:48 15:05 WBC RBC Hgb Hct MCV MCH MCHC RDW Immature Gran % (Auto) Neut % (Auto) Lymph % (Auto) [place] % (Auto) Lymph # (Auto) [place] # (Auto) POC PT 35.2 H PT POC INR 3.1 H INR APTT 39.1 H Sodium BUN Glucose 126 H Magnesium Total Bilirubin Total Protein Globulin 2.1 L Urine Protein Urine Ketones Ur Leukocyte Esterase Urine RBC 02/04/22 15:05 WBC 3.2 L RBC 2.95 L Hgb 6.7 L* Hct 22.9 L MCV 77.6 L MCH 22.7 L MCHC 29.3 L RDW 15.7 H Immature Gran % (Auto) Neut % (Auto) Lymph % (Auto) [place] % (Auto) 12.3 H Lymph # (Auto) 0.84 L [place] # (Auto) POC PT PT POC INR INR APTT Sodium BUN Glucose Magnesium Total Bilirubin Total Protein Globulin Urine Protein Urine Ketones Ur Leukocyte Esterase Urine RBC Meds: Medications Acetaminophen (Acetaminophen 325 Mg Tablet) 650 mg PO Q4-6HP PRN; Protocol PRN Reason: Per Pain Protocol/Fever > 101 Last Admin: 02/06/22 01:06 Dose: 650 mg Documented by: Hydrocodone Bitart/Acetaminophen (Hydrocodone/Apap 5/325mg Tablet) 0 tab PO Q4HP PRN; Protocol PRN Reason: Per Pain Protocol Last Admin: 02/06/22 08:46 Dose: 1 tab Documented by: Albuterol Sulfate (Albuterol Sulfate 2.5 Mg/3 Ml Nebulizer) 2.5 mg NEB Q4HRT PRN PRN Reason: wheezing Bisacodyl (Bisacodyl 10 Mg Supp.Rect) 10 mg IN Q2-3DAYS PRN PRN Reason: Constipation Carvedilol (Carvedilol 3.125 Mg Tablet) 3.125 mg PO [facility] Last Admin: 02/06/22 08:38 Dose: 3.125 mg Documented by: Cyclobenzaprine HCl (Cyclobenzaprine 10 Mg Tablet) 5 mg PO TIDP PRN PRN Reason: Muscle Spasm Diltiazem HCl (Diltiazem 25 Mg/5 Ml Vial) 10 mg IV Q4HP PRN PRN Reason: Tachyarrhythmias Diphenhydramine HCl (Diphenhydramine 25 Mg Capsule) 25 mg PO HSP PRN PRN Reason: Insomnia Last Admin: 02/06/22 00:16 Dose: 25 mg Documented by: Docusate Sodium (Docusate Sodium 100 Mg Capsule) 240 mg PO BID [facility] Famotidine (Famotidine/Pf 20 Mg/2 Ml Vial) 20 mg IV Q12 [facility] Last Admin: 02/06/22 08:38 Dose: 20 mg Documented by: Hydralazine HCl (Hydralazine 20 Mg/Ml Vial) 10 mg IV Q4-6HP PRN PRN Reason: Hypertension Hydromorphone HCl (Hydromorphone 0.5 Mg/0.5 Ml Syringe) 0.25 mg IV Q2HP PRN; Protocol PRN Reason: Per Pain Protocol Last Admin: 02/06/22 03:22 Dose: 0.25 mg Documented by: Levetiracetam (Levetiracetam 500 Mg Tablet) 500 mg PO BID [facility] Last Admin: 02/06/22 08:38 Dose: 500 mg Documented by: Magnesium Hydroxide (Magnesium Hydroxide 30 Ml Oral.Susp) 30 ml PO BIDP PRN PRN Reason: Constipation Melatonin (Melatonin 3 Mg Tablet) 3 mg PO HSP PRN PRN Reason: Insomnia Morphine Sulfate (Morphine 4 Mg/Ml Vial) 0 mg IV Q1HP PRN; Protocol PRN Reason: Per Pain Protocol Ondansetron HCl (Ondansetron 4 Mg Odt Tablet) 4 mg SL Q4HP PRN; Protocol PRN Reason: Nausea And Vomiting Polyethylene Glycol (Polyethylene Glycol 3350 17 Gm Packet) 17 gm PO DAILYP PRN PRN Reason: Constipation Promethazine HCl (Promethazine 25 Mg/Ml Vial) 12.5 mg IV Q4-6HP PRN; Protocol PRN Reason: Nausea And Vomiting Quetiapine Fumarate (Quetiapine 25 Mg Tablet) 12.5 mg PO HSP PRN PRN Reason: iNSOMNIA-2nd option Senna (Sennosides 1 Tablet) 2 tab PO HS [facility] Last Admin: 02/05/22 21:33 Dose: 2 tab Documented by: Sodium Biphosphate/Sodium Phosphate (Fleets Adult Enema) 1 dose IN Q3-4DAYS PRN PRN Reason: Constipation Sodium Chloride (0.9 % Sodium Chloride 10 Ml Syringe) 10 ml IV Q8 [facility] Last Admin: 02/06/22 05:56 Dose: 10 ml Documented by: Tramadol HCl (Tramadol 50 Mg Tablet) 50 mg PO Q4-6HP PRN; Protocol PRN Reason: Pain Last Admin: 02/06/22 00:09 Dose: 50 mg Documented by: Warfarin Sodium (Warfarin Per Pharmacy) 1 order PO DAILY@1400 [facility] Last Admin: 02/05/22 21:33 Dose: Not Given Documented by: Warfarin Sodium (Warfarin 5 Mg Tablet) 5 mg PO DAILY@1400 [facility] Stop: 02/06/22 17:00 A/P Assessment and plan (1) Closed fracture of right hip: Status: Acute (2) Anemia: Status: Acute (3) Factor V Leiden: Status: Chronic (4) CHF NYHA class III (symptoms with mildly strenuous activities): Status: Chronic (5) Artificial pacemaker: Status: Acute (6) Chronic anticoagulation: Status: Chronic (7) Chronic constipation: Status: Acute Narrative A/P Narrative: Assessment and Plans: 1. Right closed hip fracture, s/p right hip arthroplasty by orthopedic surgeon Dr. Ruano 02/05: Stay in inpatient [facility] Physical therapy evaluation and treatment and for placement pending Pain controlled with tramadol, [place], IV morphine, IV Dilaudid for different severity is of pain Restart Coumadin as lonnie-surgical prophylaxis, with daily INR 2. Blood loss anemia in the context of factor V Leyden: Restart Coumadin as lonnie-surgical prophylaxis, with daily INR Pepcid IV BID cbc w/ auto diff daily to trend H/H 3. h/o CHF NYHA III: Hold diuretics, instead giving NS bolus for decreased urine output overnight Continue supplemental oxygen therapy as needed titrate to achieve SPO2 greater than or equal to 92% 4. History of chronic constipation: Colace Senna Milk of Magnesia Miralax GI ppx: Pepcid IV BID DVT ppx: Coumadin Code status: DNR Prognosis: stable Disposition: inpatient med surg; PT Time Spent With Patient Time: Total time spent is greater than 50% in coordination of care (as documented) at patient's floor/unit and/or counseling patient: Total time spent with greater than 50% in coordination of care (as documented) at patient's floor/unit and/or counseling patient:: 35 - 50 minutes QUALITY VTE Deep Vein Thrombosis/Pulmonary Embolism Present on Admission: No
[2022-02-06] MEDS ORDERED: 0.9 % SODIUM CHLORIDE 1,000 ML IV ONE (10:46)
[2022-02-06] MEDS ORDERED: SUCRETS LOZENGE PO PRN (10:52)
[2022-02-06] MEDS: 0.9 % SODIUM CHLORIDE 1,000 ML IV SCH (14:47)
[2022-02-06] MEDS ORDERED: ACETAMINOPHEN 1,000 MG/100 ML BAG IV PRN (18:45)
--- NOTE | 2022-02-06 19:39 | EKG ---
[facility] Test Date: 2022-02-04 Pat Name: Mike Diaz Department: ED Room: Gender: Male Striper: malissa : 1935 Requested By: Tony Lala Order Number: [id number] Reading MD: Sim Salguero Measurements Intervals [place] Rate: 60 P: 151 MA: 485 QRS: -77 QRSD: 161 T: 74 QT: 484 QTc: 484 Interpretive Statements Ventricular-paced complexes No further analysis attempted due to paced rhythm Electronically Signed On 02-06-2022 19:38:59 PDT by Sim Salguero /[id number]
[2022-02-06] MEDS: SENNOSIDES 1 TABLET PO SCH ×2 (20:16→21:00)
[2022-02-07] MEDS: 0.9 % SODIUM CHLORIDE 1,000 ML IV SCH ×3 (01:36→23:58)
[2022-02-07 06:32] LABS: INR 1.2 (0.9-1.1); Prothrombin Time 15.4 sec (11.9-14.5)
[2022-02-07 06:42] LABS: ALT/SGPT 12 U/L (<40); AST/SGOT 35 U/L (<40); Albumin/Globulin Ratio 1.2 (1.0-2.3); Alkaline Phosphatase 79 U/L (39-117); Bilirubin,Total 0.5 mg/dL (0.1-1.0); Blood Urea Nitrogen 39 mg/dL (8-23); Calcium 8.3 mg/dL (8.6-10.4); Carbon Dioxide 17 mmol/L (22-30); Chloride 98 mmol/L (96-108); Globulin 2.5 gm/dL (2.2-3.7); Glomerular Filtration Rate 27; Glucose 171 mg/dL (70-105)
[2022-02-07] MEDS: 0.9 % SODIUM CHLORIDE 10 ML SYRINGE IV SCH ×3 (06:58→21:54)
--- NOTE | 2022-02-07 07:08 | Orthopedic Progress Note ---
SUBJECTIVE Subjective Patient information: Note initiated : 02/07/22 at 7:00 am Service Date, if different from initiated Date: [] Patient: Mike Diaz 86 y/o M admitted on 02/04/22 for right hip pain, fall, on blood thinners. Chief Complaint: [s/p right hip hemiarthroplasty ] Pertinent ROS: unobtainable due to pt condition Constitutional Vitals: Vital Signs Temp Pulse Resp BP Pulse Ox 98.1 F 58 L 21 96/59 86 L 02/07/22 04:12 02/07/22 04:12 02/07/22 04:12 02/07/22 04:01 02/07/22 04:12 Period Temp Pulse Resp BP Sys/Jamison Pulse Ox Last 24 Hr 98.1 F-99.7 F 55-69 15- 63-114/48-78 86-97 Intake and Output 02/06/22 02/07/22 02/07/22 21:59 05:59 13:59 Intake Total 460 1000 Output Total 39 66 Balance 421 934 Weight 190 lb Intake & Output: Intake & Output 02/06/22 02/07/22 02/07/22 21:59 05:59 13:59 Intake Total 460 1000 Output Total 39 66 Balance 421 934 Weight 190 lb Intake: IV 100 1000 Sodium Chloride 0.9% 1,000 ml @ 1000 100 mls/hr IV .Q10H [facility] Rx#: [id number] Oral 360 Output: Urine Catheter Amount 39 66 Other: Meal Dinner Percent of Meal Consumed Refused Feeding Ability Assist with Tray Set Up Urine Appearance Clear Clear Uretheral (Malone) Clear Urine Color Dark Yellow Dark Yellow Uretheral (Malone) Dark Yellow Urine Odor Normal OBJ DATA Labs CBC & Chem 7: 02/06/22 05:36 02/07/22 05:13 Labs: Abnormal Lab Results 02/07/22 02/07/22 02/06/22 05:14 05:13 05:37 WBC RBC Hgb Hct MCV MCH MCHC RDW Immature Gran % (Auto) Neut % (Auto) Lymph % (Auto) Routt % (Auto) Lymph # (Auto) Routt # (Auto) POC PT PT 15.4 H POC INR INR 1.2 H APTT Sodium 129 L Potassium 5.3 H Carbon Dioxide 17 L BUN 39 H 26 H Creatinine 2.1 H Glucose 171 H 172 H Calcium 8.3 L Magnesium 3.2 H 3.1 H Total Bilirubin Total Protein 5.5 L 5.8 L Albumin 3.0 L Globulin Urine Protein Urine Ketones Ur Leukocyte Esterase Urine RBC 02/06/22 02/06/22 02/06/22 05:37 05:36 02:16 WBC RBC 3.90 L 3.94 L Hgb 9.5 L 9.7 L Hct 32.3 L 32.5 L MCV MCH 24.4 L 24.6 L MCHC 29.4 L 29.8 L RDW 16.3 H 16.2 H Immature Gran % (Auto) 0.7 H Neut % (Auto) 82.7 H 86.9 H Lymph % (Auto) 6.6 L 6.1 L Routt % (Auto) Lymph # (Auto) 0.41 L 0.35 L Routt # (Auto) POC PT PT 15.5 H POC INR INR 1.2 H APTT Sodium Potassium Carbon Dioxide BUN Creatinine Glucose Calcium Magnesium Total Bilirubin Total Protein Albumin Globulin Urine Protein Urine Ketones Ur Leukocyte Esterase Urine RBC 02/05/22 02/05/22 02/05/22 20:11 14:17 11:56 WBC RBC 4.21 L 3.94 L Hgb 10.3 L 9.8 L Hct 34.7 L 31.9 L MCV MCH 24.5 L 24.9 L MCHC 29.7 L 30.7 L RDW 16.1 H 15.9 H Immature Gran % (Auto) Neut % (Auto) 86.5 H Lymph % (Auto) 6.1 L 11.0 L Routt % (Auto) 15.6 H Lymph # (Auto) 0.49 L 0.67 L Routt # (Auto) 0.95 H POC PT PT POC INR INR APTT Sodium Potassium Carbon Dioxide BUN Creatinine Glucose Calcium Magnesium Total Bilirubin Total Protein Albumin Globulin Urine Protein 30 A Urine Ketones 5 A Ur Leukocyte Esterase 25 A Urine RBC 36 H 02/05/22 02/05/22 02/05/22 05:49 05:49 05:48 WBC RBC 3.96 L Hgb 9.8 L Hct 31.7 L MCV MCH 24.7 L MCHC 30.9 L RDW 15.9 H Immature Gran % (Auto) Neut % (Auto) Lymph % (Auto) 11.4 L Routt % (Auto) 17.4 H Lymph # (Auto) 0.60 L Routt # (Auto) 0.92 H POC PT PT 15.7 H POC INR INR 1.2 H APTT Sodium 132 L Potassium Carbon Dioxide BUN Creatinine Glucose 126 H Calcium Magnesium 2.8 H Total Bilirubin 1.5 H Total Protein 5.7 L Albumin Globulin Urine Protein Urine Ketones Ur Leukocyte Esterase Urine RBC 02/05/22 02/04/22 02/04/22 03:16 21:07 20:18 WBC RBC 3.25 L Hgb 9.6 L 7.8 L Hct 26.2 L MCV MCH 24.0 L MCHC 29.8 L RDW 16.5 H Immature Gran % (Auto) Neut % (Auto) Lymph % (Auto) 9.0 L Routt % (Auto) 14.0 H Lymph # (Auto) 0.52 L Routt # (Auto) POC PT PT POC INR INR APTT 39.1 H Sodium Potassium Carbon Dioxide BUN Creatinine Glucose Calcium Magnesium Total Bilirubin Total Protein Albumin Globulin Urine Protein Urine Ketones Ur Leukocyte Esterase Urine RBC 02/04/22 02/04/22 02/04/22 16:48 15:05 15:05 WBC 3.2 L RBC 2.95 L Hgb 6.7 L* Hct 22.9 L MCV 77.6 L MCH 22.7 L MCHC 29.3 L RDW 15.7 H Immature Gran % (Auto) Neut % (Auto) Lymph % (Auto) Routt % (Auto) 12.3 H Lymph # (Auto) 0.84 L [place]t # (Auto) POC PT 35.2 H PT POC INR 3.1 H INR APTT Sodium Potassium Carbon Dioxide BUN Creatinine Glucose 126 H Calcium Magnesium Total Bilirubin Total Protein Albumin Globulin 2.1 L Urine Protein Urine Ketones Ur Leukocyte Esterase Urine RBC Meds: Medications Acetaminophen (Acetaminophen 325 Mg Tablet) 650 mg PO Q4-6HP PRN; Protocol PRN Reason: Per Pain Protocol/Fever > 101 Last Admin: 02/06/22 01:06 Dose: 650 mg Documented by: Hydrocodone Bitart/Acetaminophen (Hydrocodone/Apap 5/325mg Tablet) 0 tab PO Q4HP PRN; Protocol PRN Reason: Per Pain Protocol Last Admin: 02/06/22 12:41 Dose: 1 tab Documented by: Albuterol Sulfate (Albuterol Sulfate 2.5 Mg/3 Ml Nebulizer) 2.5 mg NEB Q4HRT PRN PRN Reason: wheezing Bisacodyl (Bisacodyl 10 Mg Supp.Rect) 10 mg [place] Q2-3DAYS PRN PRN Reason: Constipation Car[facility]il[facility] ([facility] 3.125 Mg [facility]t) [facility] Last Admin: 02/06/22 08:38 Dose: 3.125 mg Documented by: Cyclobenzaprine HCl (Cyclobenzaprine 10 Mg Tablet) 5 mg PO TIDP PRN PRN Reason: Muscle Spasm Last Admin: 02/06/22 20:39 Dose: 5 mg Documented by: Diltiazem HCl (Diltiazem 25 Mg/5 Ml Vial) 10 mg IV Q4HP PRN PRN Reason: Tachyarrhythmias Diphenhydramine HCl (Diphenhydramine 25 Mg Capsule) 25 mg PO HSP PRN PRN Reason: Insomnia Last Admin: 02/06/22 00:16 Dose: 25 mg Documented by: Docusate Sodium (Docusate Sodium 100 Mg Capsule) 100 mg PO BID [facility] Last Admin: 02/06/22 20:15 Dose: 100 mg Documented by: Famotidine (Famotidine/Pf 20 Mg/2 Ml Vial) 20 mg IV Q12 [facility] Last Admin: 02/06/22 20:16 Dose: 20 mg Documented by: Hydralazine HCl (Hydralazine 20 Mg/Ml Vial) 10 mg IV Q4-6HP PRN PRN Reason: Hypertension Hydromorphone HCl (Hydromorphone 0.5 Mg/0.5 Ml Syringe) 0.25 mg IV Q2HP PRN; Protocol PRN Reason: Per Pain Protocol Last Admin: 02/06/22 21:09 Dose: 0.25 mg Documented by: Sodium Chloride (Sodium Chloride 0.9%) 1,000 mls @ 100 mls/hr IV .Q10H [facility] Last Admin: 02/07/22 01:36 Dose: 100 mls/hr Documented by: Acetaminophen (Ofirmev) 1,000 mg in 100 mls @ 200 mls/hr IV Q6HP PRN; Protocol PRN Reason: Fever Last Infusion: 02/06/22 19:42 Dose: Infused Documented by: Levetiracetam (Levetiracetam 500 Mg Tablet) 500 mg PO BID [facility] Last Admin: 02/06/22 20:15 Dose: 500 mg Documented by: Magnesium Hydroxide (Magnesium Hydroxide 30 Ml Oral.Susp) 30 ml PO BIDP PRN PRN Reason: Constipation Melatonin (Melatonin 3 Mg Tablet) 3 mg PO HSP PRN PRN Reason: Insomnia Last Admin: 02/06/22 20:15 Dose: 3 mg Documented by: Morphine Sulfate (Morphine 4 Mg/Ml Vial) 0 mg IV Q1HP PRN; Protocol PRN Reason: Per Pain Protocol Ondansetron HCl (Ondansetron 4 Mg Odt Tablet) 4 mg SL Q4HP PRN; Protocol PRN Reason: Nausea And Vomiting Polyethylene Glycol (Polyethylene Glycol 3350 17 Gm Packet) 17 gm PO DAILYP PRN PRN Reason: Constipation Last Admin: 02/06/22 11:15 Dose: 17 gm Documented by: Promethazine HCl (Promethazine 25 Mg/Ml Vial) 12.5 mg IV Q4-6HP PRN; Protocol PRN Reason: Nausea And Vomiting Quetiapine Fumarate (Quetiapine 25 Mg Tablet) 12.5 mg PO HSP PRN PRN Reason: iNSOMNIA-2nd option Senna (Sennosides 1 Tablet) 2 tab PO [facility] Last Admin: 02/06/22 21:00 Dose: Not Given Documented by: Sodium Biphosphate/Sodium Phosphate (Fleets Adult Enema) 1 dose [place] Q3-4DAYS PRN PRN Reason: Constipation Sodium Chloride (0.9 % Sodium Chloride 10 Ml Syringe) 10 ml IV Q8 [facility] Last Admin: 02/07/22 06:58 Dose: Not Given Documented by: Tramadol HCl (Tramadol 50 Mg Tablet) 50 mg PO Q4-6HP PRN; Protocol PRN Reason: Pain Last Admin: 02/06/22 00:09 Dose: 50 mg Documented by: Warfarin Sodium (Warfarin Per Pharmacy) 1 order PO DAILY@1400 [facility] Last Admin: 02/06/22 14:47 Dose: Not Given Documented by: Warfarin Sodium (Warfarin 5 Mg Tablet) 5 mg PO DAILY@1400 [facility] Stop: 02/07/22 19:00 A/P Narrative A/P Narrative: Patient seen and examined this am daughter also at bedside. somnolent but responds to painful stimuli. Dressing at E is CDI both lower extremities are warm, well perfused with palpable dorsalis pedis pulses. Ice pack and SCDs in place. Daughter endorses that patient was not able to ambulate with PT due to orthostatic hypotension. Plan is for expected discharge per attending hospitalist in 2-3 days with follow up at [facility] in 10-14 days s/p discharge. WBAT walker for assistance PT/OT Pain control Time Spent With Patient Time: Total time spent is greater than 50% in coordination of care (as documented) at patient's floor/unit and/or counseling patient:
[2022-02-07 07:40] LABS: Basophils # (Auto) 0.01 K/mcL (0.00-0.30); Basophils % (Auto) 0.1 % (0.0-2.0); Eosinophils # (Auto) 0.01 K/mcL (0.00-0.70); Eosinophils % (Auto) 0.1 % (0.0-7.0); Hematocrit 33.4 % (40.1-51.0); Hemoglobin 9.5 g/dL (13.7-17.5); Lymphocytes # (Auto) 0.55 K/mcL (1.50-4.80); Lymphocytes % (Auto) 6.8 % (15.5-49.0); Mean Cell Volume 87.4 fL (80.0-100.0); Mean Corpuscular HGB Conc 28.4 g/dL (31.0-36.0); Mean Platelet Volume 11.7 fL (7.4-10.4); Monocytes # (Auto) 0.97 K/mcL (0.10-0.90); Neutrophils % (Auto) 79.6 % (38.0-78.0); Platelet Count 86 K/mcL (140-440); RBC 3.82 M/mcL (4.63-6.08); Red Cell Distribution Width 17.5 % (11.5-14.5); WBC 8.1 K/mcL (4.5-11.0)
--- NOTE | 2022-02-07 09:25 | Internal Med Progress Note ---
SUBJECTIVE Subjective Patient information: Note initiated : 02/07/22 at 9:15 am Service Date, if different from initiated Date: [] Patient: Mike Diaz 86 y/o M admitted on 02/04/22 for right hip pain, fall, on blood thinners. 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 According to the patient has been very tired for the last 5 to 6 days and he slipped and fell onto his right hip this afternoon. Patient and denied hitting the head or hitting the spine area. Patient has externally rotated right leg with significant pain and cramping. He denied any numbness or tingling. Patient was evaluated and found to have a right femur fracture communicated with the orthopedic surgeon and planning for surgery. 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 Updated orthopedic surgeon and planning to proceed with the surgery. He also found to have a hemoglobin of 6.7 from 11 earlier this year. denied any melena or hematochezia. No previous history of GI bleed. Patient underwent CT scan of the abdomen and pelvis with contrast to look for any retroperitoneal bleed or intra-abdominal bleed which was negative. 02/05 Patient is slightly drowsy this morning His blood pressure is around 100 Hemoglobin 9.6 No hypoxia His crackles improved His INR is 1.2 Orthopedic team planning for surgery and eval pending We will continue monitoring his 02/06: Status post right hip Danny arthroplasty by orthopedic surgeons Dr. Ruano, with a blood loss about 150 cc, no major complications, and patient tolerated the surgery well. No bowel movement overnight since the surgery. Patient is currently complaining of 7 out of 10 right hip sharp constant pain. He denies any constipations or abdominal distention's. He is currently on 1 L of oxygen's. Restart Coumadin as lonnie-surgical prophylaxis. Tramadol, [place], morphine, Dilaudid, or available for pain control given severity. CBC daily to trend H&H. Continue Pepcid. Colace, senna, MiraLAX, milk of magnesia available for constipation. Pending physical therapy evaluations for placement pending. 02/07: Increasing level of altered mental status and also more lethargic. Blood pressure also guarded with a MAP of 64 mmHg at the moment. Also very poor urine output with average hourly urine output in the teens. H&H stable. INR 1.2, same as yesterday. Serum Cr 1.2-->2.1. Sodium/potassium 129 and 5.3, respectively. Will transferred patient's back from [facility] to [facility] for closer monitoring. Will order chest x-ray to rule out any acute intra thoracic pathology such as pneumonia. Will order CT of the head without contrast to look for acute intracranial pathologies such as stroke or intracranial bleed. We will continue IV fluid for hyper natremia as well as acute kidney injury. If MAP< 60mmHg, will start pressors. Constitutional Vitals: Vital Signs Temp Pulse Resp BP Pulse Ox 36.7 C 62 24 H 84/55 95 02/07/22 08:16 02/07/22 08:16 02/07/22 08:16 02/07/22 08:13 02/07/22 08:16 Period Temp Pulse Resp BP Sys/Jamison Pulse Ox Last 24 Hr 36.7 C-37.6 C 55-69 15-24 63-114/48-78 86-96 Intake and Output 02/06/22 02/07/22 02/07/22 21:59 05:59 13:59 Intake Total 460 1000 Output Total 39 66 17 Balance 421 934 -17 Weight 86.183 kg Intake & Output: Intake & Output 02/06/22 02/07/22 02/07/22 21:59 05:59 13:59 Intake Total 460 1000 Output Total 39 66 17 Balance 421 934 -17 Weight 86.183 kg Intake: IV 100 1000 Sodium Chloride 0.9% 1,000 ml @ 1000 100 mls/hr IV .Q10H [facility] Rx#: [id number] Oral 360 Output: Urine Catheter Amount 39 66 17 Other: Meal Dinner Percent of Meal Consumed Refused Feeding Ability Assist with Tray Set Up Urine Appearance Clear Clear Clear Uretheral (Malone) Clear Urine Color Dark Yellow Dark Yellow Bright Yellow Uretheral (Malone) Dark Yellow Urine Odor Normal Normal General appearance: average body habitus and mild distress Head Head exam: Present atraumatic and normal inspection Eye Eye exam: Present normal appearance ENT ENT exam: Present mucous membranes moist, normal exam and normal external ear exam Additional comments: Nasal cannula in place Neck Neck exam: Present normal inspection Respiratory Respiratory exam: Present normal respiratory exam Cardiovascular Cardiovascular exam: Present normal rate and rhythm GI/Abdominal GI/Abdominal exam: Present normal bowel sounds Additional comments: Malone catheter in place Extremities Exam Extremities exam: Absent full ROM or normal inspection Additional comments: Right lateral hips covered by surgical dressing with tenderness to palpation. Active and passive ROMs limited by pain Back Exam Back exam: Present normal inspection Neurological Exam Neurological exam: Present altered Additional comments: orientation cannot be assessed due to clinical situations Skin Skin exam: Present intact and warm OBJ DATA Labs CBC & Chem 7: 02/07/22 05:13 02/07/22 05:13 Labs: Abnormal Lab Results 02/07/22 02/07/22 02/07/22 08:42 05:14 05:13 WBC RBC 3.82 L Hgb 9.5 L Hct 33.4 L MCV MCH 24.9 L MCHC 28.4 L RDW 17.5 H Plt Count 86 L MPV 11.7 H Immature Gran % (Auto) 1.4 H Neut % (Auto) 79.6 H Lymph % (Auto) 6.8 L [place] % (Auto) Lymph # (Auto) 0.55 L [place] # (Auto) 0.97 H Immature Gran # 0.11 H POC PT PT 15.4 H POC INR INR 1.2 H APTT POC pH 7.32 L POC pO2 33 L* POC HCO3 21.0 L POC Total CO2 22.0 L POC ABG Base Excess -5.0 L Hgb O2 Saturation 59.0 L Sodium Potassium Carbon Dioxide BUN Creatinine Glucose POC Arterial Lactate 2.2 H Calcium Magnesium Total Bilirubin Total Protein Albumin Globulin Urine Protein Urine Ketones Ur Leukocyte Esterase Urine RBC 02/07/22 02/06/22 02/06/22 05:13 05:37 05:37 WBC RBC Hgb Hct MCV MCH MCHC RDW Plt Count MPV Immature Gran % (Auto) Neut % (Auto) Lymph % (Auto) [place] % (Auto) Lymph # (Auto) [place] # (Auto) Immature Gran # POC PT PT 15.5 H POC INR INR 1.2 H APTT POC pH POC pO2 POC HCO3 POC Total CO2 POC ABG Base Excess Hgb O2 Saturation Sodium 129 L Potassium 5.3 H Carbon Dioxide 17 L BUN 39 H 26 H Creatinine 2.1 H Glucose 171 H 172 H POC Arterial Lactate Calcium 8.3 L Magnesium 3.2 H 3.1 H Total Bilirubin Total Protein 5.5 L 5.8 L Albumin 3.0 L Globulin Urine Protein Urine Ketones Ur Leukocyte Esterase Urine RBC 02/06/22 02/06/22 02/05/22 05:36 02:16 20:11 WBC RBC 3.90 L 3.94 L 4.21 L Hgb 9.5 L 9.7 L 10.3 L Hct 32.3 L 32.5 L 34.7 L MCV MCH 24.4 L 24.6 L 24.5 L MCHC 29.4 L 29.8 L 29.7 L RDW 16.3 H 16.2 H 16.1 H Plt Count MPV Immature Gran % (Auto) 0.7 H Neut % (Auto) 82.7 H 86.9 H 86.5 H Lymph % (Auto) 6.6 L 6.1 L 6.1 L [place] % (Auto) Lymph # (Auto) 0.41 L 0.35 L 0.49 L [place] # (Auto) Immature Gran # POC PT PT POC INR INR APTT POC pH POC pO2 POC HCO3 POC Total CO2 POC ABG Base Excess Hgb O2 Saturation Sodium Potassium Carbon Dioxide BUN Creatinine Glucose POC Arterial Lactate Calcium Magnesium Total Bilirubin Total Protein Albumin Globulin Urine Protein Urine Ketones Ur Leukocyte Esterase Urine RBC 02/05/22 02/05/22 02/05/22 14:17 11:56 05:49 WBC RBC 3.94 L Hgb 9.8 L Hct 31.9 L MCV MCH 24.9 L MCHC 30.7 L RDW 15.9 H Plt Count MPV Immature Gran % (Auto) Neut % (Auto) Lymph % (Auto) 11.0 L [place] % (Auto) 15.6 H Lymph # (Auto) 0.67 L [place] # (Auto) 0.95 H Immature Gran # POC PT PT POC INR INR APTT POC pH POC pO2 POC HCO3 POC Total CO2 POC ABG Base Excess Hgb O2 Saturation Sodium 132 L Potassium Carbon Dioxide BUN Creatinine Glucose 126 H POC Arterial Lactate Calcium Magnesium 2.8 H Total Bilirubin 1.5 H Total Protein 5.7 L Albumin Globulin Urine Protein 30 A Urine Ketones 5 A Ur Leukocyte Esterase 25 A Urine RBC 36 H 02/05/22 02/05/22 02/05/22 05:49 05:48 03:16 WBC RBC 3.96 L Hgb 9.8 L 9.6 L Hct 31.7 L MCV MCH 24.7 L MCHC 30.9 L RDW 15.9 H Plt Count MPV Immature Gran % (Auto) Neut % (Auto) Lymph % (Auto) 11.4 L [place] % (Auto) 17.4 H Lymph # (Auto) 0.60 L [place] # (Auto) 0.92 H Immature Gran # POC PT PT 15.7 H POC INR INR 1.2 H APTT POC pH POC pO2 POC HCO3 POC Total CO2 POC ABG Base Excess Hgb O2 Saturation Sodium Potassium Carbon Dioxide BUN Creatinine Glucose POC Arterial Lactate Calcium Magnesium Total Bilirubin Total Protein Albumin Globulin Urine Protein Urine Ketones Ur Leukocyte Esterase Urine RBC 02/04/22 02/04/22 02/04/22 21:07 20:18 16:48 WBC RBC 3.25 L Hgb 7.8 L Hct 26.2 L MCV MCH 24.0 L MCHC 29.8 L RDW 16.5 H Plt Count MPV Immature Gran % (Auto) Neut % (Auto) Lymph % (Auto) 9.0 L [place] % (Auto) 14.0 H Lymph # (Auto) 0.52 L [place] # (Auto) Immature Gran # POC PT 35.2 H PT POC INR 3.1 H INR APTT 39.1 H POC pH POC pO2 POC HCO3 POC Total CO2 POC ABG Base Excess Hgb O2 Saturation Sodium Potassium Carbon Dioxide BUN Creatinine Glucose POC Arterial Lactate Calcium Magnesium Total Bilirubin Total Protein Albumin Globulin Urine Protein Urine Ketones Ur Leukocyte Esterase Urine RBC 02/04/22 02/04/22 15:05 15:05 WBC 3.2 L RBC 2.95 L Hgb 6.7 L* Hct 22.9 L MCV 77.6 L MCH 22.7 L MCHC 29.3 L RDW 15.7 H Plt Count MPV Immature Gran % (Auto) Neut % (Auto) Lymph % (Auto) [place] % (Auto) 12.3 H Lymph # (Auto) 0.84 L [place] # (Auto) Immature Gran # POC PT PT POC INR INR APTT POC pH POC pO2 POC HCO3 POC Total CO2 POC ABG Base Excess Hgb O2 Saturation Sodium Potassium Carbon Dioxide BUN Creatinine Glucose 126 H POC Arterial Lactate Calcium Magnesium Total Bilirubin Total Protein Albumin Globulin 2.1 L Urine Protein Urine Ketones Ur Leukocyte Esterase Urine RBC Meds: Medications Acetaminophen (Acetaminophen 325 Mg Tablet) 650 mg PO Q4-6HP PRN; Protocol PRN Reason: Per Pain Protocol/Fever > 101 Last Admin: 02/06/22 01:06 Dose: 650 mg Documented by: Hydrocodone Bitart/Acetaminophen (Hydrocodone/Apap 5/325mg Tablet) 0 tab PO Q4HP PRN; Protocol PRN Reason: Per Pain Protocol Last Admin: 02/06/22 12:41 Dose: 1 tab Documented by: Albuterol Sulfate (Albuterol Sulfate 2.5 Mg/3 Ml Nebulizer) 2.5 mg NEB Q4HRT OR N PRN Reason: wheezing Bisacodyl (Bisacodyl 10 Mg Supp.Rect) 10 mg OR Q2-3DAYS PRN PRN Reason: Constipation Carvedilol (Carvedilol 3.125 Mg Tablet) 3.[address] [facility] Last Admin: 02/06/22 08:38 Dose: 3.125 mg Documented by: Cyclobenzaprine HCl (Cyclobenzaprine 10 Mg Tablet) 5 mg PO TIDP PRN PRN Reason: Muscle Spasm Last Admin: 02/06/22 20:39 Dose: 5 mg Documented by: Diltiazem HCl (Diltiazem 25 Mg/5 Ml Vial) 10 mg IV Q4HP PRN PRN Reason: Tachyarrhythmias Diphenhydramine HCl (Diphenhydramine 25 Mg Capsule) 25 mg PO HSP PRN PRN Reason: Insomnia Last Admin: 02/06/22 00:16 Dose: 25 mg Documented by: Docusate Sodium (Docusate Sodium 100 Mg Capsule) 100 mg PO BID [facility] Last Admin: 02/06/22 21:00 Dose: Not Given Documented by: Famotidine (Famotidine/Pf 20 Mg/2 Ml Vial) 20 mg IV Q12 [facility] Last Admin: 02/06/22 20:16 Dose: 20 mg Documented by: Hydralazine HCl (Hydralazine 20 Mg/Ml Vial) 10 mg IV Q4-6HP PRN PRN Reason: Hypertension Hydromorphone HCl (Hydromorphone 0.5 Mg/0.5 Ml Syringe) 0.25 mg IV Q2HP PRN; Protocol PRN Reason: Per Pain Protocol Last Admin: 02/06/22 21:09 Dose: 0.25 mg Documented by: Sodium Chloride (Sodium Chloride 0.9%) 1,000 mls @ 100 mls/hr IV .Q10H [facility] Last Admin: 02/07/22 01:36 Dose: 100 mls/hr Documented by: Acetaminophen (Ofirmev) 1,000 mg in 100 mls @ 200 mls/hr IV Q6HP PRN; Protocol PRN Reason: Fever Last Infusion: 02/06/22 19:42 Dose: Infused Documented by: Levetiracetam (Levetiracetam 500 Mg Tablet) 500 mg PO BID [facility] Last Admin: 02/06/22 20:15 Dose: 500 mg Documented by: Magnesium Hydroxide (Magnesium Hydroxide 30 Ml Oral.Susp) 30 ml PO BIDP PRN PRN Reason: Constipation Melatonin (Melatonin 3 Mg Tablet) 3 mg PO HSP PRN PRN Reason: Insomnia Last Admin: 02/06/22 20:15 Dose: 3 mg Documented by: Morphine Sulfate (Morphine 4 Mg/Ml Vial) 0 mg IV Q1HP PRN; Protocol PRN Reason: Per Pain Protocol Ondansetron HCl (Ondansetron 4 Mg Odt Tablet) 4 mg SL Q4HP PRN; Protocol PRN Reason: Nausea And Vomiting Polyethylene Glycol (Polyethylene Glycol 3350 17 Gm Packet) 17 gm PO DAILYP PRN PRN Reason: Constipation Last Admin: 02/06/22 11:15 Dose: 17 gm Documented by: Promethazine HCl (Promethazine 25 Mg/Ml Vial) 12.5 mg IV Q4-6HP PRN; Protocol PRN Reason: Nausea And Vomiting Quetiapine Fumarate (Quetiapine 25 Mg Tablet) 12.5 mg PO HSP PRN PRN Reason: iNSOMNIA-2nd option Senna (Sennosides 1 Tablet) 2 tab PO HS [facility] Last Admin: 02/06/22 21:00 Dose: Not Given Documented by: Sodium Biphosphate/Sodium Phosphate (Fleets Adult Enema) 1 dose OR Q3-4DAYS PRN PRN Reason: Constipation Sodium Chloride (0.9 % Sodium Chloride 10 Ml Syringe) 10 ml IV Q8 [facility] Last Admin: 02/07/22 06:58 Dose: Not Given Documented by: Tramadol HCl (Tramadol 50 Mg Tablet) 50 mg PO Q4-6HP PRN; Protocol PRN Reason: Pain Last Admin: 02/06/22 00:09 Dose: 50 mg Documented by: Warfarin Sodium (Warfarin Per Pharmacy) 1 order PO DAILY@1400 CARMELITA Last Admin: 02/06/22 14:47 Dose: Not Given Documented by: Warfarin Sodium (Warfarin 5 Mg Tablet) 5 mg PO DAILY@1400 CARMELITA Stop: 02/07/22 19:00 A/P Assessment and plan (1) Closed fracture of right hip: Status: Acute (2) Anemia: Status: Acute (3) Factor V Leiden: Status: Chronic (4) CHF NYHA class III (symptoms with mildly strenuous activities): Status: Chronic (5) Artificial pacemaker: Status: Acute (6) Chronic anticoagulation: Status: Chronic (7) Chronic constipation: Status: Acute (8) Delirium: Status: Acute (9) Stage 2 acute kidney injury: Status: Acute (10) Hyponatremia: Status: Acute (11) Hyperkalemia: Status: Acute Narrative A/P Narrative: Assessment and Plans: 1. Right closed hip fracture, s/p right hip arthroplasty by orthopedic surgeon Dr. Ruano 02/05: Transfer to PCU Physical therapy evaluation and treatment and for placement pending Pain controlled with tramadol, [place], IV morphine, IV Dilaudid for different severity is of pain Restart Coumadin as lonnie-surgical prophylaxis, with daily INR 2. Blood loss anemia in the context of factor V Leyden: Restart Coumadin as lonnie-surgical prophylaxis, with daily INR Pepcid IV BID cbc w/ auto diff daily to trend H/H 3. h/o CHF NYHA III: Hold diuretics, and continue NS@100cc/hr Continue supplemental oxygen therapy as needed titrate to achieve SPO2 greater than or equal to 92% 4. History of chronic constipation: Colace Senna Milk of Magnesia Miralax 5. Acute delirium: DDx: encephalopathy 2/2 recent surgery, CVA, multiorgan failure CT head w/o contrast to rule out stroke/intracranial bleed Treat other underlying cause of delirium such as pain Frequent re-orientation during the day and protected sleep during the night 6. Stage 2 acute kidney injury with electrolytes imbalance: Continue NS@100cc/hr Avoid nephrotoxic agents CMP daily and urine output measurement GI ppx: Pepcid IV BID DVT ppx: Coumadin Code status: DNR Prognosis: guarded Disposition: inpatient PCU; PT Time Spent With Patient Time: Total time spent is greater than 50% in coordination of care (as documented) at patient's floor/unit and/or counseling patient: Total time spent with greater than 50% in coordination of care (as documented) at patient's floor/unit and/or counseling patient:: 50 - 70 minutes QUALITY VTE Deep Vein Thrombosis/Pulmonary Embolism Present on Admission: No
--- NOTE | 2022-02-07 10:13 | Cat Scan Report ---
History: Altered mental status fell, anticoagulated TECHNIQUE: The brain was imaged without contrast in axial plane at 2.5 mm intervals. The radiation exposure was limited using dose reduction technology. FINDINGS: There is mild to moderate generalized cerebral atrophy with the greatest involvement above the tentorium. There is no hemorrhage or mass effect. A subtle 3 x 4 mm lacunar infarct with encephalomalacia is seen in the right globus pallidus near the genu of the right internal capsule. This is better seen today than on the prior study done on 02/04/22. It does not appear acute. No acute infarct is detected. The ventricles are normal in size, allowing for atrophy. There is no abnormal extra-axial fluid collection. Bone windows show no skull fracture. There is stable moderately severe sinusitis in the left maxillary sinus. IMPRESSION: No hemorrhage or acute abnormality Tiny lacunar infarct in right basal ganglia Left maxillary sinusitis Interpreted and Authenticated by: Nomi Caballero 02/07/22
--- NOTE | 2022-02-07 10:26 | XRay Report ---
HISTORY: Short of breath, fell with right hip pain, on blood thinners FINDINGS: The heart is mild to moderately enlarged but has diminished in size since 02/04/22. Pacemaker remains well-positioned. There are ill-defined alveolar opacities in both lungs with the greatest involvement around the frannie and behind the left heart border. These have become worse since the prior chest x-ray. There may be very small subpulmonic pleural effusions bilaterally. The pulmonary vessels are obscured by the alveolar opacities. No acute fracture is detected. IMPRESSION: Cardiomegaly Worsening bilateral alveolar opacities. This is probably due to congestive heart failure. However, superimposed pneumonia should be considered. Interpreted and Authenticated by: Nomi Caballero 02/07/22
[2022-02-07] MEDS ORDERED: PIPERACILLIN SODIUM/TAZOBACTAM 3.375 GM in DEXTROSE 5% IN WATER 50 ML IV SCH (11:00)
[2022-02-07] MEDS: DOCUSATE SODIUM 100 MG CAPSULE PO SCH ×2 (11:56→21:54)
[2022-02-07] MEDS: levETIRAcetam 500 MG TABLET PO SCH (11:56)
[2022-02-07] MEDS: FAMOTIDINE/PF 20 MG/2 ML VIAL IV SCH ×2 (11:57→21:45)
[2022-02-07] MEDS: ACETAMINOPHEN 650 MG/65 ML BAG IV PRN ×2 (12:46→20:09)
[2022-02-07] MEDS: CARVEDILOL 3.125 MG TABLET PO SCH (13:28)
[2022-02-07] MEDS ORDERED: WARFARIN 5 MG TABLET PO SCH (14:00)
[2022-02-07] MEDS ORDERED: ENOXAPARIN 100 MG/ML SYRINGE SQ SCH (15:00)
[2022-02-07] MEDS: morphine 4 MG/ML VIAL IV PRN (15:54)
[2022-02-07] MEDS: PIPERACILLIN SODIUM/TAZOBACTAM 2.25 GM in DEXTROSE 5% IN WATER 50 ML IV SCH (17:39)
[2022-02-07] MEDS: levETIRAcetam 500 MG in 0.9 % SODIUM CHLORIDE 100 ML IV SCH (21:45)
[2022-02-07] MEDS: HYDROmorphone 0.5 MG/0.5 ML SYRINGE IV PRN (21:52)
[2022-02-07] MEDS: SENNOSIDES 1 TABLET PO SCH (21:54)
[2022-02-08] MEDS: PIPERACILLIN SODIUM/TAZOBACTAM 2.25 GM in DEXTROSE 5% IN WATER 50 ML IV SCH ×3 (00:22→12:34)
[2022-02-08] MEDS: 0.9 % SODIUM CHLORIDE 1,000 ML IV SCH ×2 (03:19→08:31)
[2022-02-08] MEDS: ACETAMINOPHEN 650 MG/65 ML BAG IV PRN (03:24)
[2022-02-08] MEDS: 0.9 % SODIUM CHLORIDE 10 ML SYRINGE IV SCH ×2 (06:24→12:43)
--- NOTE | 2022-02-08 07:03 | Orthopedic Progress Note ---
SUBJECTIVE Subjective Patient information: Note initiated : 02/08/22 at 6:58 am Service Date, if different from initiated Date: [] Patient: Mike Diaz 86 y/o M admitted on 02/04/22 for right hip pain, fall, on blood thinners. Chief Complaint: [s/p right hip davon arthroplasty ] Pertinent ROS: unobtainable due to patient condition Constitutional Vitals: Vital Signs Temp Pulse Resp BP Pulse Ox 97.1 F 59 L 20 111/83 95 02/07/22 22:34 02/08/22 06:01 02/08/22 06:01 02/08/22 06:01 02/08/22 06:01 Period Temp Pulse Resp BP Sys/Jamison Pulse Ox Last 24 Hr 97.1 F-98.8 F 57-64 15-24 76-113/51-83 90-100 Intake and Output 02/07/22 02/08/22 02/08/22 21:59 05:59 13:59 Intake Total 115 1220 50 Output Total 113 260 Balance 2 960 50 Weight 196 lb 4.8 oz Intake & Output: Intake & Output 02/07/22 02/08/22 02/08/22 21:59 05:59 13:59 Intake Total 115 1220 50 Output Total 113 260 Balance 2 960 50 Weight 196 lb 4.8 oz Intake: IV 115 1220 50 Sodium Chloride 0.9% 1,000 ml @ 1000 100 mls/hr IV .Q10H [facility] Rx#: [id number] Zosyn 2.25 gm In Dextrose 5% in 50 50 50 Water 50 ml @ 100 mls/hr IV Q6H [facility] Rx#:[id number] Keppra 500 mg In Sodium 105 Chloride 0.9% 100 ml @ 200 mls/ hr IV Q12 [facility] Rx#:[id number] Oral 0 Output: Urine Catheter Amount 113 160 Void Amount 100 Other: Urine Appearance Clear Clear Uretheral (Malone) Clear Clear Urine Color Dark Yellow Dark Yellow Uretheral (Malone) Dark Yellow Bright Yellow Urine Odor Normal Stool Size Large Stool Color Brown Stool Consistency Soft # Bowel Movements 1 # of times incontinent of 1 Bowels OBJ DATA Labs CBC & Chem 7: 02/07/22 05:13 02/07/22 05:13 Labs: Abnormal Lab Results 02/07/22 02/07/22 02/07/22 20:06 08:42 05:14 RBC Hgb Hct MCH MCHC RDW Plt Count MPV Immature Gran % (Auto) Neut % (Auto) Lymph % (Auto) [place] % (Auto) Lymph # (Auto) [place] # (Auto) Immature Gran # PT 15.4 H INR 1.2 H APTT 46.5 H POC pH 7.32 L POC pO2 33 L* POC HCO3 21.0 L POC Total CO2 22.0 L POC ABG Base Excess -5.0 L Hgb O2 Saturation 59.0 L Sodium Potassium Carbon Dioxide BUN Creatinine Glucose POC Arterial Lactate 2.2 H Calcium Magnesium Total Bilirubin Total Protein Albumin Urine Protein Urine Ketones Ur Leukocyte Esterase Urine RBC 02/07/22 02/07/22 02/06/22 05:13 05:13 05:37 RBC 3.82 L Hgb 9.5 L Hct 33.4 L MCH 24.9 L MCHC 28.4 L RDW 17.5 H Plt Count 86 L MPV 11.7 H Immature Gran % (Auto) 1.4 H Neut % (Auto) 79.6 H Lymph % (Auto) 6.8 L [place] % (Auto) Lymph # (Auto) 0.55 L [place] # (Auto) 0.97 H Immature Gran # 0.11 H PT INR APTT POC pH POC pO2 POC HCO3 POC Total CO2 POC ABG Base Excess Hgb O2 Saturation Sodium 129 L Potassium 5.3 H Carbon Dioxide 17 L BUN 39 H 26 H Creatinine 2.1 H Glucose 171 H 172 H POC Arterial Lactate Calcium 8.3 L Magnesium 3.2 H 3.1 H Total Bilirubin Total Protein 5.5 L 5.8 L Albumin 3.0 L Urine Protein Urine Ketones Ur Leukocyte Esterase Urine RBC 02/06/22 02/06/22 02/06/22 05:37 05:36 02:16 RBC 3.90 L 3.94 L Hgb 9.5 L 9.7 L Hct 32.3 L 32.5 L MCH 24.4 L 24.6 L MCHC 29.4 L 29.8 L RDW 16.3 H 16.2 H Plt Count MPV Immature Gran % (Auto) 0.7 H Neut % (Auto) 82.7 H 86.9 H Lymph % (Auto) 6.6 L 6.1 L [place] % (Auto) Lymph # (Auto) 0.41 L 0.35 L [place] # (Auto) Immature Gran # PT 15.5 H INR 1.2 H APTT POC pH POC pO2 POC HCO3 POC Total CO2 POC ABG Base Excess Hgb O2 Saturation Sodium Potassium Carbon Dioxide BUN Creatinine Glucose POC Arterial Lactate Calcium Magnesium Total Bilirubin Total Protein Albumin Urine Protein Urine Ketones Ur Leukocyte Esterase Urine RBC 02/05/22 02/05/22 02/05/22 20:11 14:17 11:56 RBC 4.21 L 3.94 L Hgb 10.3 L 9.8 L Hct 34.7 L 31.9 L MCH 24.5 L 24.9 L MCHC 29.7 L 30.7 L RDW 16.1 H 15.9 H Plt Count MPV Immature Gran % (Auto) Neut % (Auto) 86.5 H Lymph % (Auto) 6.1 L 11.0 L [place] % (Auto) 15.6 H Lymph # (Auto) 0.49 L 0.67 L [place] # (Auto) 0.95 H Immature Gran # PT INR APTT POC pH POC pO2 POC HCO3 POC Total CO2 POC ABG Base Excess Hgb O2 Saturation Sodium Potassium Carbon Dioxide BUN Creatinine Glucose POC Arterial Lactate Calcium Magnesium Total Bilirubin Total Protein Albumin Urine Protein 30 A Urine Ketones 5 A Ur Leukocyte Esterase 25 A Urine RBC 36 H 02/05/22 05:49 RBC Hgb Hct MCH MCHC RDW Plt Count MPV Immature Gran % (Auto) Neut % (Auto) Lymph % (Auto) [place] % (Auto) Lymph # (Auto) [place] # (Auto) Immature Gran # PT INR APTT POC pH POC pO2 POC HCO3 POC Total CO2 POC ABG Base Excess Hgb O2 Saturation Sodium 132 L Potassium Carbon Dioxide BUN Creatinine Glucose 126 H POC Arterial Lactate Calcium Magnesium 2.8 H Total Bilirubin 1.5 H Total Protein 5.7 L Albumin Urine Protein Urine Ketones Ur Leukocyte Esterase Urine RBC Meds: Medications Acetaminophen (Acetaminophen 325 Mg Tablet) 650 mg PO Q4-6HP PRN; Protocol PRN Reason: Per Pain Protocol/Fever > 101 Last Admin: 02/06/22 01:06 Dose: 650 mg Documented by: Hydrocodone Bitart/Acetaminophen (Hydrocodone/Apap 5/325mg Tablet) 0 tab PO Q4HP PRN; Protocol PRN Reason: Per Pain Protocol Last Admin: 02/06/22 12:41 Dose: 1 tab Documented by: Albuterol Sulfate (Albuterol Sulfate 2.5 Mg/3 Ml Nebulizer) 2.5 mg NEB Q4HRT PRN PRN Reason: wheezing Bisacodyl (Bisacodyl 10 Mg Supp.Rect) 10 mg [place] Q2-3DAYS PRN PRN Reason: Constipation Last Admin: 02/07/22 10:30 Dose: 10 mg Documented by: Cyclobenzaprine HCl (Cyclobenzaprine 10 Mg Tablet) 5 mg PO TIDP PRN PRN Reason: Muscle Spasm Last Admin: 02/06/22 20:39 Dose: 5 mg Documented by: Diltiazem HCl (Diltiazem 25 Mg/5 Ml Vial) 10 mg IV Q4HP PRN PRN Reason: Tachyarrhythmias Diphenhydramine HCl (Diphenhydramine 25 Mg Capsule) 25 mg PO HSP PRN PRN Reason: Insomnia Last Admin: 02/06/22 00:16 Dose: 25 mg Documented by: Docusate Sodium (Docusate Sodium 100 Mg Capsule) 100 mg PO BID [facility] Last Admin: 02/07/22 21:54 Dose: Not Given Documented by: Enoxaparin Sodium (Enoxaparin 100 Mg/Ml Syringe) 90 mg SQ DAILY [facility] Famotidine (Famotidine/Pf 20 Mg/2 Ml Vial) 20 mg IV Q12 [facility] Last Admin: 02/07/22 21:45 Dose: 20 mg Documented by: Hydralazine HCl (Hydralazine 20 Mg/Ml Vial) 10 mg IV Q4-6HP PRN PRN Reason: Hypertension Hydromorphone HCl (Hydromorphone 0.5 Mg/0.5 Ml Syringe) 0.25 mg IV Q2HP PRN; Protocol PRN Reason: Per Pain Protocol Last Admin: 02/07/22 21:52 Dose: 0.25 mg Documented by: Sodium Chloride (Sodium Chloride 0.9%) 1,000 mls @ 100 mls/hr IV .Q10H [facility] Last Admin: 02/08/22 03:19 Dose: 100 mls/hr Documented by: Acetaminophen (Ofirmev) 650 mg in 65 mls @ 130 mls/hr IV Q6HP PRN; Protocol PRN Reason: PAIN/FEVER > 101 Last Infusion: 02/08/22 03:54 Dose: Infused Documented by: Piperacillin Sod/Tazobactam (Sod 2.25 gm/ Dextrose) 50 mls @ 100 mls/hr IV Q6H [facility]; Protocol Last Infusion: 02/08/22 06:00 Dose: Infused Documented by: Levetiracetam 500 mg/ Sodium (Chloride) 105 mls @ 200 mls/hr IV Q12 [facility] Last Infusion: 02/07/22 22:17 Dose: Infused Documented by: Magnesium Hydroxide (Magnesium Hydroxide 30 Ml Oral.Susp) 30 ml PO BIDP PRN PRN Reason: Constipation Melatonin (Melatonin 3 Mg Tablet) 3 mg PO HSP PRN PRN Reason: Insomnia Last Admin: 02/06/22 20:15 Dose: 3 mg Documented by: Morphine Sulfate (Morphine 4 Mg/Ml Vial) 0 mg IV Q1HP PRN; Protocol PRN Reason: Per Pain Protocol Last Admin: 02/07/22 15:54 Dose: 2 mg Documented by: Ondansetron HCl (Ondansetron 4 Mg Odt Tablet) 4 mg SL Q4HP PRN; Protocol PRN Reason: Nausea And Vomiting Polyethylene Glycol (Polyethylene Glycol 3350 17 Gm Packet) 17 gm PO DAILYP PRN PRN Reason: Constipation Last Admin: 02/06/22 11:15 Dose: 17 gm Documented by: Promethazine HCl (Promethazine 25 Mg/Ml Vial) 12.5 mg IV Q4-6HP PRN; Protocol PRN Reason: Nausea And Vomiting Quetiapine Fumarate (Quetiapine 25 Mg Tablet) 12.5 mg PO HSP PRN PRN Reason: iNSOMNIA-2nd option Senna (Sennosides 1 Tablet) 2 tab PO HS [facility] Last Admin: 02/07/22 21:54 Dose: Not Given Documented by: Sodium Biphosphate/Sodium Phosphate (Fleets Adult Enema) 1 dose [place] Q3-4DAYS PRN PRN Reason: Constipation Sodium Chloride (0.9 % Sodium Chloride 10 Ml Syringe) 10 ml IV Q8 [facility] Last Admin: 02/08/22 06:24 Dose: Not Given Documented by: Tramadol HCl (Tramadol 50 Mg Tablet) 50 mg PO Q4-6HP PRN; Protocol PRN Reason: Pain Last Admin: 02/06/22 00:09 Dose: 50 mg Documented by: A/P Narrative A/P Narrative: Patient seen and examined this am, somnolent, responds to painful stimuli Dressing at [facility] both lower extremities are warm, perfused, palpable dorsalis pedis pulses. probable Post op delirium. WBAT w/ walker for assistance PT/OT pain control Stable from orthopedic standpoint will defer final disposition to attending hospitalist. Time Spent With Patient Time: Total time spent is greater than 50% in coordination of care (as documented) at patient's floor/unit and/or counseling patient:
[2022-02-08 07:55] LABS: ALT/SGPT 7 U/L (<40); AST/SGOT 25 U/L (<40); Albumin 2.7 gm/dL (3.2-5.2); Albumin/Globulin Ratio 1.2 (1.0-2.3); Alkaline Phosphatase 73 U/L (39-117); Bilirubin,Total 0.6 mg/dL (0.1-1.0); Blood Urea Nitrogen 46 mg/dL (8-23); Calcium 8.2 mg/dL (8.6-10.4); Carbon Dioxide 17 mmol/L (22-30); Chloride 100 mmol/L (96-108); Globulin 2.3 gm/dL (2.2-3.7); Glomerular Filtration Rate 27; Glucose 134 mg/dL (70-105)
[2022-02-08 08:06] LABS: INR 1.4 (0.9-1.1); Prothrombin Time 18.8 sec (11.9-14.5)
[2022-02-08] MEDS: DOCUSATE SODIUM 100 MG CAPSULE PO SCH ×2 (08:10→19:56)
[2022-02-08 08:28] LABS: Basophils # (Auto) 0.01 K/mcL (0.00-0.30); Basophils % (Auto) 0.2 % (0.0-2.0); Eosinophils # (Auto) 0.01 K/mcL (0.00-0.70); Eosinophils % (Auto) 0.2 % (0.0-7.0); Hematocrit 38.9 % (40.1-51.0); Hemoglobin 11.6 g/dL (13.7-17.5); Lymphocytes # (Auto) 0.45 K/mcL (1.50-4.80); Lymphocytes % (Auto) 6.9 % (15.5-49.0); Mean Cell Volume 82.2 fL (80.0-100.0); Mean Corpuscular HGB Conc 29.8 g/dL (31.0-36.0); Monocytes # (Auto) 0.68 K/mcL (0.10-0.90); Monocytes % (Auto) 10.4 % (1.0-12.0); Neutrophils % (Auto) 80.6 % (38.0-78.0); Platelet Count 68 K/mcL (140-440); RBC 4.73 M/mcL (4.63-6.08); Red Cell Distribution Width 18.6 % (11.5-14.5); WBC 6.6 K/mcL (4.5-11.0)
[2022-02-08] MEDS: morphine 4 MG/ML VIAL IV PRN ×3 (08:28→16:20)
[2022-02-08] MEDS: FAMOTIDINE/PF 20 MG/2 ML VIAL IV SCH (08:30)
[2022-02-08] MEDS ORDERED: ENOXAPARIN 100 MG/ML SYRINGE SQ SCH (09:00)
[2022-02-08] MEDS: levETIRAcetam 500 MG in 0.9 % SODIUM CHLORIDE 100 ML IV SCH (09:34)
--- NOTE | 2022-02-08 13:54 | Internal Med Progress Note ---
SUBJECTIVE Subjective Patient information: Note initiated : 02/08/22 at 1:49 pm Service Date, if different from initiated Date: [] Patient: Mike Diaz 86 y/o M admitted on 02/04/22 for right hip pain, fall, on blood thinners. 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 According to the patient has been very tired for the last 5 to 6 days and he slipped and fell onto his right hip this afternoon. Patient and denied hitting the head or hitting the spine area. Patient has externally rotated right leg with significant pain and cramping. He denied any numbness or tingling. Patient was evaluated and found to have a right femur fracture communicated with the orthopedic surgeon and planning for surgery. 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 Updated orthopedic surgeon and planning to proceed with the surgery. He also found to have a hemoglobin of 6.7 from 11 earlier this year. denied any melena or hematochezia. No previous history of GI bleed. Patient underwent CT scan of the abdomen and pelvis with contrast to look for any retroperitoneal bleed or intra-abdominal bleed which was negative. 02/05 Patient is slightly drowsy this morning His blood pressure is around 100 Hemoglobin 9.6 No hypoxia His crackles improved His INR is 1.2 Orthopedic team planning for surgery and eval pending We will continue monitoring his 02/06: Status post right hip Danny arthroplasty by orthopedic surgeons Dr. Ruano, with a blood loss about 150 cc, no major complications, and patient tolerated the surgery well. No bowel movement overnight since the surgery. Patient is currently complaining of 7 out of 10 right hip sharp constant pain. He denies any constipations or abdominal distention's. He is currently on 1 L of oxygen's. Restart Coumadin as lonnie-surgical prophylaxis. Tramadol, [place], morphine, Dilaudid, or available for pain control given severity. CBC daily to trend H&H. Continue Pepcid. Colace, senna, MiraLAX, milk of magnesia available for constipation. Pending physical therapy evaluations for placement pending. 02/07: Increasing level of altered mental status and also more lethargic. Blood pressure also guarded with a MAP of 64 mmHg at the moment. Also very poor urine output with average hourly urine output in the teens. H&H stable. INR 1.2, same as yesterday. Serum Cr 1.2-->2.1. Sodium/potassium 129 and 5.3, respectively. Will transferred patient's back from [facility] to [facility] for closer monitoring. Will order chest x-ray to rule out any acute intra thoracic pathology such as pneumonia. Will order CT of the head without contrast to look for acute intracranial pathologies such as stroke or intracranial bleed. We will continue IV fluid for hyper natremia as well as acute kidney injury. If MAP< 60mmHg, will start pressors. 02/08: Evaluated by speech therapist who placed the patient n.p.o. status. Patient is still very lethargic essentially comatose. Soft blood pressure. Poor urine output, kidney functions also deteriorating. Is on 3 L/min of nasal cannula oxygen. All cultures no growth to date. Checks x-ray from 02/07 showing worsening bilateral alveolar opacities likely secondary to congestive heart failure but cannot rule out superimposed pneumonia. CT of the head without cont rast on 02/07 did not show any acute intracranial pathologies. D5NS@100cc/hr. Zosyn for empiric antibiotics for presumed pneumonia. Had care conference with family members at the bedside regarding prognosis and goal of care, they are leaning to switching to comfort care only, but did not make final decision. Will readdress tomorrow. Constitutional Vitals: Vital Signs Temp Pulse Resp BP Pulse Ox 36.2 C 119 H 20 86/62 95 02/07/22 22:34 02/08/22 12:01 02/08/22 06:01 02/08/22 12:01 02/08/22 12:01 Period Temp Pulse Resp BP Sys/Jamison Pulse Ox Last 24 Hr 36.2 C-37.1 C 57-119 16-22 82-113/51-83 90-100 Intake and Output 02/07/22 02/08/22 02/08/22 21:59 05:59 13:59 Intake Total 115 1220 155 Output Total 113 260 55 Balance 2 960 100 Weight 89.04 kg Intake & Output: Intake & Output 02/07/22 02/08/22 02/08/22 21:59 05:59 13:59 Intake Total 115 1220 155 Output Total 113 260 55 Balance 2 960 100 Weight 89.04 kg Intake: IV 115 1220 155 Sodium Chloride 0.9% 1,000 ml @ 1000 100 mls/hr IV .Q10H [facility] Rx#: [id number] Zosyn 2.25 gm In Dextrose 5% in 50 50 50 Water 50 ml @ 100 mls/hr IV Q6H [facility] Rx#:[id number] Keppra 500 mg In Sodium 105 105 Chloride 0.9% 100 ml @ 200 mls/ hr IV Q12 [facility] Rx#:[id number] Oral 0 Output: Urine Catheter Amount 113 160 55 Void Amount 100 Other: Urine Appearance Clear Clear Clear Uretheral (Malone) Clear Clear Clear Urine Color Dark Yellow Dark Yellow Bright Yellow Uretheral (Malone) Dark Yellow Bright Yellow Dark Yellow Urine Odor Normal Stool Size Large Stool Color Brown Stool Consistency Soft # Bowel Movements 1 # of times incontinent of 1 Bowels General appearance: average body habitus and disheveled Head Head exam: Present atraumatic and normal inspection Eye Eye exam: Present normal appearance ENT ENT exam: Present mucous membranes moist, normal exam and normal external ear exam Additional comments: Nasal cannula in place Neck Neck exam: Present normal inspection Respiratory Respiratory exam: Present decreased breath sounds Cardiovascular Cardiovascular exam: Present normal rate and rhythm GI/Abdominal GI/Abdominal exam: Present normal bowel sounds Additional comments: Malone catheter in place Extremities Exam Additional comments: Right lateral hip covered by surgical dressing Back Exam Back exam: Present normal inspection Neurological Exam Neurological exam: Present altered; Absent alert or oriented X3 Additional comments: lethargic/comatose Skin Skin exam: Present intact and warm OBJ DATA Labs CBC & Chem 7: 02/08/22 05:39 02/08/22 05:39 Labs: Abnormal Lab Results 02/08/22 02/08/22 02/08/22 05:40 05:39 05:39 RBC Hgb 11.6 L Hct 38.9 L MCH 24.5 L MCHC 29.8 L RDW 18.6 H Plt Count 68 L MPV 11.0 H Immature Gran % (Auto) 1.7 H Neut % (Auto) 80.6 H Lymph % (Auto) 6.9 L [place] % (Auto) Lymph # (Auto) 0.45 L [place] # (Auto) Immature Gran # 0.11 H PT 18.8 H INR 1.4 H APTT POC pH POC pO2 POC HCO3 POC Total CO2 POC ABG Base Excess Hgb O2 Saturation Sodium Potassium Carbon Dioxide 17 L BUN 46 H Creatinine 2.1 H Glucose 134 H POC Arterial Lactate Calcium 8.2 L Magnesium 3.0 H Total Protein 5.0 L Albumin 2.7 L 02/07/22 02/07/22 02/07/22 20:06 08:42 05:14 RBC Hgb Hct MCH MCHC RDW Plt Count MPV Immature Gran % (Auto) Neut % (Auto) Lymph % (Auto) [place] % (Auto) Lymph # (Auto) [place] # (Auto) Immature Gran # PT 15.4 H INR 1.2 H APTT 46.5 H POC pH 7.32 L POC pO2 33 L* POC HCO3 21.0 L POC Total CO2 22.0 L POC ABG Base Excess -5.0 L Hgb O2 Saturation 59.0 L Sodium Potassium Carbon Dioxide BUN Creatinine Glucose POC Arterial Lactate 2.2 H Calcium Magnesium Total Protein Albumin 02/07/22 02/07/22 02/06/22 05:13 05:13 05:37 RBC 3.82 L Hgb 9.5 L Hct 33.4 L MCH 24.9 L MCHC 28.4 L RDW 17.5 H Plt Count 86 L MPV 11.7 H Immature Gran % (Auto) 1.4 H Neut % (Auto) 79.6 H Lymph % (Auto) 6.8 L [place] % (Auto) Lymph # (Auto) 0.55 L [place] # (Auto) 0.97 H Immature Gran # 0.11 H PT INR APTT POC pH POC pO2 POC HCO3 POC Total CO2 POC ABG Base Excess Hgb O2 Saturation Sodium 129 L Potassium 5.3 H Carbon Dioxide 17 L BUN 39 H 26 H Creatinine 2.1 H Glucose 171 H 172 H POC Arterial Lactate Calcium 8.3 L Magnesium 3.2 H 3.1 H Total Protein 5.5 L 5.8 L Albumin 3.0 L 02/06/22 02/06/22 02/06/22 05:37 05:36 02:16 RBC 3.90 L 3.94 L Hgb 9.5 L 9.7 L Hct 32.3 L 32.5 L MCH 24.4 L 24.6 L MCHC 29.4 L 29.8 L RDW 16.3 H 16.2 H Plt Count MPV Immature Gran % (Auto) 0.7 H Neut % (Auto) 82.7 H 86.9 H Lymph % (Auto) 6.6 L 6.1 L [place] % (Auto) Lymph # (Auto) 0.41 L 0.35 L [place] # (Auto) Immature Gran # PT 15.5 H INR 1.2 H APTT POC pH POC pO2 POC HCO3 POC Total CO2 POC ABG Base Excess Hgb O2 Saturation Sodium Potassium Carbon Dioxide BUN Creatinine Glucose POC Arterial Lactate Calcium Magnesium Total Protein Albumin 02/05/22 02/05/22 20:11 14:17 RBC 4.21 L 3.94 L Hgb 10.3 L 9.8 L Hct 34.7 L 31.9 L MCH 24.5 L 24.9 L MCHC 29.7 L 30.7 L RDW 16.1 H 15.9 H Plt Count MPV Immature Gran % (Auto) Neut % (Auto) 86.5 H Lymph % (Auto) 6.1 L 11.0 L [place] % (Auto) 15.6 H Lymph # (Auto) 0.49 L 0.67 L [place] # (Auto) 0.95 H Immature Gran # PT INR APTT POC pH POC pO2 POC HCO3 POC Total CO2 POC ABG Base Excess Hgb O2 Saturation Sodium Potassium Carbon Dioxide BUN Creatinine Glucose POC Arterial Lactate Calcium Magnesium Total Protein Albumin Meds: Medications Acetaminophen (Acetaminophen 325 Mg Tablet) 650 mg PO Q4-6HP PRN; Protocol PRN Reason: Per Pain Protocol/Fever > 101 Last Admin: 02/06/22 01:06 Dose: 650 mg Documented by: Hydrocodone Bitart/Acetaminophen (Hydrocodone/Apap 5/325mg Tablet) 0 tab PO Q4HP PRN; Protocol PRN Reason: Per Pain Protocol Last Admin: 02/06/22 12:41 Dose: 1 tab Documented by: Albuterol Sulfate (Albuterol Sulfate 2.5 Mg/3 Ml Nebulizer) 2.5 mg NEB Q4HRT PRN PRN Reason: wheezing Bisacodyl (Bisacodyl 10 Mg Supp.Rect) 10 mg [place] Q2-3DAYS PRN PRN Reason: Constipation Last Admin: 02/07/22 10:30 Dose: 10 mg Documented by: Cyclobenzaprine HCl (Cyclobenzaprine 10 Mg Tablet) 5 mg PO TIDP PRN PRN Reason: Muscle Spasm Last Admin: 02/06/22 20:39 Dose: 5 mg Documented by: Diltiazem HCl (Diltiazem 25 Mg/5 Ml Vial) 10 mg IV Q4HP PRN PRN Reason: Tachyarrhythmias Diphenhydramine HCl (Diphenhydramine 25 Mg Capsule) 25 mg PO HSP PRN PRN Reason: Insomnia Last Admin: 02/06/22 00:16 Dose: 25 mg Documented by: Docusate Sodium (Docusate Sodium 100 Mg Capsule) 100 mg PO BID [facility] Last Admin: 02/08/22 08:10 Dose: Not Given Documented by: Enoxaparin Sodium (Enoxaparin 100 Mg/Ml Syringe) 90 mg SQ DAILY [facility] Last Admin: 02/08/22 08:30 Dose: 90 mg Documented by: Famotidine (Famotidine/Pf 20 Mg/2 Ml Vial) 20 mg IV Q12 [facility] Last Admin: 02/08/22 08:30 Dose: 20 mg Documented by: Hydralazine HCl (Hydralazine 20 Mg/Ml Vial) 10 mg IV Q4-6HP PRN PRN Reason: Hypertension Hydromorphone HCl (Hydromorphone 0.5 Mg/0.5 Ml Syringe) 0.25 mg IV Q2HP PRN; Protocol PRN Reason: Per Pain Protocol Last Admin: 02/07/22 21:52 Dose: 0.25 mg Documented by: Sodium Chloride (Sodium Chloride 0.9%) 1,000 mls @ 100 mls/hr IV .Q10H [facility] Last Admin: 02/08/22 08:31 Dose: Not Given Documented by: Acetaminophen (Ofirmev) 650 mg in 65 mls @ 130 mls/hr IV Q6HP PRN; Protocol PRN Reason: PAIN/FEVER > 101 Last Infusion: 02/08/22 03:54 Dose: Infused Documented by: Piperacillin Sod/Tazobactam (Sod 2.25 gm/ Dextrose) 50 mls @ 100 mls/hr IV Q6H [facility]; Protocol Last Admin: 02/08/22 12:34 Dose: 100 mls/hr Documented by: Levetiracetam 500 mg/ Sodium (Chloride) 105 mls @ 200 mls/hr IV Q12 [facility] Last Infusion: 02/08/22 10:52 Dose: Infused Documented by: Magnesium Hydroxide (Magnesium Hydroxide 30 Ml Oral.Susp) 30 ml PO BIDP PRN PRN Reason: Constipation Melatonin (Melatonin 3 Mg Tablet) 3 mg PO HSP PRN PRN Reason: Insomnia Last Admin: 02/06/22 20:15 Dose: 3 mg Documented by: Morphine Sulfate (Morphine 4 Mg/Ml Vial) 0 mg IV Q1HP PRN; Protocol PRN Reason: Per Pain Protocol Last Admin: 02/08/22 12:35 Dose: 4 mg Documented by: Ondansetron HCl (Ondansetron 4 Mg Odt Tablet) 4 mg SL Q4HP PRN; Protocol PRN Reason: Nausea And Vomiting Polyethylene Glycol (Polyethylene Glycol 3350 17 Gm Packet) 17 gm PO DAILYP PRN PRN Reason: Constipation Last Admin: 02/06/22 11:15 Dose: 17 gm Documented by: Promethazine HCl (Promethazine 25 Mg/Ml Vial) 12.5 mg IV Q4-6HP PRN; Protocol PRN Reason: Nausea And Vomiting Quetiapine Fumarate (Quetiapine 25 Mg Tablet) 12.5 mg PO HSP PRN PRN Reason: iNSOMNIA-2nd option Senna (Sennosides 1 Tablet) 2 tab PO HS [facility] Last Admin: 02/07/22 21:54 Dose: Not Given Documented by: Sodium Biphosphate/Sodium Phosphate (Fleets Adult Enema) 1 dose [place] Q3-4DAYS PRN PRN Reason: Constipation Sodium Chloride (0.9 % Sodium Chloride 10 Ml Syringe) 10 ml IV Q8 [facility] Last Admin: 02/08/22 12:43 Dose: 10 ml Documented by: Tramadol HCl (Tramadol 50 Mg Tablet) 50 mg PO Q4-6HP PRN; Protocol PRN Reason: Pain Last Admin: 02/06/22 00:09 Dose: 50 mg Documented by: A/P Assessment and plan (1) Closed fracture of right hip: Status: Acute (2) Anemia: Status: Acute (3) Factor V Leiden: Status: Chronic (4) CHF NYHA class III (symptoms with mildly strenuous activities): Status: Chronic (5) Artificial pacemaker: Status: Acute (6) Chronic anticoagulation: Status: Chronic (7) Chronic constipation: Status: Acute (8) Delirium: Status: Acute (9) Stage 2 acute kidney injury: Status: Acute (10) Hyponatremia: Status: Acute (11) Hyperkalemia: Status: Acute Narrative A/P Narrative: Assessment and Plans: 1. Right closed hip fracture, s/p right hip arthroplasty by orthopedic surgeon Dr. Ruano 02/05: Inpatient PCU Physical therapy evaluation and treatment and for placement pending Pain controlled with tramadol, [place], IV morphine, IV Dilaudid for different severity is of pain Lovenox 1mg/kg SQ daily 2. Blood loss anemia in the context of factor V Leyden: Lovenox 1mg/kg SQ daily Pepcid IV BID cbc w/ auto diff daily to trend H/H 3. h/o CHF NYHA III: Hold diuretics, and instead do D5NS@100cc/hr Continue supplemental oxygen therapy as needed titrate to achieve SPO2 greater than or equal to 92% 4. History of chronic constipation: Colace Senna Milk of Magnesia Miralax 5. Acute delirium: DDx: encephalopathy 2/2 recent surgery, CVA, multiorgan failure CT head w/o contrast to rule out stroke/intracranial bleed-->no acute intracranial pathologies Treat other underlying cause of delirium such as pain Frequent re-orientation during the day and protected sleep during the night Had care conference with family members at the bedside regarding prognosis and goal of care, they are leaning to switching to comfort care only, but did not make final decision. Will readdress tomorrow 6. Stage 2 acute kidney injury with electrolytes imbalance: D5NS@100cc/hr Avoid nephrotoxic agents CMP daily and urine output measurement GI ppx: Pepcid IV BID DVT ppx: Lovenox 1mg/kg daily Code status: DNR Prognosis: guarded Disposition: inpatient PCU; PT; Had care conference with family members at the bedside regarding prognosis and goal of care, they are leaning to switching to comfort care only, but did not make final decision. Will readdress tomorrow. Time Spent With Patient Time: Total time spent is greater than 50% in coordination of care (as documented) at patient's floor/unit and/or counseling patient: Total time spent with greater than 50% in coordination of care (as documented) at patient's floor/unit and/or counseling patient:: 35 - 50 minutes QUALITY VTE Deep Vein Thrombosis/Pulmonary Embolism Present on Admission: No
[2022-02-08] MEDS ORDERED: DEXTROSE 5%-NS 1,000 ML IV SCH (14:00)
[2022-02-08] MEDS ORDERED: morphine 4 MG/ML VIAL IV PRN (17:19)
[2022-02-08] MEDS ORDERED: LORazepam 2 MG/ML VIAL IV PRN (17:19)
[2022-02-08] MEDS ORDERED: HYDROmorphone 1 MG/ML SYRINGE IV PRN (17:19)
[2022-02-08] MEDS: SENNOSIDES 1 TABLET PO SCH (19:56)
[2022-02-08] MEDS ORDERED: 0.9 % SODIUM CHLORIDE 10 ML SYRINGE IV SCH (22:00)
--- NOTE | 2022-02-09 08:30 | Death Note ---
Discharge Sum: Prov Provider Patient information: Note initiated : 02/09/22 at 8:28 am Service Date, if different from initiated Date: [] Patient: Mike Diaz 86 y/o M admitted on 02/04/22 for right hip pain, fall, on blood thinners. Chief Complaint: [] Primary care physician: Dallas Hancock Attending physician on admission: Falguni Hoover Consults: 02/04/22 Consult to Physician [CONS] Stat Comment: Consulting Provider: Willis Ruano Reason For Exam: Physician to Consult Consult to Physician [CONS] Stat Comment: Consulting Provider: Falguni Hoover Reason For Exam: Physician to Consult Pronouncing clinician: Ole Iglesias Pucarlitos Discharge Sum: Diag Contributing Factors (1) Closed fracture of right hip: (2) Anemia: (3) Factor V Leiden: (4) CHF NYHA class III (symptoms with mildly strenuous activities): (5) Artificial pacemaker: (6) Chronic anticoagulation: (7) Chronic constipation: (8) Delirium: (9) Stage 2 acute kidney injury: (10) Hyponatremia: (11) Hyperkalemia: Discharge Sum: Summary Date and Time Date of admission: 02/04/22 21:05 Date of : 03/11/22 Time of : 22:15 Additional Data Confirmation of as documented by pronouncing clinician: no pulse, no respirations, no heart sounds and pupils fixed and dilated Attending/PCP notified?: Yes Attending physician: Falguni Hoover MD Was code activated?: No Autopsy requested?: No
== END 2022-02-08 23:52 | disposition expired | DRG 522 ==
LOC: ED 14:08 → ICU 21:05
PROVIDERS: ADMIT Internal Medicine; ATTEND Internal Medicine